=== PATIENT | male | born 1970 | race African-American/Black ===

== ENCOUNTER → 2017-10-09 11:09 | Outpatient (CLI) | payer BC, SELFPAY ==
[2017-10-09 11:50] LABS: Amphetamine Urine VISTA NEGATIVE (<1000 ng/mL); Barbiturate Urine VISTA NEGATIVE (< 200 ng/mL); Benzodiazepine Urine VISTA NEGATIVE (< 200 ng/mL); Cocaine Urine VISTA NEGATIVE (< 300 ng/mL); Ecstacy Urine VISTA NEGATIVE (< 500 ng/mL); Methadone Urine VISTA NEGATIVE (< 300 ng/mL); PCP Urine VISTA NEGATIVE (< 25 ng/mL); THC Urine VISTA NEGATIVE (< 50 ng/mL); Vista UDS pH Range 5
== END ==
PROVIDERS: Family Provider Family Medicine; PCP Family Medicine; Visit Provider Anesthesiology Pain Medicine
DX: F11.20 Opioid dependence, uncomplicated (principal)
CPT/HCPCS: 80307

== ENCOUNTER → 2017-10-31 09:30 | Outpatient (CLI) | payer BC, SELFPAY ==
[2017-10-31 12:16] LABS: Absolute Lymphocyte Count 1.87 X10^3/ul (0.83-4.51); Absolute Neutrophil Count 3.8 X10^3/uL (2.0-7.7); Basophil# 0.01 X10^3/uL; Basophil% 0.2 % (0-1); Eosinophil# 0.19 X10^3/uL; Hematocrit 42.9 % (40-54); Hemoglobin 14.3 g/dl (13.0-16.5); Lymphocyte # 1.87 X10^3/ul (4.0); Lymphocyte % 29.2 % (19-41); Mean Corp Hgb Conc 33.3 g/gl (32-36); Mean Corpuscular Hgb 30.5 pg (27.0-32.0); Mean Corpuscular Volume 91.5 fL (80-94); Mean Platelet Vol. 10.1 fl (6.2-12.0); Monocyte# 0.48 X10^3/uL; Monocyte% 7.5 % (0-10); Neutrophil # 3.84 X10^3/uL (2.7-7.7); Neutrophil % 59.9 % (47-70); Platelet Count 318 K/mm3 (150-450); RBC Distribution Width CV 13.4 % (11.6-14.6); RBC Distribution Width SD 44.3 fl (35.1-43.9); Red Blood Count 4.69 M/mm3 (4.6-6.2); White Blood Count 6.4 K/mm3 (4.4-11.0)
[2017-10-31 12:26] LABS: POSITIVE COUNT NO; POSITIVE DIFFERENTIAL NO; POSITIVE MORPHOLOGY NO
[2017-10-31 12:58] LABS: Anion Gap 8 (5-15); BUN 15 mg/dL (7-18); BUN/Creat Ratio 11.6 RATIO (10-20); Calcium,Total 8.9 mg/dL (8.5-10.1); Chloride 107 mmol/L (98-107); Creatinine, Serum 1.29 mg/dL (0.70-1.30); EST Glomerular Filtration Rate 63 mL/min (>60); Est Glom Filt Rate - Afr Amer 76 mL/min (>60); Glucose 94 mg/dL (74-106); PSA,Total - Annual Screen 0.35 ng/mL (0.00-4.00); Potassium 4.2 mmol/L (3.5-5.1); Sodium Level 142 mmol/L (136-145)
== END ==
PROVIDERS: Family Provider Family Medicine; PCP Family Medicine; Visit Provider Family Medicine
DX: I12.9 Hypertensive chronic kidney disease with stage 1 through stage 4 chronic kidney disease, or unspecified chronic kidney disease (principal); N18.2 Chronic kidney disease, stage 2 (mild); E29.1 Testicular hypofunction; Z12.5 Encounter for screening for malignant neoplasm of prostate
CPT/HCPCS: 36415; 80048; 84153; 84403; 85025; G0103

== ENCOUNTER → 2018-02-20 06:24 | Outpatient (CLI) | payer BC, SELFPAY ==
--- NOTE | 2018-02-20 06:38 | MRI_ITS ---
STUDY: MRI LUMBAR SPINE WITHOUT CONTRAST REASON FOR EXAM: Male, 47 years old. back pain, left leg pain; hx prior fusion 2013, bilat leg weakness, lt sciatic pain. TECHNIQUE: Standardized fat and water weighted pulse sequences were obtained in the sagittal and axial planes. COMPARISON: March 27, 2014 FINDINGS: T12-L1: Normal endplates. Normal disc height, hydration and morphology. Normal bilateral facet joints. Normal central canal and bilateral lateral recesses. Normal bilateral intervertebral neural foramina. Normal lumbar lordosis. There is no substantial scoliosis. Normal conus medullaris that terminates at the T12/L1 L1-2: Normal endplates. Normal disc height, hydration and morphology. Normal bilateral facet joints. Normal central canal and bilateral lateral recesses. Normal bilateral intervertebral neural foramina. L2-3: Normal endplates. Normal disc height, hydration and morphology. Normal bilateral facet joints. Normal central canal and bilateral lateral recesses. Normal bilateral intervertebral neural foramina. L3-4: There is minimal disc space narrowing and endplate spondylosis. There is a mild disc bulge asymmetric to the left with mild left foraminal stenosis. There is no significant central canal or right foraminal stenosis. L4-5: There is mild disc space narrowing and endplate spondylosis. There is a disc spacer in place. There is a posterior transpedicular screw fixation. There is no significant central canal stenosis. There is mild bilateral foraminal stenosis. L5-S1: There is minimal disc space narrowing and endplate spondylosis. There is a mild disc bulge and facet arthropathy without significant central canal stenosis. There is mild right foraminal stenosis. Normal visualized sacral ala. Normal visualized paraspinous soft tissue structures. MRI/Spine Lumbar (Routine) IMPRESSION: L4/L5: Posterior fusion. Electronically Signed: Adrien Berry MD at 8:03 EDT Tel , Service support ,
== END ==
PROVIDERS: Family Provider Family Medicine; PCP Family Medicine; Visit Provider Anesthesiology Pain Medicine
DX: M54.9 Dorsalgia, unspecified (principal); M79.605 Pain in left leg
CPT/HCPCS: 72148

== ENCOUNTER → 2018-07-27 12:14 | Outpatient (CLI) | payer BC, SELFPAY ==
[2018-07-27 13:38] LABS: Amphetamine Urine VISTA NEGATIVE (<1000 ng/mL); Barbiturate Urine VISTA NEGATIVE (< 200 ng/mL); Benzodiazepine Urine VISTA NEGATIVE (< 200 ng/mL); Cocaine Urine VISTA NEGATIVE (< 300 ng/mL); Ecstacy Urine VISTA NEGATIVE (< 500 ng/mL); Methadone Urine VISTA NEGATIVE (< 300 ng/mL); PCP Urine VISTA NEGATIVE (< 25 ng/mL); THC Urine VISTA NEGATIVE (< 50 ng/mL); Vista UDS pH Range 6
== END ==
PROVIDERS: Family Provider Family Medicine; PCP Family Medicine; Referring Provider Anesthesiology Pain Medicine; Visit Provider Anesthesiology Pain Medicine
DX: F11.20 Opioid dependence, uncomplicated (principal)
CPT/HCPCS: 80307

== ENCOUNTER → 2019-02-25 09:13 | Outpatient (CLI) | payer BC, SELFPAY ==
[2019-02-25 12:28] LABS: Absolute Lymphocyte Count 2.17 X10^3/uL (0.83-4.51); Absolute Neutrophil Count 4.3 X10^3/uL (2.0-7.7); Basophil# 0.03 X10^3/uL; Basophil% 0.4 % (0-1); Eosinophil# 0.21 X10^3/uL; Eosinophils% 2.9 % (0-5); Hematocrit 42.8 % (40-54); Hemoglobin 14.1 g/dL (13.0-16.5); Lymphocyte # 2.17 X10^3/ul (4.0); Lymphocyte % 29.8 % (19-41); Mean Corp Hgb Conc 32.9 g/dL (32-36); Mean Corpuscular Hgb 30.7 pg (27.0-32.0); Mean Corpuscular Volume 93.2 fL (80-94); Mean Platelet Vol. 10.6 fl (6.2-12.0); Monocyte% 8.2 % (0-10); NRBC Flagged by Analyzer 0 % (0-5); Neutrophil # 4.26 X10^3/uL (2.7-7.7); Neutrophil % 58.6 % (47-70); Platelet Count 290 K/mm3 (150-450); RBC Distribution Width CV 12.9 % (11.6-14.6); RBC Distribution Width SD 43.8 fl (35.1-43.9); Red Blood Count 4.59 M/mm3 (4.6-6.2); White Blood Count 7.3 K/mm3 (4.4-11.0)
[2019-02-25 12:46] LABS: ALB/GLOB Ratio 1.1 RATIO (0.9-2.4); AST(SGOT) 21 U/L (15-37); Alanine Aminotransfer ALT/SGPT 52 U/L (16-61); Albumin, Serum 3.9 g/dL (3.2-5.0); Alkaline Phosphatase 55 U/L (45-117); Anion Gap 6 (5-15); BUN 16 mg/dL (7-18); BUN/Creat Ratio 12.2 RATIO (10-20); Calcium,Total 8.7 mg/dL (8.5-10.1); Chloride 110 mmol/L (98-107); Cholesterol 138 mg/dL (200); Creatinine, Serum 1.31 mg/dL (0.70-1.30); EST Glomerular Filtration Rate 62 mL/min (>60); Est Glom Filt Rate - Afr Amer 75 mL/min (>60); Globulin 3.4 g/dL (2.2-4.2); Glucose 93 mg/dL (74-106); High Density Lipoprotein 41 mg/dL; Magnesium 2.4 mg/dL (1.6-2.6); PSA,Total - Annual Screen 0.36 ng/mL (0.00-4.00); Potassium 4.3 mmol/L (3.5-5.1); Protein, Total 7.3 g/dL (6.4-8.2); Sodium Level 142 mmol/L (136-145); Triglycerides 50 mg/dL; Very Low Density Lipoprotein 10 mg/dL (5-40)
== END ==
PROVIDERS: Family Provider Family Medicine; PCP Family Medicine; Visit Provider Family Medicine
DX: R25.2 Cramp and spasm (principal); Z78.9 Other specified health status; R35.1 Nocturia; I12.9 Hypertensive chronic kidney disease with stage 1 through stage 4 chronic kidney disease, or unspecified chronic kidney disease; N18.2 Chronic kidney disease, stage 2 (mild)
CPT/HCPCS: 36415; 80053; 80061; 83735; 84153; 85025; G0103

== ENCOUNTER → 2019-03-04 08:07 | Outpatient (CLI) | payer BC, SELFPAY ==
--- NOTE | 2019-03-04 08:11 | US_ITS ---
STUDY: RENAL ULTRASOUND - COMPLETE REASON FOR EXAM: Male, 48 years old. Chronic renal disease TECHNIQUE: Ultrasound evaluation of the kidneys was performed with real-time and static jolley-scale imaging. COMPARISON: None. FINDINGS: RIGHT KIDNEY: Normal location of the right kidney, which is normal in size. The right kidney measures 11.8 x 5.9 x 5.6 cm. There is a normal cortex of the right kidney. The renal cortex measures 2.2 cm. There is no right renal mass or cyst. There are no right renal calculi. There is no right hydronephrosis. DISTAL RIGHT URETER: There is non-visualization of the distal right ureter. There is no demonstrated right ureterovesical junction calculus. There is a visualized right ureteral jet. LEFT KIDNEY: Normal location of the left kidney, which is normal in size. The left kidney measures 11.7 x 4.5 x 6.3 cm. There is a normal cortex of the left kidney. The renal cortex measures 1.7 cm. There is no left renal mass or cyst. There are no left renal calculi. There is no left hydronephrosis. DISTAL LEFT URETER: There is non-visualization of the distal left ureter. There is no demonstrated left ureterovesical junction calculus. There is a visualized left ureteral jet. There are diffusely increased cortical echoes and prominent renal pyramids consistent with nonspecific renal parenchymal disease. BLADDER: The distended urinary bladder has a volume of 62.60 ml. The empty urinary bladder has a volume of 3.7 ml. There is a normal wall thickness of the distended urinary bladder. There is no demonstrated mass within the urinary bladder. There are no demonstrated bladder calculi. US/Kidney and Bladder IMPRESSION: Findings consistent with nonspecific renal parenchymal disease Electronically Signed: Aneudy Alston MD at 18:00 EDT , Service support ,
== END ==
PROVIDERS: Family Provider Family Medicine; PCP Family Medicine; Referring Provider Family Medicine; Visit Provider Family Medicine
DX: I12.9 Hypertensive chronic kidney disease with stage 1 through stage 4 chronic kidney disease, or unspecified chronic kidney disease (principal); N18.2 Chronic kidney disease, stage 2 (mild)
CPT/HCPCS: 76770

== ENCOUNTER → 2019-04-01 10:20 | Outpatient (CLI) | payer BC, SELFPAY ==
--- NOTE | 2019-04-01 10:25 | RAD_ITS ---
STUDY: X-RAY - LUMBAR SPINE REASON FOR EXAM: Male, 48 years old. Low back pain TECHNIQUE: 3 view(s) of the lumbar spine were obtained. COMPARISON: 20 February 2018, FINDINGS: Normal lumbar lordosis. There is no substantial scoliosis. There is a normal alignment of the vertebrae. Normal vertebral bodies and endplates. Normal disc space heights. There is L5-S1 pedicular screw fusion and disc spacer. Hardware is intact with normal bone interface. The soft tissue structures are unremarkable. RAD/Lumbar Spine 2 or 3 Views IMPRESSION: Expected appearance of L5-S1 pedicular screw fusion. Otherwise unremarkable lumbar radiograph. Electronically Signed: Guera Tillman, at 18:25 EDT Tel , Service support ,
== END ==
PROVIDERS: Family Provider Family Medicine; PCP Family Medicine; Referring Provider Anesthesiology Pain Medicine; Visit Provider Anesthesiology Pain Medicine
DX: M54.9 Dorsalgia, unspecified (principal)
CPT/HCPCS: 72100

== ENCOUNTER → 2019-05-15 10:40 | Outpatient (CLI) | payer BC, SELFPAY ==
[2019-05-15 11:11] LABS: Color, Urine Yellow (Yellow); Glucose, Dipstick Normal (Normal); Ketone-Dipstick Negative (Negative); Leukocyte Esterase-Dipstick Negative /ul (Negative); Nitrite-Dipstick Negative (Negative); Occult Blood-Urine 50 /ul (Negative); Protein-Dipstick 500 mg/dl (Negative); Urine Bilirubin Dipstick Negative (Negative); Urine Clarity Clear (Clear); Urine Urobilinogen Normal (Normal)
[2019-05-15 11:20] LABS: 24 Hour Urine Protein 2062.5 mg/24HR (<150 MG/24HR); 24HR. UA Prot. Total Volume 750 mL
[2019-05-15 11:21] LABS: Protein, Urine (Random) 480.6 mg/dL (<11.9); Protein:Creat Ratio 1986 mg/g CRE (0-200)
[2019-05-15 11:31] LABS: Anion Gap 6 (5-15); BUN 28 mg/dL (7-18); BUN/Creat Ratio 15.5 RATIO (10-20); Calcium,Total 8.7 mg/dL (8.5-10.1); Chloride 102 mmol/L (98-107); Creat.Clear Total Volume 750 mL; Creatinine Clearance 80 ml/min (100-200); Creatinine Serum Creat 1.8 mg/dL (0.8-1.3); Creatinine, Serum 1.81 mg/dL (0.70-1.30); EST Glomerular Filtration Rate 42 mL/min (>60); Est Glom Filt Rate - Afr Amer 51 mL/min (>60); Glucose 81 mg/dL (74-106); Potassium 4.1 mmol/L (3.5-5.1); Sodium Level 137 mmol/L (136-145)
[2019-05-17 15:18] LABS: PROEL- A/G Ratio 1.1 (0.7-1.7); PROEL- Albumin 3.5 g/dL (2.9-4.4); PROEL- Alpha-1 Globulin 0.3 g/dL (0.0-0.4); PROEL- Alpha-2 Globulin 0.9 g/dL (0.4-1.0); PROEL- Beta Globulin 1.2 g/dL (0.7-1.3); PROEL- Globulin, Total 3.3 g/dL (2.2-3.9); PROEL- TOTAL PROTEIN 6.8 g/dL (6.0-8.5); PROELU- Albumin, Urine 72.2 % (.); PROELU- Alpha-1-Globulin,Ur 7.5 % (.); PROELU- Alpha-2-Globulin,Ur 6.1 % (.); PROELU- Beta Globulin, Ur 9.1 % (.); PROELU- Gamma Globulin, Ur 5.1 % (.)
[2019-05-17 16:57] LABS: Total Protein, Ur 480.9 mg/dL (Not Estab.)
== END ==
PROVIDERS: Family Provider Family Medicine; PCP Family Medicine; Referring Provider Internal Medicine; Visit Provider Internal Medicine
DX: N18.2 Chronic kidney disease, stage 2 (mild) (principal)
CPT/HCPCS: 36415; 80048; 81002; 81050; 82570; 82575; 84156; 84165; 84166

== ENCOUNTER → 2019-10-14 12:32 | Outpatient (CLI) | payer BC, SELFPAY ==
[2019-10-14 13:31] LABS: Color, Urine Yellow (Yellow); Glucose, Dipstick Normal (Normal); Ketone-Dipstick Negative (Negative); Leukocyte Esterase-Dipstick Negative /ul (Negative); Nitrite-Dipstick Negative (Negative); Occult Blood-Urine Negative /ul (Negative); Protein-Dipstick Negative (Negative); Urine Bilirubin Dipstick Negative (Negative); Urine Clarity Clear (Clear); Urine Urobilinogen Normal (Normal)
[2019-10-14 13:32] LABS: Protein, Urine (Random) 16.1 mg/dL (<11.9); Protein:Creat Ratio 71 mg/g CRE (0-200)
[2019-10-14 13:37] LABS: Anion Gap 3 (5-15); BUN 16 mg/dL (7-18); BUN/Creat Ratio 13.9 RATIO (10-20); Calcium,Total 9.1 mg/dL (8.5-10.1); Chloride 111 mmol/L (98-107); Creatinine, Serum 1.15 mg/dL (0.70-1.30); EST Glomerular Filtration Rate 71 mL/min (>60); Est Glom Filt Rate - Afr Amer 86 mL/min (>60); Glucose 85 mg/dL (74-106); Phosphorus 2.9 mg/dL (2.5-4.9); Potassium 4.2 mmol/L (3.5-5.1); Sodium Level 141 mmol/L (136-145)
[2019-10-14 13:39] LABS: PTHIN 42.4 pg/mL (18.4-80.1)
[2019-10-14 13:43] LABS: Vitamin D,25 Hydroxy 14.5 ng/mL
== END ==
PROVIDERS: PCP Family Medicine; Visit Provider Internal Medicine
DX: N18.3 Chronic kidney disease, stage 3 (moderate) (principal)
CPT/HCPCS: 36415; 80048; 81002; 82306; 82570; 83970; 84100; 84156

== ENCOUNTER → 2019-10-31 10:46 | Outpatient (CLI) | payer BC, SELFPAY ==
[2019-10-31 12:59] LABS: Amphetamine Urine VISTA NEGATIVE (<1000 ng/mL); Barbiturate Urine VISTA NEGATIVE (< 200 ng/mL); Benzodiazepine Urine VISTA NEGATIVE (< 200 ng/mL); Cocaine Urine VISTA NEGATIVE (< 300 ng/mL); Ecstacy Urine VISTA NEGATIVE (< 500 ng/mL); Methadone Urine VISTA NEGATIVE (< 300 ng/mL); PCP Urine VISTA NEGATIVE (< 25 ng/mL); THC Urine VISTA NEGATIVE (< 50 ng/mL); Vista UDS pH Range 6
== END ==
PROVIDERS: PCP Family Medicine; Visit Provider Anesthesiology Pain Medicine
DX: F11.20 Opioid dependence, uncomplicated (principal)
CPT/HCPCS: 80307

== ENCOUNTER 2020-04-03 08:48 | Day surgery (SDC) | payer BC, SELFPAY ==
[2020-03-05 08:53] VITALS: BMI 28.5
[2020-04-03] VITALS (11 sets, daily range): BP systolic 105–134; BP diastolic 70–98; PULSE 59–80; RESP 16; TEMP 36.3–36.6; O2SAT 96–100; BMI 28.7
--- NOTE | 2020-04-03 06:00 | HP_ITS ---
In the context of an I have re-examined the patient. There are no clinical changes since date of exam.Intake Vital Signs 03/05/20 Height 5 ft 11 in 03/05/20 Weight: 205 lb 03/05/20 BMI 28.5 Intake Visit Reasons: Right hand Accompanied by: Self Is patient in pain?: Yes Pain scale (1-10): 6 Allergies acetaminophen [From Vicodin] Allergy (Mild, Verified 03/05/20 08:55) Other hydrocodone [From Vicodin] Allergy (Mild, Verified 03/05/20 08:55) Other Gadolinium-MRI Contrast Medium Allergy (Verified 03/05/20 09:09) Other iodine Allergy (Verified 03/05/20 09:09) Other tramadol Allergy (Verified 03/05/20 08:55) Other Medications Amlodipine/Valsartan [Exforge 5-160 MG Tablet] 1 tab PO DAILY 07/26/13 [History Confirmed 03/05/20] Valacyclovir HCl [Valacyclovir] 500 mg PO DAILY 07/26/13 [History Confirmed 03/05/20] cyclobenzaprine 5 mg tablet mg PO 03/05/20 [History Confirmed 03/05/20] famotidine 40 mg tablet 40 mg PO BID tab 03/05/20 [History Confirmed 03/05/20] fenofibric acid (choline) 135 mg capsule,delayed release mg PO 03/05/20 [History Confirmed 03/05/20] fexofenadine 60 mg tablet 60 mg PO Q12H 03/05/20 [History Confirmed 03/05/20] pravastatin 80 mg tablet PO 03/05/20 [History Confirmed 03/05/20] triamcinolone acetonide 55 mcg nasal spray aerosol 1 spray INTRANASAL DAILY 03/05/20 [History Confirmed 03/05/20] [facility] Medical History (Updated 03/05/20 @ 09:19 by Ana Del Valle) L4 L5 fusion (Acute) history of trigger finger release (Acute) HTN (hypertension) (Chronic) Stage 2 chronic kidney disease (Chronic) Surgical History (Updated 03/05/20 @ 09:07 by Ana Del Valle) History of carpal tunnel release of both wrists (Acute) Family History (Updated 03/05/20 @ 09:01 by Ana Del Valle) Mother Diabetes Hypertension Father Colon cancer Hypertension Social History (Updated 03/05/20 @ 11:[address] Roxana Russell DO) household members: spouse, children housing: house Smoking Status: Never smoker alcohol intake: never what type of physical activity do you participate in: none do you feel safe at home: Yes HPI Right hand: Surgical H&P: Yes Details: Parts of this documentation were recorded by a scribe, this documentation accurately reflects the service provided and the decisions made by me, Dr. Roxana Russell DO 03/05/20 0844. BIANCA MATTHEWS is a 49 year old M here today to establish as a new patient. Patient was referred by Dr. Regalado for trigger finger. C/o trigger finger with his third metacarpal of right hand. Unable to extend finger fully. Onset: little over a year. Patient has a h/o trigger fingers: second and fourth metacarpal of right hand and fourth metacarpal of left hand, as well as bilateral Carpal Tunnel surgery by Dr. Delacruz. Patient voiced he has tried injections, and were not effective. Patient would like to discuss surgical intervention today. ROS Const Reports system reviewed and no additional complaints, except as docu, Denies body aches, Denies chills, Denies fatigue, Denies fever(s), Denies headache(s), Reports weakness ENT Denies headache(s) Card Reports system reviewed and no additional complaints, except as docu, Denies chest pain, Denies shortness of breath Resp Reports system reviewed and no additional complaints, except as docu, Denies chest congestion, Denies cough, Denies shortness of breath GI Reports system reviewed and no additional complaints, except as docu, Denies abdominal pain, Denies constipation, Denies incontinent of stools, Denies loose stools Reports system reviewed and no additional complaints, except as docu, Denies urinary incontinence Musc Reports system reviewed and no additional complaints, except as docu, Reports joint pain, Reports joint swelling, Denies numbness, Reports stiffness, Denies tingling Skin/Breast Reports system reviewed and no additional complaints, except as docu, Denies dry skin, Denies redness, Denies lesions, Denies new lesions, Denies non-healing lesions, Denies itching, Denies rash, Denies skin ulcer, Denies sores, Denies wounds Neuro Yes system reviewed and no additional complaints, except as docu, No headache(s), No numbness, No tingling, Yes weakness Endo Denies fatigue Ortho Exam Right Wrist/Hand A1 charles trigger: Yes Right Wrist: Yes ROM-Extension 0-60, ROM-Flexion 0-80, ROM-Pronation 0-80, ROM- Supination 0-90, TTP Fracture site and Snuffbox tenderness; no Durken's Test, Giacomo's Test or Tinel's Motor: EPL: 5, FDP-2: 5, 1st Dorsal Interosseous: 5, APB: 5 Sensation: Radial: I, Ulnar: I, Median: I Assessment & Plan Problems 1. Trigger finger, right middle finger M65.331 Plan Obtained X-rays of patient's right hand. Personally reviewed X-rays. There is no obvious fracture, dislocation, or lucency noted. See chart for further details. Educated on trigger finger, finger gets swollen and you cut the charles. Reviewed the pre-operative plans with the patient. Risks and benefits of the procedure were fully explained, including but not limited to infection, neurovascular injury, continued pain, arthritis, stiffness, need for further surgery, re-injury, DVT, PE, general risks of anesthesia, and loss of limb or life. The patient understands all the risks and does wish to proceed with written consent. Advised where incisions would be placed. Skin takes two weeks to heal. Keep hand clean and dry for the first five days. Advised patient, we will keep patient off work for two weeks. Since patient would not be able to keep hand clean and dry. All questions answered. Patient in agreement of plan. We discussed the current risk associated COVID-19. While it is understood that there is a community spread of COVID 19 the risk of yovany COVID-19 while at [facility] is very low, however, the risk cannot be completely mitigated because of the community spread of the disease. We discussed in detail the risk of exposure to and or potential harm posed by the COVID-19 virus with having a surgery/procedure at this time versus the risk of delaying the surgery/procedure. Is not possible to know either the risk of delaying the surgery procedure or chance of getting an infection with perfect accuracy, but a joint decision was made to proceed at this time with a schedule surgery/procedure as indicated on the consent form. Patient was notified that we will need to comply with any screening or testing [facility] wishes to perform or that surgery may be delayed for any positive results. I would like to thank Dr. Regalado for this referral. Orders Orders: Hand Min 3 Views Today M65.30 Coding Level of Care Code 78491 Diagnoses Trigger finger, right middle finger M65.331
[2020-04-03] MEDS: Lactated Ringers 1,000 ML 100 ML IV (09:43)
[2020-04-03] MEDS: Cefazolin 2 GM in 0.9% Normal Saline 100 ML IV (10:27)
[2020-04-03] MEDS: Mupirocin Ointment 22gm Tube 1 APPLIC (11:00)
--- NOTE | 2020-04-03 11:06 | PCM.OPRPT ---
Report of Operation Date of Procedure: 04/03/20 Pre-Operative Diagnosis: right middle trigger finger Post-Operative Diagnosis: same Surgery/Procedure Performed:: right A1 charles release middle finger Type of Anesthesia:: Markos Kim Anesthesiologist: José Miguel Hernandez Estimated Blood Loss (mL): none Fluids Replaced: 500cc Description of Procedure: Preoperative note Patient is a 49 year-old female who came into my office with a locked in quite painful right third middle finger. failed conservative treatment, patient decided to release middle trigger so he can regain function and decrease pain and locking. Risks benefits and alternatives surgery discussed with patient. Risks including but not limited to blood loss, blood clot, infection, neurovascular injury, failure procedure, loss of life and loss of limb. Patient is aware would like proceed with right trigger finger middle release A1 charles release. Operative note Patient seen and examined preoperative holding area. Right middle finger was marked. Patient is brought to the operating room and placed supine on the operating table. Sign, anesthesia, antibiotics were administered. The right arm was prepped and draped in usual sterile fashion after Lewis block was initiated. We did test the Markos block it was working. Timeout was performed. We marked out our incision at the A1 charles of the right middle finger. We was about a centimeter and a half for length. We used a 15 blade to cut the skin tenotomies to dissect down to the level of the A1 charles. We then released the A1 charles both proximally and distally we then brought the tendons out of the incision and flex and extend at the DIP of the right middle finger to ensure that we had no further locking which we did not have. We then irrigated the incision with copious amounts of sterile saline. Incision was closed with interrupted 4-0 nylon stitches. Tourniquet was deflated for total working time of 6 minutes. Patient tolerated procedure well there are no complications, patient transferred to recovery room in stable condition. Postoperative note Use hand as tolerated but keep incision clean and dry Discussed with family Follow-up in 2 weeks for dressing change and suture removal OTC family This note was generated with [employer] software. It may contain incorrect words, spelling, and punctuation that were not noted in checking the note before signing.
--- NOTE | 2020-04-03 11:08 | DCINST_ITS ---
Discharge Diet: No Restrictions - keep dressing clean and dry, follow up in 2 weeks Discharge Activity: May Not Drive May shower in (days): 1 Ice area for (Minutes): 20 - Every hour while awake. Weight Bearing Status: Weight bearing as tolerated Keep extremity elevated above heart level: Operative Extremity Call your doctor if your incision/area has: Continuous Slow Oozing, Sudden Increased Bleeding, Increased Pain/ Swelling, Increased Redness, Foul Smelling Discharge Call your doctor if you observe: Fever of 101 or Higher, Coldness, Increased Pain, Numbness or Tingling, Change in Color, Calf discomfort Allergies/Adverse Reactions: Allergies acetaminophen [From Vicodin] Allergy (Mild, Verified 03/25/20 13:38) Other Itching hydrocodone [From Vicodin] Allergy (Mild, Verified 03/25/20 13:38) Other Itching Gadolinium-MRI Contrast Medium Allergy (Verified 03/25/20 13:38) Other iodine Allergy (Verified 03/25/20 13:38) Other tramadol Allergy (Verified 03/25/20 13:38) Other Headache Medications to take at Discharge Amlodipine/Valsartan [Exforge 5-160 MG Tablet] 1 tab PO DAILY 07/26/13 Valacyclovir HCl [Valacyclovir] 500 mg PO DAILY 07/26/13 cyclobenzaprine 5 mg tablet 5 mg PO QHS 03/05/20 famotidine 40 mg tablet 40 mg PO DAILY tab 03/05/20 fenofibric acid (choline) 135 mg capsule,delayed release 1 tab PO DAILY 03/05/20 fexofenadine 60 mg tablet 60 mg PO DAILY 03/05/20 pravastatin 80 mg tablet 1 tab PO QHS 03/05/20 triamcinolone acetonide 55 mcg nasal spray aerosol 1 spray INTRANASAL DAILY 03/05/20 Oxycodone Myristate [Xtampza ER] 18 mg PO 1700 03/25/20 Oxycodone HCl/Acetaminophen [Percocet 5/325] 1 - 2 tab PO Q6H PRN PRN 5 Days #28 tab 04/03/20 The following prescriptions were given: Oxycodone HCl/Acetaminophen [Percocet 5/325] 1 - 2 tab PO Q6H PRN PRN 5 Days #28 tab PRN Reason: Pain Transmission Status: Received by [facility]/pharmacy #[id number] Primary Care Physician: Hudson Overton MD [Primary Care Provider] - Test Results: Test results from this visit will be discussed in further detail at your follow- up appointment, if applicable. Please Follow Up With: Roxana Russell, - [phone]
== END 2020-04-03 13:20 | disposition home or self-care (01) ==
LOC: SDC 08:49 → AC 08:50
PROVIDERS: Anesthesiology; PCP Family Medicine; Referring Provider Orthopaedic Surgery; Visit Provider Orthopaedic Surgery
PROC: (CPT 26055; principal; 2020-04-03 10:20)
DX: M65.331 Trigger finger, right middle finger (principal); I12.9 Hypertensive chronic kidney disease with stage 1 through stage 4 chronic kidney disease, or unspecified chronic kidney disease; N18.2 Chronic kidney disease, stage 2 (mild); E78.00 Pure hypercholesterolemia, unspecified; K21.9 Gastro-esophageal reflux disease without esophagitis; Z98.1 Arthrodesis status; Z79.899 Other long term (current) drug therapy
CPT/HCPCS: 26055; 87635; C9803; J7120; A4216; J2405; U0003

== ENCOUNTER → 2020-07-07 14:18 | Outpatient (CLI) | payer BC, SELFPAY ==
[2020-04-16 09:21] VITALS: BMI 28.5
[2020-07-07 14:26] LABS: Bacteria 0 SEEN /hpf (None Seen); Red Blood Cells-Urine 0 SEEN /hpf (0-5)
[2020-07-07 15:14] LABS: Anion Gap 5 (5-15); BUN 12 mg/dL (7-18); BUN/Creat Ratio 9.6 RATIO (10-20); Calcium,Total 9.4 mg/dL (8.5-10.1); Chloride 112 mmol/L (98-107); Creatinine, Serum 1.25 mg/dL (0.70-1.30); EST Glomerular Filtration Rate 65 mL/min (>60); Est Glom Filt Rate - Afr Amer 78 mL/min (>60); Glucose 91 mg/dL (74-106); Potassium 4.3 mmol/L (3.5-5.1); Sodium Level 141 mmol/L (136-145)
[2020-07-07 15:15] LABS: Color, Urine Yellow (Yellow); Glucose, Dipstick Normal (Normal); Ketone-Dipstick Negative (Negative); Leukocyte Esterase-Dipstick 25 /ul (Negative); Nitrite-Dipstick Negative (Negative); Occult Blood-Urine Negative /ul (Negative); Protein-Dipstick 15 mg/dl (Negative); Specific Gravity, Urine 1.025 (1.002-1.030); Urine Bilirubin Dipstick Negative (Negative); Urine Clarity Clear (Clear); Urine Urobilinogen Normal (Normal)
[2020-07-07 15:20] LABS: Protein, Urine (Random) 10.7 mg/dL (<11.9); Protein:Creat Ratio 29 mg/g CRE (0-200)
[2020-07-07 15:35] LABS: Squamous Epithelial Cells - UA 0-5 SEEN /hpf (0-5); White Blood Cells 5-10 SEEN /hpf (0-5)
[2020-07-07 15:36] LABS: Mucous, Urine 1+ /hpf (<or=2+)
== END ==
PROVIDERS: PCP Family Medicine; Referring Provider Internal Medicine; Visit Provider Internal Medicine
DX: R80.9 Proteinuria, unspecified (principal); N18.30 Chronic kidney disease, stage 3 unspecified
CPT/HCPCS: 36415; 80048; 81001; 82306; 82570; 84156

== ENCOUNTER → 2020-07-28 16:58 | Outpatient (CLI) | payer BC, SELFPAY ==
[2020-04-16 09:21] VITALS: BMI 28.5
--- NOTE | 2020-07-28 17:30 | MRI_ITS ---
STUDY: MRI LUMBAR SPINE WITHOUT CONTRAST REASON FOR EXAM: Male, 50 years old. Back and leg pain TECHNIQUE: Standardized fat and water weighted pulse sequences were obtained in the sagittal and axial planes. COMPARISON: 02/21/2020 FINDINGS: T12-L1: Normal endplates. Normal disc height, hydration and morphology. Normal bilateral facet joints. Normal central canal and bilateral lateral recesses. Normal bilateral intervertebral neural foramina. Normal lumbar lordosis. There is no substantial scoliosis. Normal conus medullaris that terminates at T12 L1-2: Normal endplates. Normal disc height, hydration and morphology. Normal bilateral facet joints. Normal central canal and bilateral lateral recesses. Normal bilateral intervertebral neural foramina. L2-3: Normal endplates. Normal disc height, hydration and morphology. Normal bilateral facet joints. Normal central canal and bilateral lateral recesses. Normal bilateral intervertebral neural foramina. L3-4: Normal endplates. Normal disc height, hydration and small left foraminal disc protrusion. Normal bilateral facet joints. Normal central canal and bilateral lateral recesses. Mild left neuroforaminal stenosis. L4-5: Status post bilateral laminectomy and posterior fusion with disc spacer placement. . Degenerative endplate changes.. Narrowed disc height, hydration and normal morphology. Normal bilateral facet joints. Normal central canal and bilateral lateral recesses. Minor bilateral intervertebral neural foramina. L5-S1: Normal endplates. Normal disc height, hydration and minimal annular bulge with tiny right foraminal disc protrusion.. Mild bilateral facet arthropathy. Normal central canal and bilateral lateral recesses.. Mild right neuroforaminal encroachment. Normal visualized sacral ala. Normal visualized paraspinous soft tissue structures. No significant changes since prior exam MRI/Spine Lumbar (Routine) IMPRESSION: No evidence for acute fracture or other significant bony pathology Postsurgical changes L4-5. Mild multilevel spinal stenosis secondary to disc disease and facet arthropathy. Findings as above Electronically Signed: Aneudy Alston MD at 19:27 EST , Service support ,
== END ==
PROVIDERS: PCP Family Medicine; Referring Provider Anesthesiology Pain Medicine; Visit Provider Anesthesiology Pain Medicine
DX: M54.16 Radiculopathy, lumbar region (principal)
CPT/HCPCS: 72148

== ENCOUNTER → 2020-09-23 09:23 | Outpatient (CLI) | payer BC, SELFPAY ==
[2020-04-16 09:21] VITALS: BMI 28.5
[2020-09-23 10:33] LABS: Amphetamine Urine VISTA NEGATIVE (<1000 ng/mL); Barbiturate Urine VISTA NEGATIVE (< 200 ng/mL); Benzodiazepine Urine VISTA NEGATIVE (< 200 ng/mL); Cocaine Urine VISTA NEGATIVE (< 300 ng/mL); Ecstacy Urine VISTA NEGATIVE (< 500 ng/mL); Methadone Urine VISTA NEGATIVE (< 300 ng/mL); PCP Urine VISTA NEGATIVE (< 25 ng/mL); THC Urine VISTA NEGATIVE (< 50 ng/mL); Vista UDS pH Range 5
== END ==
PROVIDERS: PCP Family Medicine; Referring Provider Anesthesiology Pain Medicine; Visit Provider Anesthesiology Pain Medicine
DX: F11.20 Opioid dependence, uncomplicated (principal)
CPT/HCPCS: 80307

== ENCOUNTER → 2021-03-31 11:24 | Outpatient (CLI) | payer BC, SELFPAY ==
--- NOTE | 2021-03-31 11:28 | RAD_ITS ---
STUDY: X-RAY - CERVICAL SPINE REASON FOR EXAM: Male, 50 years old. RADICULAR PAIN -- R ARM TECHNIQUE: 5 view(s) of the cervical spine were obtained. COMPARISON: 03/27/2017 FINDINGS: There is straightening of the normal cervical lordosis. There is multi-level endplate spondylosis. There is multi-level degenerative disc disease with multilevel disc space narrowing. No demonstrated osseous foraminal stenosis. The soft tissue structures are unremarkable. RAD/Cerv Spine 4 or 5 Views IMPRESSION: Degenerative changes of the spine. Electronically Signed: Adrien Berry MD at 11:23 EDT Tel , Service support ,
== END ==
PROVIDERS: PCP Family Medicine; Referring Provider Family Medicine; Visit Provider Family Medicine
DX: M54.12 Radiculopathy, cervical region (principal)
CPT/HCPCS: 72050

== ENCOUNTER → 2021-05-08 10:57 | Outpatient (CLI) | payer BC, SELFPAY ==
[2021-05-08 11:03] LABS: Bacteria 0 SEEN /hpf (None Seen); Mucous, Urine 0 SEEN /hpf (<or=2+); Red Blood Cells-Urine 0 SEEN /hpf (0-5); Squamous Epithelial Cells - UA 0 SEEN /hpf (0-5)
[2021-05-08 11:27] LABS: Color, Urine Yellow (Yellow); Glucose, Dipstick Normal (Normal); Ketone-Dipstick Negative (Negative); Leukocyte Esterase-Dipstick 25 /ul (Negative); Nitrite-Dipstick Negative (Negative); Occult Blood-Urine Negative /ul (Negative); Protein-Dipstick Negative (Negative); Specific Gravity, Urine 1.025 (1.002-1.030); Urine Bilirubin Dipstick Negative (Negative); Urine Clarity Clear (Clear); Urine Urobilinogen Normal (Normal)
[2021-05-08 11:36] LABS: Protein, Urine (Random) 13.9 mg/dL (<11.9); Protein:Creat Ratio 54 mg/g CRE (0-200)
[2021-05-08 11:45] LABS: Anion Gap 4 (5-15); BUN 15 mg/dL (7-18); BUN/Creat Ratio 12.4 RATIO (10-20); Chloride 112 mmol/L (98-107); Creatinine, Serum 1.21 mg/dL (0.70-1.30); EST Glomerular Filtration Rate 67 mL/min (>60); Est Glom Filt Rate - Afr Amer 81 mL/min (>60); Glucose 95 mg/dL (74-106); Potassium 4.1 mmol/L (3.5-5.1); Sodium Level 142 mmol/L (136-145)
[2021-05-08 11:47] LABS: White Blood Cells 0-5 SEEN /hpf (0-5)
[2021-05-08 11:48] LABS: Vitamin D,25 Hydroxy 21.8 ng/mL
== END ==
PROVIDERS: PCP Family Medicine; Referring Provider Internal Medicine; Visit Provider Internal Medicine
DX: N18.2 Chronic kidney disease, stage 2 (mild) (principal)
CPT/HCPCS: 36415; 80048; 81001; 82306; 82570; 84100; 84156

== ENCOUNTER → 2022-04-18 | Outpatient (CLI) | payer BC, SELFPAY ==
[2022-04-18 13:54] LABS: Amphetamine Urine VISTA NEGATIVE (<1000 ng/mL); Barbiturate Urine VISTA NEGATIVE (< 200 ng/mL); Benzodiazepine Urine VISTA NEGATIVE (< 200 ng/mL); Cocaine Urine VISTA NEGATIVE (< 300 ng/mL); Ecstacy Urine VISTA NEGATIVE (< 500 ng/mL); Methadone Urine VISTA NEGATIVE (< 300 ng/mL); PCP Urine VISTA NEGATIVE (< 25 ng/mL); THC Urine VISTA NEGATIVE (< 50 ng/mL); Vista UDS pH Range 6
== END | disposition home or self-care (01) ==
PROVIDERS: PCP Family Medicine; Referring Provider Anesthesiology Pain Medicine; Visit Provider Anesthesiology Pain Medicine
DX: F11.20 Opioid dependence, uncomplicated (principal)
CPT/HCPCS: 80307

== ENCOUNTER → 2022-07-21 | Outpatient (CLI) | payer BC, SELFPAY ==
[2022-07-21 11:07] LABS: Hematocrit 46.8 % (40-54); Hemoglobin 15.4 g/dL (13.0-16.5); Mean Corp Hgb Conc 32.9 g/dL (32-36); Mean Corpuscular Hgb 30.3 pg (27.0-32.0); Mean Corpuscular Volume 92.1 fL (80-94); Mean Platelet Vol. 9.8 fl (6.2-12.0); Platelet Count 295 K/mm3 (150-450); RBC Distribution Width CV 13.3 % (11.6-14.6); RBC Distribution Width SD 45.8 fl (35.1-43.9); Red Blood Count 5.08 M/mm3 (4.6-6.2); White Blood Count 7.1 K/mm3 (4.4-11.0)
[2022-07-21 11:26] LABS: Protein, Urine (Random) 10.3 mg/dL (<11.9); Protein:Creat Ratio 30 mg/g CRE (0-200)
[2022-07-21 11:27] LABS: Albumin, Serum 4.1 g/dL (3.2-5.0); BUN 13 mg/dL (7-18); BUN/Creat Ratio 10.5 RATIO (10-20); Calcium,Total 9.2 mg/dL (8.5-10.1); Chloride 112 mmol/L (98-107); Creatinine, Serum 1.24 mg/dL (0.70-1.30); EST Glomerular Filtration Rate 65 mL/min (>60); Est Glom Filt Rate - Afr Amer 78 mL/min (>60); Glucose 102 mg/dL (74-106); Phosphorus 2.7 mg/dL (2.5-4.9); Potassium 4.2 mmol/L (3.5-5.1); Sodium Level 143 mmol/L (136-145)
[2022-07-21 11:34] LABS: Vitamin D,25 Hydroxy 43.7 ng/mL
[2022-07-21 11:52] LABS: PTHIN 41.8 pg/mL (18.4-80.1)
== END | disposition home or self-care (01) ==
PROVIDERS: Referring Provider Internal Medicine Nephrology; Visit Provider Internal Medicine Nephrology
DX: E55.9 Vitamin D deficiency, unspecified (principal); N18.31 Chronic kidney disease, stage 3a; R80.9 Proteinuria, unspecified
CPT/HCPCS: 36415; 80069; 82306; 82570; 83970; 84156; 85027

== ENCOUNTER → 2022-09-28 | Outpatient (CLI) | payer BC, SELFPAY ==
[2022-09-28 15:20] LABS: Absolute Lymphocyte Count 2.28 X10^3/uL (0.83-4.51); Absolute Neutrophil Count 5.4 X10^3/uL (2.0-7.7); Basophil# 0.05 X10^3/uL; Basophil% 0.6 % (0-1); Eosinophil# 0.22 X10^3/uL; Eosinophils% 2.6 % (0-5); Hematocrit 48.3 % (40-54); Hemoglobin 15.6 g/dL (13.0-16.5); Lymphocyte # 2.28 X10^3/ul (0.83-4.51); Lymphocyte % 26.5 % (19-41); Mean Corp Hgb Conc 32.3 g/dL (32-36); Mean Corpuscular Hgb 30.4 pg (27.0-32.0); Mean Corpuscular Volume 94.2 fL (80-94); Mean Platelet Vol. 10.4 fl (6.2-12.0); Monocyte# 0.59 X10^3/uL; Monocyte% 6.9 % (0-10); NRBC Flagged by Analyzer 0 % (0-5); Neutrophil # 5.43 X10^3/uL (2.7-7.7); Neutrophil % 63.1 % (47-70); Platelet Count 331 K/mm3 (150-450); RBC Distribution Width CV 13.1 % (11.6-14.6); RBC Distribution Width SD 45.2 fl (35.1-43.9); Red Blood Count 5.13 M/mm3 (4.6-6.2); White Blood Count 8.6 K/mm3 (4.4-11.0)
[2022-09-28 16:02] LABS: Vitamin D,25 Hydroxy 41.1 ng/mL
[2022-09-28 16:17] LABS: AST(SGOT) 27 U/L (15-37); Alanine Aminotransfer ALT/SGPT 49 U/L (16-61); Albumin, Serum 4.1 g/dL (3.2-5.0); Alkaline Phosphatase 64 U/L (45-117); Anion Gap 5 (5-15); BUN 17 mg/dL (7-18); BUN/Creat Ratio 13.6 RATIO (10-20); Calcium,Total 9.2 mg/dL (8.5-10.1); Chloride 109 mmol/L (98-107); Cholesterol 158 mg/dL (200); Creatinine, Serum 1.25 mg/dL (0.70-1.30); EST Glomerular Filtration Rate 64 mL/min (>60); Est Glom Filt Rate - Afr Amer 78 mL/min (>60); Glucose 80 mg/dL (74-106); High Density Lipoprotein 44 mg/dL; Potassium 4.3 mmol/L (3.5-5.1); Protein, Total 8.1 g/dL (6.4-8.2); Sodium Level 135 mmol/L (136-145); Thyroid Stim Hormone (TSH) 1.86 uIU/mL (0.358-3.74); Triglycerides 59 mg/dL; Very Low Density Lipoprotein 12 mg/dL (5-40)
== END | disposition home or self-care (01) ==
LOC: MFPLAB 11:51
PROVIDERS: PCP Family Medicine; Visit Provider Family Medicine
DX: E55.9 Vitamin D deficiency, unspecified (principal); I10 Essential (primary) hypertension
CPT/HCPCS: 36415; 80053; 80061; 82306; 84443; 85025

== ENCOUNTER → 2022-10-07 | Outpatient (CLI) | payer BC, SELFPAY ==
[2022-10-07 16:10] LABS: ALB/GLOB Ratio 1.2 RATIO (0.9-2.4); AST(SGOT) 31 U/L (15-37); Alanine Aminotransfer ALT/SGPT 66 U/L (16-61); Albumin, Serum 4.3 g/dL (3.2-5.0); Alkaline Phosphatase 59 U/L (45-117); Anion Gap 8 (5-15); BUN 14 mg/dL (7-18); BUN/Creat Ratio 12.3 RATIO (10-20); Calcium,Total 9.6 mg/dL (8.5-10.1); Chloride 109 mmol/L (98-107); Creatinine, Serum 1.14 mg/dL (0.70-1.30); EST Glomerular Filtration Rate 71 mL/min (>60); Est Glom Filt Rate - Afr Amer 86 mL/min (>60); Globulin 3.5 g/dL (2.2-4.2); Glucose 97 mg/dL (74-106); Potassium 4.5 mmol/L (3.5-5.1); Protein, Total 7.8 g/dL (6.4-8.2); Sodium Level 141 mmol/L (136-145)
[2022-10-07 16:18] LABS: Absolute Lymphocyte Count 2.32 X10^3/uL (0.83-4.51); Absolute Neutrophil Count 5.2 X10^3/uL (2.0-7.7); Basophil# 0.04 X10^3/uL; Basophil% 0.5 % (0-1); Eosinophil# 0.19 X10^3/uL; Eosinophils% 2.3 % (0-5); Hematocrit 49.9 % (40-54); Lymphocyte # 2.32 X10^3/ul (0.83-4.51); Lymphocyte % 27.9 % (19-41); Mean Corp Hgb Conc 32.1 g/dL (32-36); Mean Corpuscular Hgb 30.2 pg (27.0-32.0); Mean Corpuscular Volume 94.3 fL (80-94); Mean Platelet Vol. 10.1 fl (6.2-12.0); Monocyte# 0.51 X10^3/uL; Monocyte% 6.1 % (0-10); NRBC Flagged by Analyzer 0 % (0-5); Neutrophil # 5.22 X10^3/uL (2.7-7.7); Neutrophil % 62.8 % (47-70); Platelet Count 342 K/mm3 (150-450); RBC Distribution Width CV 13.2 % (11.6-14.6); RBC Distribution Width SD 45.1 fl (35.1-43.9); Red Blood Count 5.29 M/mm3 (4.6-6.2); White Blood Count 8.3 K/mm3 (4.4-11.0)
[2022-10-07 16:23] LABS: D-Dimer Quantitative (DVT/PE) < 0.27 FEU/ug/m (0.27-0.49)
== END | disposition home or self-care (01) ==
LOC: MFPLAB 12:37
PROVIDERS: PCP Family Medicine; Visit Provider Family Medicine
DX: R06.02 Shortness of breath (principal)
CPT/HCPCS: 36415; 80053; 85025; 85379

== ENCOUNTER → 2022-10-10 | Outpatient (CLI) | payer BC, SELFPAY ==
--- NOTE | 2022-10-10 13:48 | STRESSREP ---
Stress Test Report Date: 10/10/2022 Procedure: Pharmacologic stress nuclear imaging study Indications: Chest pain Consent: Per the patient Procedure: The patient underwent pharmacologic (Regadenoson) evaluation with a peak heart rate of 98 beats per minute (58%predicted maximal heart rate) and a peak blood pressure of 148/92 mmHg. The baseline ECG demonstrated normal sinus rhythm. EKG during lexiscan infusion revealed no significant ischemic changes. EKG post infusion revealed no significant ischemic changes [There were no cardiac dysrhythmias pretest, during pharmacologic infusion, or recovery]. [There was no complaint of chest discomfort during pharmacologic infusion or recovery]. The examination was discontinued secondary to completion of protocol. Impression: 1. Lexiscan stress test test is negative for Lexiscan infusion induced EKG changes of ischemia. 2. Lexiscan stress test test is negative for Lexiscan infusion induced chest pain. 3. Results of the nuclear portion of the test is as below Myocardial perfusion imaging study: Technique: The patient was injected with 14.1 millicuries of technetium 99m Cardiolite and subsequently rest SPECT Cardiolite nuclear imaging was obtained in the horizontal long, vertical long, and short axis views. The patient underwent pharmacologic [Regadenoson 0.4mg] evaluation. Please see above for details. The patient was injected with 44.6 millicuries of technetium 99m Cardiolite and subsequently stress SPECT Cardiolite nuclear imaging was obtained in the horizontal long, vertical long, and short axis views. A gated Cardiolite study at peak stress was obtained. Interpretation: Rest and stress SPECT Cardiolite nuclear imaging status post realignment, normalization, and attenuation correction demonstrate no evidence of significant ischemia or infarction. Gated images reveal no significant regional wall motion abnormalities. The reported LVEF is 58%. Impression: 1. There is no evidence of significant ischemia or infarction. 2. Estimated ejection fraction is 58%. This note was generated with [employer] software. It may contain incorrect words, spelling, and punctuation that were not noted in checking the note before signing.
== END | disposition home or self-care (01) ==
PROVIDERS: PCP Family Medicine; Referring Provider Family Medicine; Visit Provider Family Medicine
DX: R07.9 Chest pain, unspecified (principal)
CPT/HCPCS: 78452; 93017; A9500; A4216; J2785

== ENCOUNTER → 2022-10-12 | Outpatient (CLI) | payer BC, SELFPAY ==
--- NOTE | 2022-10-12 13:53 | ECHOD_ITS ---
Version 2 Reason For Study: [place] Procedure This was a 2D Doppler, Color Flow transthoracic echocardiogram. Exam performed in department. Left Ventricle Normal LV size. Moderate concentric left ventricular hypertrophy. Left ventricular systolic function is normal. The estimated ejection fraction is 60 %. No regional wall motion abnormalities noted. Right Ventricle Normal RV size. Normal systolic function. Atria Normal left atrium. Normal right atrium. Mitral Valve Normal mitral valve. Tricuspid Valve Normal tricuspid valve. Aortic Valve Normal aortic valve. Trisinus/trileaflet aortic valve. Pulmonic Valve Normal pulmonic valve. Great Vessels Normal aortic root. The pulmonary artery is normal size. Normal inferior vena cava. Pericardium/Pleural No pericardial effusion. Medication 22 gauge I.V. with prn adaptor inserted into right arm. Performed a rapid injection of agitated mix of 9 cc saline and 1cc air to assess for atrial septal defect. MMode/2D Measurements & Calculations LVIDd: 3.7 cm IVSd: 1.5 cm Ao root diam: 3.2 cm LVIDs: 2.0 cm LVPWd: 1.6 cm RVDd: 3.2 cm FS: 46.7 % LAV(MOD-bp): 32.8 ml LVAd ap4: 22.6 cm2 LVAd ap2: 23.9 cm2 LAV(MOD-bp) Indexed: 15.2 ml/m2 LVLd ap4: 7.8 cm LVLd ap2: 8.2 cm LAV(MOD-sp2): 42.9 ml EDV(MOD-sp4): 56.3 ml EDV(MOD-sp2): 60.6 ml LAV(MOD-sp4): 23.6 ml EDV(sp4-el): 55.8 ml EDV(sp2-el): 59.0 ml LVAs ap4: 11.4 cm2 LVAs ap2: 9.7 cm2 LVLs ap4: 6.9 cm LVLs ap2: 6.9 cm ESV(MOD-sp4): 18.6 ml ESV(MOD-sp2): 13.1 ml ESV(sp4-el): 16.1 ml ESV(sp2-el): 11.6 ml EF(MOD-sp4): 67.0 % EF(MOD-sp2): 78.3 % EF(sp4-el): 71.1 % SV(MOD-sp4): 37.7 ml SV(MOD-sp2): 47.5 ml SV(sp4-el): 39.7 ml LA A4 area: 11.1 cm2 LA dimension(2D): 3.9 cm RA A4 area: 11.6 cm2 TAPSE: 2.2 cm Time Measurements MV dec time: 0.23 sec Doppler Measurements & Calculations MV E max manjeet: 52.1 cm/sec Lat Peak E' Manjeet: 8.5 cm/sec Med Peak E' Manjeet: 6.5 cm/sec MV A max manjeet: 82.6 cm/sec E/E' lat: 6.1 E/E' med: 8.0 MV E/A: 0.63 Ao V2 max: 163.5 cm/sec LV V1 max: 111.5 cm/sec MV dec slope: 222.8 cm/sec2 Ao max P.7 mmHg LV V1 max P.0 mmHg PA V2 max: 84.6 cm/sec TR max manjeet: 225.2 cm/sec TR max P.3 mmHg ECHO/Echo Complete Interpretation Summary Normal LV size. Moderate concentric left ventricular hypertrophy. Left ventricular systolic function is normal. The estimated ejection fraction is 60 %. Apical preservation noted. Consider Amyloid. The global longitudinal strain is borderline abnormal. The global longitudinal strain = -16.5% (abnormal). Ordering Physician: Mark Alcantara Referring Physician: Mark Alcantara Performed By: Rubina Ramos RDCS
== END | disposition home or self-care (01) ==
LOC: CVS 13:51
PROVIDERS: PCP Family Medicine; Referring Provider Family Medicine; Visit Provider Family Medicine
DX: R06.02 Shortness of breath (principal)
CPT/HCPCS: 93306; A4216

== ENCOUNTER → 2022-12-03 | Outpatient (CLI) | payer BC, SELFPAY ==
--- NOTE | 2022-12-03 10:28 | MRI_ITS ---
STUDY: MRI LUMBAR SPINE WITHOUT CONTRAST REASON FOR EXAM: Male, 52 years old patient with radiculopathy, low back pain, and left leg numbness. TECHNIQUE: Standardized fat and water weighted pulse sequences were obtained in the sagittal and axial planes. COMPARISON: Radiographs of the lumbar spine dated July 28, 2020. FINDINGS: T12-L1: Normal endplates. Normal disc height, signal and morphology. Normal bilateral facet joints. Normal central canal and bilateral lateral recesses. Normal bilateral intervertebral neural foramina. There is straightening of the normal lumbar lordosis. There is no substantial scoliosis. Normal conus medullaris that terminates at the T12-L1 level. L1-2: Normal endplates. Normal disc height, signal and morphology. Normal bilateral facet joints. Normal central canal and bilateral lateral recesses. Normal bilateral intervertebral neural foramina. L2-3: Normal endplates. Normal disc height, signal and morphology. Normal bilateral facet joints. Normal central canal and bilateral lateral recesses. Normal bilateral intervertebral neural foramina. L3-4: There is mild annular disk bulge and osteophyte complex. There is mild degenerative arthropathy of the facet joints. Bilateral neuroforamina are narrowed without MR evidence for nerve impingement. There is no appreciable acquired central canal stenosis. L4-5: The patient appears to have had discectomy at this level. There are interpedicular screws are present at L4 and L5 secondary to surgical fusion. Neuroforamina are narrowed, greater on the left with potential left-sided L4 nerve impingement. The right neural foramen is mildly narrowed. There is no central acquired canal stenosis. L5-S1: Normal endplates. Normal disc height, signal and morphology. Normal bilateral facet joints. Normal central canal and bilateral lateral recesses. Normal bilateral intervertebral neural foramina. Normal visualized sacral ala. Normal visualized paraspinous soft tissue structures. MRI/Spine Lumbar (Routine) IMPRESSION: 1. Postoperative changes at L4-5 with central left-sided nerve root impingement. 2. Multilevel degenerative changes of the lumbar spine, as described. Electronically Signed: Cristina Reinoso MD at 7:35 EDT ,
== END | disposition home or self-care (01) ==
LOC: MRI 10:22
PROVIDERS: PCP Family Medicine; Referring Provider Anesthesiology Pain Medicine; Visit Provider Anesthesiology Pain Medicine
DX: M96.1 Postlaminectomy syndrome, not elsewhere classified (principal)
CPT/HCPCS: 72148

== ENCOUNTER 2023-02-17 09:26 | Day surgery (SDC) | payer BC, SELFPAY ==
[2023-02-17] VITALS (7 sets, daily range): BP systolic 121–151; BP diastolic 58–89; PULSE 64–75; RESP 16–17; TEMP 35.9–36.6; O2SAT 98–100; BMI 30.4
[2023-02-17] MEDS: Lactated Ringers 1,000 ML 15 ML IV (09:48)
[2023-02-17] MEDS: Cefazolin 2 GM in 0.9% Normal Saline (100mL Bag) 100 ML IV (11:40)
--- NOTE | 2023-02-17 11:40 | RAD_ITS ---
PROCEDURE: Spinal cord stimulator placement. DATE OF EXAMINATION: February 17, 2023. INDICATION: Male, 52 years old. Chronic back pain. FLUOROSCOPY TIME (if supplied): (382 seconds) minutes/seconds. 266.68 mGy Intraoperative imaging provided for spinal cord stimulator device placement. RAD/Lumbar Spine 2 or 3 Views IMPRESSION: Intraoperative imaging provided for spinal cord stimulator device placement. Electronically Signed: Justin Winston MD at 14:03 EDT ,
[2023-02-17] MEDS: Bupivacaine 0.25% 30 ML Vial (12:50)
[2023-02-17] MEDS: Lidocaine 2% /Epi 1:100 (20ml) 20 ML VIAL (12:50)
[2023-02-17] MEDS: Acetaminophen 325 MG Tablet PO (14:50)
[2023-02-17] MEDS: oxyCODONE 5 MG Tablet PO (14:50)
== END 2023-02-17 16:00 | disposition home or self-care (01) ==
LOC: SDC 09:26 → AC 09:28
PROVIDERS: PCP Family Medicine; Referring Provider Anesthesiology Pain Medicine; Visit Provider Anesthesiology Pain Medicine
PROC: (CPT 63685; principal; 2023-02-17 10:45)
DX: M54.16 Radiculopathy, lumbar region (principal); K21.9 Gastro-esophageal reflux disease without esophagitis; N18.2 Chronic kidney disease, stage 2 (mild); I12.9 Hypertensive chronic kidney disease with stage 1 through stage 4 chronic kidney disease, or unspecified chronic kidney disease; M96.1 Postlaminectomy syndrome, not elsewhere classified
CPT/HCPCS: 63650; 63685; 00630; 72100; 76000; C1778; C1820; J7120; J2405

== ENCOUNTER → 2023-06-16 | Outpatient (CLI) | payer BC, SELFPAY ==
--- NOTE | 2023-06-16 16:15 | RAD_ITS ---
EXAM: XR ABDOMEN, 2 VIEWS AND XR CHEST, 1 VIEW CLINICAL INDICATION: pain TECHNIQUE: Frontal view of the chest, frontal view of the abdomen/pelvis and upright or decubitus view of the abdomen. COMPARISON: No relevant prior studies available. FINDINGS: CHEST: LUNGS AND PLEURAL SPACES: Normal. No consolidation or edema. No pneumothorax. No effusion. HEART: Normal. Normal heart size. MEDIASTINUM: No mediastinal or hilar mass. ABDOMEN: INTRAPERITONEAL SPACE: No free air. GASTROINTESTINAL TRACT: Normal bowel gas pattern. ORGANS: Unremarkable as visualized. No organomegaly. No abnormal calcifications. TUBES, LINES AND DEVICES: Intraspinal stimulator wires extending to the midthoracic level. BONES/JOINTS: Disc implants in place at L4-5 with bilateral interpedicular screw fixation. SOFT TISSUES: No acute findings. RAD/Acute Abdomen Inc Chest IMPRESSION: No acute findings in the chest, abdomen or pelvis. Electronically Signed: Tylor Jorge MD at 16:32 EST ,
--- OUTSIDE RECORDS SUMMARY | 2023-06-16 16:51 | XMS RPT_ITS | CCD ---
Author Name Unknown Address [address] [place] [address] Organization [facility] Care Team Providers Care Blueprint Assembler Name Role Phone ROSSANA BABB Unavailable Unavailable ROSASNA BABB Unavailable Unavailable NO REFERRING DR Unavailable Unavailable Chino López Unavailable Unavailable PROVIDER, UNKNOWN Unavailable Unavailable No, PCP Unavailable Unavailable HOOD VILLAVICENCIO Unavailable Unavailable ANNA JOHNNY Unavailable Unavailable Unavailable Primary Care Provider Unavailabl e PETE RODRIGUEZ Attending Unavailable PETE RODRIGUEZ Admitting Unavailable Allergies Allergy Classification Reported Allergen(s) Allergy Type Date of Onset Reaction(s) Facility (1 source) codeine; Translations: [CODEINE] Drug Allergy [facility] Repository (1 source) HYDROcodone; Translations: [HYDROCODONE] Drug Allergy [facility] Repository (1 source) traMADol; Translations: [ULTRAM] Drug Allergy [facility] Repository (2 sources) Iodine Drug Allergy 10-06-2022 [facility] Medications Current Medications Medication Drug Class(es) Dates Sig (Normalized) Sig (Original) amLODIPine 5 mg / valsartan 160 mg oral tablet (2 sources) Dihydropyridine Calcium Channel Rickie, Angiotensin 2 Receptor Rickie take 1 tablet by mouth once daily amLODIPine-valsa rtan (Exforge) 5-160 MG tablet Take 1 tablet by mouth daily. 0 Active aspirin 81 mg chewable tablet (2 sources) Platelet Aggregation Inhibitor, Nonsteroidal Anti-inflammatory Drug Start: 10-07-2022 End: 10-06-2022 aspirin chewable tablet 81 mg Completed/Discontinued Medications Medication Drug Class(es) Dates Sig (Normalized) Sig (Original) Acetaminophen (2 sources) Start: 10-06-2022 End: 10-06-2022 take 1 tablet by mouth every six hours as needed for pain and fever acetaminophen (Tylenol) tablet 650 mg amLODIPine 5 mg oral tablet (2 sources) Dihydropyridine Calcium Channel Rickie Start: 10-06-2022 End: 10-06-2022 take 5 mg by mouth once daily 5 mg, Oral, Daily, First dose on [facility] 10/06/22 at 1540 cyclobenzaprine hydrochloride 10 mg oral tablet (4 sources) Muscle Relaxant Start: 10-06-2022 End: 10-06-2022 take 5 mg by mouth twice daily as needed for muscle spasms 5 mg, Oral, 2 times daily PRN, muscle spasms, Starting on [facility] 10/06/22 at 1539 Problems Active Problems Problem Classification Problem Date Documented Date Episodic/Chronic Nonspecific chest pain (10 sources) Chest pain; Translations: [Chest pain, unspecified] Onset: 10-06-2022 Episodic Spondylosis; intervertebral disc disorders; other back problems (2 sources) Displacement of lumbar intervertebral disc without myelopathy; Translations: [LUMBAR DISC DISPLACEMENT] Onset: 10-08-2014 Chronic Past or Other Problems Problem Classification Problem Date Documented Da te Episodic/Chronic Unclassified (1 source) LUMBAR DISC DISPLACEMENT; Translations: [LUMBAR DISC DISPLACEMENT] Onset: 10-08-2014 Results Test Name Value Interpretation Reference Range Facil ity Vital Signs Date Time Vital Sign Value Performing Clinician Faci lity 10-06-2022 18:58-0400 Diastolic blood pressure 90 mm[Hg] Josh Macias MD Work Phone: [facility] 10-06-2022 18:58-0400 Heart rate 81 /min Josh Macias MD Work Phone: [facility] 10-06-2022 18:58-0400 Respiratory rate 18 /min Josh Macias MD Work Phone: [facility] 10-06-2022 18:58-0400 Systolic blood pressure 137 mm[Hg] Josh Macias MD Work Phone: [facility] 10-06-2022 15:15-0400 SaO2% (BldA) [Mass fraction] 100 % Josh Macias MD Work Phone: [facility] 10-06-2022 13:17-0400 Body temperature 98.71 [degF] Josh Macias MD Work Phone: [facility] Encounters Encounter Date Encounter Type Care Provider Facility Start: 10-06-2022 End: 10-06-2022 ambulatory PETE RODRIGUEZ [facility] Start: 10-06-2022 End: 10-06-2022 Emergency department patient visit Josh Macias MD Work Phone: [facility] EMERGENCY DEPT Procedures Date Procedure Procedure Detail Performing Clinician Start: 10-06-2022 Assay of troponin quantitative Jackie Melendezkeven [facility] Work Phone: Start: 10-06-2022 Radiologic exam ches t single view Maren Lundy [employer] Work Phone: Start: 10-06-2022 Basic metabolic pane l calcium total Maren Lundy [facility] Work Phone: Start: 10-06-2022 Ecg routine ecg w/le ast 12 lds trcg only w/o i&r Maren Lundy [facility] Work Phone: Plan of Treatment Date Care Activity Detail Author Start: 02-03-2023 Influenza vaccination Influenz a Vaccine (Season Ended) [facility] Start: 12-08-2020 COVID-19 Vaccine (3 - Booster for Pfizer series) COVID-19 Vaccine (3 - Booster for Pfizer series) [facility] Start: 2019 Zoster Vaccines (1 of 2) Zoster Vacc floyd (1 of 2) [facility] Start: 1988 DTaP/Tdap/Td Vaccine s (1 - Tdap) DTaP/Tdap/Td Vaccines (1 - Tdap) [facility] Start: 1987 Hepatitis C screening Hepatitis C Sc reening [facility] Start: 1981 Depression Screening Depression Scre ening [facility] Start: 1970 MMR Vaccines (1 of 1 - Standard series) MMR Vaccines (1 of 1 - Standard series) [facility] Start: 1969 Hepatitis B Vaccines (1 of 3 - 3-dose series) Hepatitis B Vaccines (1 of 3 - 3-dose series) [facility] Start: 1969 HIV screening HIV Screening [facility] Start: 1969 Lipid panel Lipid Panel [facility] Start: 1969 Screening for malign ant neoplasm of colon [facility] Payers Date Payer Category Payer Unknown [id number] 1970 Unknown [id number] Worker's Compensation Social History Date Type Detail [facility] Start: 1970 Sex Assigned At Not on file S [facility] Start: 09-26-2022 End: 10-06-2022 Exposure to SARS-CoV-2 (event) Not sure [facility] Emergency department Note 10-06-2022 Kelley Mitchell RN - 10/06/2022 6:52 PM EDT Note Date & Type Note Facility 10-06-2022 Emergency department Note For matting of this note might be different from the original. Pt requesting to leave AMA. Physician notified. Kelley Mitchell RN 10/06/221852 [facility] Emergency department Note 10-06-2022 Kelley Mitchell RN - 10/06/2022 6:52 PM EDTGcoreen Mitchell RN - 10/06/2022 6:11 PM EDMin Mitchell RN - 10/06/2022 5:19 PM EDTMaren Lundy APRN - PSYCH RN - 10/06/2022 1:13 PM EDT Note Date & Type Note Facility 10-06-2022 Emergency departm ent Note Pt requesting to leave AMA. Physician notified. Kelley Mitchell RN 10/06/221852 Physician paged for pain medications. Kelley Mitchell RN 10/06/221810 Meal tray delivered to pt. Family at bedside. Kelley Mitchell RN 10/06/22 1719 EMERGENCY DEPARTMENT ENCOUNTER Pt Name: Abraham Black Birthdate 1970 Date of evaluation: 10/06/2022 ED Provider: Maren Lundy APRN - [facility] EDcare was supervised by Dr. Macias who independently examined and evaluated the patient. Please see their attestation note for further details. CHIEF COMPLAINT Chief Complaint Patient presents with Chest Pain BIB [place] for non radiating chest pain x 1 day while walking up the steps at work. Pt is HTN upon arrival and states he took his HTN meds this am. EMS gave 0.4 nitroglycerin and 325 mg ASA. HISTORY OF PRESENT ILLNESS (Location/Symptom, Timing/Onset, Context/Setting, Quality, Duration, Modifying Factors, Severity) Note limiting factors. I wore appropriate PPE for the entirety of this encounter. HPI Abraham Black is a 52 y.o. male who presents to the emergency department left-sided chest pain that started while he was going up the steps at work. Patient got very short of breath and slightly nauseous with it. Patient states EMS gave him 324 mg aspirin and 1 nitro which brought his pain from a 7 down to a 4. He still having some chest discomfort at this time. Patient had a stress test years ago that was normal. Patient states his dad and brother have both had stents. Nursing Notes were reviewed. Limitations to history: None Outside historians: None REVIEW OF SYSTEMS Review of Systems Constitutional: Positive for activity change. Respiratory: Positive for shortness of breath. Cardiovascular: Positive for chest pain. Gastrointestinal: Positive for nausea. All other systems reviewed and are negative. Pertinent positives and negatives as per HPI. PAST MEDICAL HISTORY Past Medical History: Diagnosis Date CKD (chronic kidney disease) stage 2, GFR 60-89 ml/min History of lumbar fusion Hyperlipidemia Hypertension SURGICAL HISTORY No past surgical history on file. CURRENT MEDICATIONS Previous Medications AMLODIPINE-VALSARTAN (EXFORGE) 5-160 MG TABLET Take 1 tablet by mouth daily. CHOLINE FENOFIBRATE (FENOFIBRIC ACID) [address] CAPSULE Take 1 capsule by mouth daily. CYCLOBENZAPRINE (FLEXERIL) 5 MG TABLET Take 5 mg by mouth 2 times daily as needed for muscle spasms. FAMOTIDINE (PEPCID) 40 MG TABLET Take 40 mg by mouth daily. OXYCODONE ER (XTAMPZA ER) 13.5 MG 12 HR ABUSE-DETERRENT CAPSULE Take 13.5 mg by mouth 2 times daily. Must be taken with food. Do not chew or crush PRAVASTATIN (PRAVACHOL) 80 MG TABLET Take 80 mg by mouth Nightly. VALACYCLOVIR (VALTREX) 500 MG TABLET Take 500 mg by mouth daily. ALLERGIES Iodine FAMILY HISTORY No family history on file. SOCIAL HISTORY Social History Socioeconomic History Marital status: SCREENINGS HEART Score History: Moderately suspicious ECG: Non-specific repolarization disturbance Age: 45-64 Risk Factors: >2 risk factors or hx of atherosclerotic disease Troponin: Less than or equal to normal limit HEART Score: 5 PHYSICAL EXAM ED Triage Vitals [10/06/22 1317] Temp Heart Rate Resp BP 37.1 C (98.7 F) 101 18 (!) 154/100 SpO2 Temp Source Heart Rate Source Patient Position 100 % Oral Monitor -- BP Location FiO2 (%) -- -- Physical Exam Vitals reviewed. Constitutional: General: He is not in acute distress. Appearance: He is well-developed. He is not toxic-appearing. HENT: Head: Normocephalic and atraumatic. Eyes: Extraocular Movements: Extraocular movements intact. Pupils: Pupils are equal, round, and reactive to light. Neck: Vascular: No JVD. Cardiovascular: Rate and Rhythm: Regular rhythm. Tachycardia present. Heart sounds: Normal heart sounds. No murmur heard. Pulmonary: Effort: Pulmonary effort is normal. No tachypnea, accessory muscle usage or respiratory distress. Breath sounds: Normal breath sounds. No stridor. Chest: Chest wall: No tenderness. Abdominal: General: Bowel sounds are normal. Palpations: Abdomen is soft. Musculoskeletal: General: Normal range of motion. Cervical back: Normal range of motion and neck supple. Right lower leg: No tenderness. No edema. Left lower leg: No tenderness. No edema. Lymphadenopathy: Cervical: No cervical adenopathy. Skin: General: Skin is warm and dry. Capillary Refill: Capillary refill takes less than 2 seconds. Findings: No ecchymosis or erythema. Neurological: General: No focal deficit present. Mental Status: He is alert and oriented to person, place, and time. Psychiatric: Mood and Affect: Mood normal. Behavior: Behavior normal. DIAGNOSTIC RESULTS RADIOLOGY (Per Emergency Physician): Interpretation per the Radiologist below, if available at the time of this note: XR chest 1 view Final Result No acute abnormality Report Dictated on Electronically Signed By: Aneudy Pena Electronically Signed Date/Time: 10/06/2022 2:45 PM EDT LABS: Labs Reviewed BASIC METABOLIC PANEL - Abnormal Result Value SODIUM 142 POTASSIUM 4.6 CHLORIDE 108 (*) CARBON DIOXIDE 22 UREA NITROGEN 14 CREATININE 1.31 (*) GLUCOSE 87 CALCIUM 10.3 ANION GAP 11 eGFR 65.1 HEPATIC FUNCTION PANEL - Abnormal BILIRUBIN, TOTAL 0.4 BILIRUBIN, DIRECT 0.0 ALKALINE PHOSPHATASE 67 AST (SGOT) 36 ALT 50 (*) ALBUMIN 4.8 TOTAL PROTEIN 8.3 (*) CBC WITH AUTO DIFFERENTIAL - Abnormal Auto WBC 11.0 (*) RBC 5.14 Hemoglobin 15.5 Hematocrit 47.5 MCV 92.3 MCH 30.1 MCHC 32.6 RDW 13.3 Platelets 314 MPV 7.3 (*) nRBC 0.0 Neutrophils Relative 68.7 Lymphocytes Relative 22.6 Monocytes Relative 6.4 Eosinophils Relative 1.4 Basophils Relative 0.9 Neutrophils Absolute 7.6 (*) Lymphocytes Absolute 2.5 Monocytes Absolute 0.7 Eosinophils Absolute 0.1 Basophils Absolute 0.1 TROPONIN I - Normal TROPONIN I <0.012 Narrative: Patients with high levels of Biotin oral intake (ie >5 mg/day) may have falsely decreased Troponin levels. TROPONIN I All other labs were within normal range or not returned as of this dictation. EMERGENCY DEPARTMENT COURSE and DIFFERENTIAL DIAGNOSIS/MDM: Vitals: Vitals: 10/06/22 1317 10/06/22 1515 BP: (!) 154/100 (!) 129/94 Pulse: 101 82 Resp: 18 19 Temp: 37.1 C (98.7 F) TempSrc: Oral SpO2: 100% 100% Medications nitroglycerin (Nitrostat) SL tablet 0.4 mg (0.4 mg SubLINGual Given 10/06/22 1344) acetaminophen (Tylenol) tablet 650 mg (has no administration in time range) Or acetaminophen (Tylenol) suppository 650 mg (has no administration in time range) ondansetron ODT (Zofran-ODT) disintegrating tablet 4 mg (has no administration in time range) Or ondansetron (Zofran) injection 4 mg (has no administration in time range) polyethylene glycol (PEG) 3350 (Miralax) packet 17 g (has no administration in time range) enoxaparin (Lovenox) syringe 40 mg (has no administration in time range) aspirin chewable tablet 81 mg (has no administration in time range) MDM elements: The patient presented with chief complaint of chest pain. Blood work, chest x-ray, EKG obtained. Patient was already given aspirin via squad and 1 dose of nitro, second 2 doses of nitro were given to the patient. Patient's pain has improved. Blood work notes chronic kidney disease with creatinine of 1.31 which is comparable to his previous. Hepatic unremarkable. Troponin normal. CXR unremarkable.heart score is moderate risk at a 5. I have spoke with CDU for observation stay for cardiac evaluation and stress test. 1518- CDU nurse practitioner went in to complete initial intake of patient and patient is now refusing to stay. Patient states he doesn't want to stay overnight. I discussed risk factors with patient and possibility of him having an [place] Patient states understanding and will still sign out against medical advice. 1526. - patient has now changed his mind and is agreeable for admission . The differential diagnosis associated with this patient's presentation includes ACS, pleurisy, musculoskeletal, anxiety, reflux. Our workup consisted of ordering/reviewing: CBC, BMP, hepatic panel, troponin, EKG, chest x-ray, nitro sublingual. The patient will be Admitted. Patient is in agreement with this plan. PROCEDURES: Unless otherwise noted below, none Procedures CRITICAL CARE TIME None FINAL IMPRESSION 1. Chest pain, unspecified type DISPOSITION Observation 10/06/2022 03:27:04 PM PATIENT REFERRED TO: No follow-up provider specified. DISCHARGE MEDICATIONS: New Prescriptions No medications on file (Comment: Please note this report has been produced using speech recognition software and may contain errors related to that system including errors in grammar, punctuation, and spelling, as well as words and phrases that may be inappropriate. If there are any questions or concerns please feel free to contact the dictating provider for clarification.) Maren N Kamron, EDGE STAINER - PSYCH RN (electronically signed) Emergency Medicine Provider Maren Lundy APRN - PSYCH RN 10/06/22 1327 Maren Lundy APRN - PSYCH RN 10/06/22 1432 Maren Lundy APRN - PSYCH RN 10/06/22 1522 Maren Lundy APRN - PSYCH RN 10/06/22 1527 Emergency Department Encounter [facility] EMERGENCY DEPT Patient: Abraham Black : 1970 Date of Evaluation: 10/06/2022 ED Supervising Physician: JOSH MACIAS MD I independently examined and evaluated Abraham Black. I wore a KN95 mask and gloves for the entirety of this encounter. In brief, Abraham Black is a 52 y.o. male that presents to the emergency department for evaluation of chest pain. Patient had a onset of chest pain with tightness and pressure with shortness of breath. Denies any abdominal pain back pain. Improved with nitroglycerin. Denies any sharp pain whenever taking a deep breath just has tightness sensation whenever he takes a deep breath. Denies leg swelling or calf pain. Focused exam: General appearance: Well-appearing, no acute distress. Psych: Awake alert and oriented 3. Pleasant and cooperative. Skin: Warm and dry. Neck: Supple. Cardiovascular: Regular rate and rhythm. Lungs: Clear to auscultation bilaterally, no accessory muscle use, tachypnea, or retractions. Abdomen: Soft, nontender, and nondistended, no rebound, rigidity, or guarding, positive bowel sounds 4 quadrants. Extremities: Warm and well perfused. NROM and SILT throughout upper and lower extermities. No edema clubbing sinus or calf tenderness Brief ED course/MDM: Patient presents emergency department for evaluation of chest pain improved with nitro and then resolved with nitro here in the emergency department. EKG interpreted by me no acute ischemic changes Chest x-ray interpreted by me no acute process. EMERGENCY DEPARTMENT COURSE and DIFFERENTIAL DIAGNOSIS/MDM: Vitals: Vitals: 10/06/22 1317 10/06/22 1515 BP: (!) 154/100 (!) 129/94 Pulse: 101 82 Resp: 18 19 Temp: 37.1 C (98.7 F) TempSrc: Oral SpO2: 100% 100% All diagnostic, treatment, and disposition decisions were made by myself in conjunction with the KATIE/Resident. I also supervised hilton portions of any procedures performed by the KATIE/Resident. For all further details of the patient's emergency department visit, please see their documentation. This will serve as my supervisory note and shared attestation. I did perform a substantiative portion of the visit including all aspects of the medical decision making. (Please note that portions of this note may have been completed with a voice recognition program. Efforts were made to edit the dictations but occasionally words are mis-transcribed.) JOSH MACIAS MD Acute Care [facility] Josh Macias MD 10/06/22 1647 Bed: 26 Expected date: Expected time: Means of arrival: Comments: EMS Sindy Dukes RN 10/06/22 1316 documented in this encounter [facility] Emergency department Note 10-06-2022 Kelley Mitchell RN - 10/06/2022 6:11 PM EDT Note Date & Type Note Facility 10-06-2022 Emergency department Note For matting of this note might be different from the original. Physician paged for pain medications. Kelley Mitchell RN 10/06/22 1811 [facility] Clinical Note 10-06-2022 Note Date & Type Note Facility 10-06-2022 Note CDU History and Phys ical Admit Date: 10/06/2022 PCP: No primary care provider on file. CHIEF COMPLAINT: chest pain and shortness of breath Limitations to history: None Outside historians: None HISTORY OF PRESENT ILLNESS: Abraham is a 52 y.o. male with past medical history below who presents with chest pain and shortness of breath. Patient states he was at work around 11:00 today when he experienced midsternal chest pain and shortness of breath after climbing 3 flights of stairs. Associated symptoms along with the shortness of breath was diaphoresis. Denies radiation. Denies nausea, vomiting, lightheadedness, dizziness. Patient states he went back to work but the pain significantly became worse. EMS was called and patient was given two baby aspirin and nitro spray was given underneath his tongue. Patient was transported to the ED for evaluation, and was admitted to the CDU for observation. Patient was seen and evaluated in the ED at bedside. Patient denies any history of chest pain, personal history of CAD. States his brother had stents at 35 years of age. Denies tobacco use, excessive alcohol use, recreational drug use. Patient does have a history of L4-L5 fusion he does currently see pain management. REVIEW OF SYSTEMS A focused review of systems was performed and is negative except as stated in above HPI. Past Medical & Social History Past Medical History: Diagnosis Date CKD (chronic kidney disease) stage 2, GFR 60-89 ml/min History of lumbar fusion Hyperlipidemia Hypertension No past surgical history on file. No family history on file. Social History Socioeconomic History Marital status: Spouse name: Not on file Number of children: Not on file Years of education: Not on file Highest education level: Not on file Occupational History Not on file Tobacco Use Smoking status: Not on file Smokeless tobacco: Not on file Substance and Sexual Activity Alcohol use: Not on file Drug use: Not on file Sexual activity: Not on file Other Topics Concern Not on file Social History Narrative Not on file Social Determinants of Health Financial Resource Strain: Not on file Food Insecurity: Not on file Transportation Needs: Not on file Physical Activity: Not on file Stress: Not on file Social Connections: Not on file Intimate Partner Violence: Not on file Housing Stability: Not on file Current Facility-Administered Medications Medication Dose Route Frequency Provider Last Rate Last Admin acetaminophen (Tylenol) tablet 650 mg 650 mg Oral q6h PRN Jackie Melendezs [employer]ER - [facility] Or acetaminophen (Tylenol) suppository 650 mg 650 mg Rectal q6h PRN Jackie Melendezs, EDGE STAINER - PSYCH RN amLODIPine (Norvasc) tablet 5 mg 5 mg Oral Daily Jackie Traore APRN - [facility] [START ON 10/07/2022] aspirin chewable tablet 81 mg 81 mg Oral Daily Jackie Traore [employer]ER - [facility] cyclobenzaprine (Flexeril) tablet 5 mg 5 mg Oral BID PRN Jackie Traore, ED[employer] ST[employer]ER - [facility] enoxaparin (Lovenox) syringe 40 mg 40 mg SubCUTAneous Daily Jackie Traore, ED[employer] ST[employer]ER - [facility] famotidine (Pepcid) tablet 40 mg 40 mg Oral Daily Jackie Traore, EDGE ST[employer]ER - [facility] fenofibrate (Triglide) tablet 160 mg 160 mg Oral Daily Jackie Traore, DIMAS - [facility] nitroglycerin (Nitrostat) SL tablet 0.4 mg 0.4 mg SubLINGual q5 min PRN Maren Lundy APRN - PSYCH RN 0.4 mg at 10/06/22 1344 ondansetron ODT (Zofran-ODT) disintegrating tablet 4 mg 4 mg Oral q8h PRN DIMAS Olson CNP Or ondansetron (Zofran) injection 4 mg 4 mg IntraVENous q6h PRN Jackie Traore, EDGE STAINER - [facility] polyethylene glycol (PEG) 3350 (Miralax) packet 17 g 17 g Oral Daily PRN Jackie Traore, ED[employer] ST[employer]ER - [facility] pravastatin (Pravachol) tablet 80 mg 80 mg Oral Nightly Jackie Traore, ED[employer] ST[employer]ER - [facility] valACYclovir (Valtrex) tablet 500 mg 500 mg Oral Daily Jackie Traore, EDGE ST[employer]ER - [facility] valsartan (Diovan) tablet 160 mg 160 mg Oral Daily Jackie Traore, EDGE ST[employer]ER - [facility] Current Outpatient Medications Medication Sig Dispense Refill amLODIPine-valsartan (Exforge) 5-160 MG tablet Take 1 tablet by mouth daily. Choline Fenofibrate (fenofibric acid) [address] capsule Take 1 capsule by mouth daily. cyclobenzaprine (Flexeril) 5 MG tablet Take 5 mg by mouth 2 times daily as needed for muscle spasms. famotidine (Pepcid) 40 MG tablet Take 40 mg by mouth daily. oxyCODONE ER (Xtampza ER) 13.5 MG 12 hr abuse-deterrent capsule Take 13.5 mg by mouth 2 times daily. Must be taken with food. Do not chew or crush pravastatin (Pravachol) 80 MG tablet Take 80 mg by mouth Nightly. valACYclovir (Valtrex) 500 MG tablet Take 500 mg by mouth daily. Allergies Allergen Reactions Iodine Swelling PHYSICAL EXAM VITAL SIGNS: BP (!) 129/94 Pulse 82 Temp 37.1 ?C (98.7 ?F) (Oral) Resp 19 SpO2 100% Pulse Ox: SpO2 Av % Min: 100 % Max: 100 % Supplemental O2: Physical Exam General: Vitals noted. NAD, nontoxic, afebrile. HEENT: Normocephalic, atraumatic, scle (more content not included)... [facility] department Note 10-06-2022 Kelley Mitchell RN - 10/06/2022 5:19 PM EDT Note Date & Type Note Facility 10-06-2022 Emergency department Note For matting of this note might be different from the original. Meal tray delivered to pt. Family at bedside. Kelley Mitchell RN 10/06/22 [id number] [facility] Emergency department Note 10-06-2022 Sindy Dukes RN - 10/06/2022 1:13 PM EDT Note Date & Type Note Facility 10-06-2022 Emergency department Note For matting of this note might be different from the original. Bed: 26 Expected date: Expected time: Means of arrival: Comments: EMS Sindy Dukes RN 10/06/22 1316 [facility] Physician Emergency department Note 10-06-2022 DIMAS Oliva CNP - 10/06/2022 1:13 PM EDT Note Date & Type Note Facility 10-06-2022 Physician Emergen cy department Note EMERGENCY DEPARTMENT ENCOUNTER Pt Name: Abraham Black Birthdate 1970 Date of evaluation: 10/06/2022 ED Provider: DIMAS Oliva CNP EDcare was supervised by Dr. Macias who independently examined and evaluated the patient. Please see their attestation note for further details. CHIEF COMPLAINT Chief Complaint Patient presents with Chest Pain BIB [place] for non radiating chest pain x 1 day while walking up the steps at work. Pt is HTN upon arrival and states he took his HTN meds this am. EMS gave 0.4 nitroglycerin and 325 mg ASA. HISTORY OF PRESENT ILLNESS (Location/Symptom, Timing/Onset, Context/Setting, Quality, Duration, Modifying Factors, Severity) Note limiting factors. I wore appropriate PPE for the entirety of this encounter. HPI Abraham Black is a 52 y.o. male who presents to the emergency department left-sided chest pain that started while he was going up the steps at work. Patient got very short of breath and slightly nauseous with it. Patient states EMS gave him 324 mg aspirin and 1 nitro which brought his pain from a 7 down to a 4. He still having some chest discomfort at this time. Patient had a stress test years ago that was normal. Patient states his dad and brother have both had stents. Nursing Notes were reviewed. Limitations to history: None Outside historians: None REVIEW OF SYSTEMS Review of Systems Constitutional: Positive for activity change. Respiratory: Positive for shortness of breath. Cardiovascular: Positive for chest pain. Gastrointestinal: Positive for nausea. All other systems reviewed and are negative. Pertinent positives and negatives as per HPI. PAST MEDICAL HISTORY Past Medical History: Diagnosis Date CKD (chronic kidney disease) stage 2, GFR 60-89 ml/min History of lumbar fusion Hyperlipidemia Hypertension SURGICAL HISTORY No past surgical history on file. CURRENT MEDICATIONS Previous Medications AMLODIPINE-VALSARTAN (EXFORGE) 5-160 MG TABLET Take 1 tablet by mouth daily. CHOLINE FENOFIBRATE (FENOFIBRIC ACID) [address] CAPSULE Take 1 capsule by mouth daily. CYCLOBENZAPRINE (FLEXERIL) 5 MG TABLET Take 5 mg by mouth 2 times daily as needed for muscle spasms. FAMOTIDINE (PEPCID) 40 MG TABLET Take 40 mg by mouth daily. OXYCODONE ER (XTAMPZA ER) 13.5 MG 12 HR ABUSE-DETERRENT CAPSULE Take 13.5 mg by mouth 2 times daily. Must be taken with food. Do not chew or crush PRAVASTATIN (PRAVACHOL) 80 MG TABLET Take 80 mg by mouth Nightly. VALACYCLOVIR (VALTREX) 500 MG TABLET Take 500 mg by mouth daily. ALLERGIES Iodine FAMILY HISTORY No family history on file. SOCIAL HISTORY Social History Socioeconomic History Marital status: SCREENINGS HEART Score History: Moderately suspicious ECG: Non-specific repolarization disturbance Age: 45-64 Risk Factors: >2 risk factors or hx of atherosclerotic disease Troponin: Less than or equal to normal limit HEART Score: 5 PHYSICAL EXAM ED Triage Vitals [10/06/22 1317] Temp Heart Rate Resp BP 37.1 C (98.7 F) 101 18 (!) 154/100 SpO2 Temp Source Heart Rate Source Patient Position 100 % Oral Monitor -- BP Location FiO2 (%) -- -- Physical Exam Vitals reviewed. Constitutional: General: He is not in acute distress. Appearance: He is well-developed. He is not toxic-appearing. HENT: Head: Normocephalic and atraumatic. Eyes: Extraocular Movements: Extraocular movements intact. Pupils: Pupils are equal, round, and reactive to light. Neck: Vascular: No JVD. Cardiovascular: Rate and Rhythm: Regular rhythm. Tachycardia present. Heart sounds: Normal heart sounds. No murmur heard. Pulmonary: Effort: Pulmonary effort is normal. No tachypnea, accessory muscle usage or respiratory distress. Breath sounds: Normal breath sounds. No stridor. Chest: Chest wall: No tenderness. Abdominal: General: Bowel sounds are normal. Palpations: Abdomen is soft. Musculoskeletal: General: Normal range of motion. Cervical back: Normal range of motion and neck supple. Right lower leg: No tenderness. No edema. Left lower leg: No tenderness. No edema. Lymphadenopathy: Cervical: No cervical adenopathy. Skin: General: Skin is warm and dry. Capillary Refill: Capillary refill takes less than 2 seconds. Findings: No ecchymosis or erythema. Neurological: General: No focal deficit present. Mental Status: He is alert and oriented to person, place, and time. Psychiatric: Mood and Affect: Mood normal. Behavior: Behavior normal. DIAGNOSTIC RESULTS RADIOLOGY (Per Emergency Physician): Interpretation per the Radiologist below, if available at the time of this note: XR chest 1 view Final Result No acute abnormality Report Dictated on Electronically Signed By: Aneudy Pena Electronically Signed Date/Time: 10/06/2022 2:45 PM EDT LABS: Labs Reviewed BASIC METABOLIC PANEL - Abnormal Result Value SODIUM 142 POTASSIUM 4.6 CHLORIDE 108 (*) CARBON DIOXIDE 22 UREA NITROGEN 14 CREATININE 1.31 (*) GLUCOSE 87 CALCIUM 10.3 ANION GAP 11 eGFR 65.1 HEPATIC FUNCTION PANEL - Abnormal BILIRUBIN, TOTAL 0.4 BILIRUBIN, DIRECT 0.0 ALKALINE PHOSPHATASE 67 AST (SGOT) 36 ALT 50 (*) ALBUMIN 4.8 TOTAL PROTEIN 8.3 (*) CBC WITH AUTO DIFFERENTIAL - Abnormal Auto WBC 11.0 (*) RBC 5.14 Hemoglobin 15.5 Hematocrit 47.5 MCV 92.3 MCH 30.1 MCHC 32.6 RDW 13.3 Platelets 314 MPV 7.3 (*) nRBC 0.0 Neutrophils Relative 68.7 Lymphocytes Relative 22.6 Monocytes Relative 6.4 Eosinophils Relative 1.4 Basophils Relative 0.9 Neutrophils Absolute 7.6 (*) Lymphocytes Absolute 2.5 Monocytes Absolute 0.7 Eosinophils Absolute 0.1 Basophils Absolute 0.1 TROPONIN I - Normal TROPONIN I <0.012 Narrative: Patients with high levels of Biotin oral intake (ie >5 mg/day) may have falsely decreased Troponin levels. TROPONIN I All other labs were within normal range or not returned as of this dictation. EMERGENCY DEPARTMENT COURSE and DIFFERENTIAL DIAGNOSIS/MDM: Vitals: Vitals: 10/06/22 1317 10/06/22 1515 BP: (!) 154/100 (!) 129/94 Pulse: 101 82 Resp: 18 19 Temp: 37.1 C (98.7 F) TempSrc: Oral SpO2: 100% 100% Medications nitroglycerin (Nitrostat) SL tablet 0.4 mg (0.4 mg SubLINGual Given 10/06/22 1344) acetaminophen (Tylenol) tablet 650 mg (has no administration in time range) Or acetaminophen (Tylenol) suppository 650 mg (has no administration in time range) ondansetron ODT (Zofran-ODT) disintegrating tablet 4 mg (has no administration in time range) Or ondansetron (Zofran) injection 4 mg (has no administration in time range) polyethylene glycol (PEG) 3350 (Miralax) packet 17 g (has no administration in time range) enoxaparin (Lovenox) syringe 40 mg (has no administration in time range) aspirin chewable tablet 81 mg (has no administration in time range) MDM elements: The patient presented with chief complaint of chest pain. Blood work, chest x-ray, EKG obtained. Patient was already given aspirin via squad and 1 dose of nitro, second 2 doses of nitro were given to the patient. Patient's pain has improved. Blood work notes chronic kidney disease with creatinine of 1.31 which is comparable to his previous. Hepatic unremarkable. Troponin normal. CXR unremarkable.heart score is moderate risk at a 5. I have spoke with [facility] for observation stay for cardiac evaluation and stress test. 1518- [facility] nurse practitioner went in to complete initial intake of patient and patient is now refusing to stay. Patient states he doesn't want to stay overnight. I discussed risk factors with patient and possibility of him having an [place] Patient states understanding and will still sign out against medical advice. 1526. - patient has now changed his mind and is agreeable for admission . The differential diagnosis associated with this patient's presentation includes ACS, pleurisy, musculoskeletal, anxiety, reflux. Our workup consisted of ordering/reviewing: CBC, BMP, hepatic panel, troponin, EKG, chest x-ray, nitro sublingual. The patient will be Admitted. Patient is in agreement with this plan. PROCEDURES: Unless otherwise noted below, none Procedures CRITICAL CARE TIME None FINAL IMPRESSION 1. Chest pain, unspecified type DISPOSITION Observation 10/06/2022 03:27:04 PM PATIENT REFERRED TO: No follow-up provider specified. DISCHARGE MEDICATIONS: New Prescriptions No medications on file (Comment: Please note this report has been produced using speech recognition software and may contain errors related to that system including errors in grammar, punctuation, and spelling, as well as words and phrases that may be inappropriate. If there are any questions or concerns please feel free to contact the dictating provider for clarification.) DIMAS Oliva CNP (electronically signed) Emergency Medicine Provider DIMAS Oliva CNP 10/06/22 1327 DIMAS Oliva CNP 10/06/22 1432 DIMAS Oliva CNP 10/06/22 1522 DIMAS Oliva CNP 10/06/22 1527 [facility] Physician Emergency department Note 10-06-2022 Josh Macias MD - 10/06/2022 1:13 PM EDT Note Date & Type Note Facility 10-06-2022 Physician Emergency department Note Emergency Department Encounter [facility] EMERGENCY DEPT Patient: Abraham Black : 1970 Date of Evaluation: 10/06/2022 ED Supervising Physician: JOSH MACIAS MD I independently examined and evaluated Abraham Black. I wore a KN95 mask and gloves for the entirety of this encounter. In brief, Abraham Black is a 52 y.o. male that presents to the emergency department for evaluation of chest pain. Patient had a onset of chest pain with tightness and pressure with shortness of breath. Denies any abdominal pain back pain. Improved with nitroglycerin. Denies any sharp pain whenever taking a deep breath just has tightness sensation whenever he takes a deep breath. Denies leg swelling or calf pain. Focused exam: General appearance: Well-appearing, no acute distress. Psych: Awake alert and oriented 3. Pleasant and cooperative. Skin: Warm and dry. Neck: Supple. Cardiovascular: Regular rate and rhythm. Lungs: Clear to auscultation bilaterally, no accessory muscle use, tachypnea, or retractions. Abdomen: Soft, nontender, and nondistended, no rebound, rigidity, or guarding, positive bowel sounds 4 quadrants. Extremities: Warm and well perfused. NROM and SILT throughout upper and lower extermities. No edema clubbing sinus or calf tenderness Brief ED course/MDM: Patient presents emergency department for evaluation of chest pain improved with nitro and then resolved with nitro here in the emergency department. EKG interpreted by me no acute ischemic changes Chest x-ray interpreted by me no acute process. EMERGENCY DEPARTMENT COURSE and DIFFERENTIAL DIAGNOSIS/MDM: Vitals: Vitals: 10/06/22 1317 10/06/22 1515 BP: (!) 154/100 (!) 129/94 Pulse: 101 82 Resp: 18 19 Temp: 37.1 C (98.7 F) TempSrc: Oral SpO2: 100% 100% All diagnostic, treatment, and disposition decisions were made by myself in conjunction with the KATIE/Resident. I also supervised hilton portions of any procedures performed by the KATIE/Resident. For all further details of the patient's emergency department visit, please see their documentation. This will serve as my supervisory note and shared attestation. I did perform a substantiative portion of the visit including all aspects of the medical decision making. (Please note that portions of this note may have been completed with a voice recognition program. Efforts were made to edit the dictations but occasionally words are mis-transcribed.) JOSH MACIAS MD [facility] Josh Macias MD 10/06/22 1647 [employer] Work Phone: Progress note 06-23-2021 Note Date & Type Note Facility 06-23-2021 Note HNO ID: [id number] Author: Lane Kelly, PhD Service: ? Author Type: Psychologist Type: Progress Notes Filed: 06/23/2021 11:01 AM Note Text: [facility] Progress Note Abraham Black 06/23/2021 [id number] Provider: Lane Kelly, PhD CPT Code: 45289 Psychiatric diagnostic evaluation Time: Approximately 50 minutes was spent in therapy. Parties Present: Patient Patient Presentation/Concerns: INITIAL VISIT re SPINAL CORD STIMULATOR I have seen Mr. Black today regarding a Spinal Cord Stimulator. He has had back surgery, Physical Therapy, shots, medications. His level of pain and discomfort currently is periodically overwhelming. He is aware of the most likely outcome of having a Spinal Cord Stimulator, and that he will have a trial period to see if it is helpful enough. He also has a good support system. In my professional opinion, I believe that this patient is a good candidate for this procedure. Pt was youngest of 5.... 10 yrs at current job... with 5 grown children would like to get off of meds and have pain better controlled... Work is against CBD let alone medical cannabis Mental Status: Mood: variable Affect: mood-congruent Thoughts/Associations:goal directed Suicidal/Homicidal Ideation: None expressed or evidenced Other Observations: None Therapy Focus Self-care, Stress management, Mood/affect regulation and Coping with chronic illness MEDICATIONS: Per medical record: Current Outpatient Medications Medication Sig - oxybutynin ER (DITROPAN XL) 10 mg 24 hr tablet Take 1 tablet by mouth daily at bedtime. - amLODIPine-Valsartan 5-160 mg per tablet Take 1 tablet by mouth once daily. - pravastatin (PRAVACHOL) 80 mg tablet Take 80 mg by mouth once daily. - fenofibrate (LOFIBRA) 134 mg capsule Take 134 mg by mouth daily with breakfast. - simvastatin(ZOCOR 40 MG TAB) Take one(1) tablet daily at bedtime. - valacyclovir hcl(VALTREX 500 MG TAB) Take one(1) tablet daily. - MINOCYCLINE 100 MG CAP Take one capsule po qd with food and can increase up to bid as directed for major flares of acne for up to 1-2wks prn, as tolerated; can taper slowly as able if acne has been clear and stable for multiple months on tx. - benzoyl peroxide(BENZAC AC WASH 10 % TOPICAL CLEANSER) Cleanse affected acne areas of face, neck, back, chest, shoulders, upper arms, qday to bid as tolerated and directed. Use with caution on face and other areas if getting too dry or irritated. - adapalene(DIFFERIN 0.3 % TOPICAL GEL) Apply to entire acne areas of face, neck(optional) , chest (optional), shoulders to upper arms, and back(optional) qoday up to qday as tolerated. - clindamycin/benzoyl prx/skn #5(DUAC CS 1 %-5 % TOPICAL KIT) Apply to acne areas of face (optional chest and back, shoulder and neck acne areas in evening: beware of bleaching clothing) qoday to qday as tolerated and can do selective spot treatment of flaring acne lesions additionally qday to bid prn as tolerated/directed. No current facility-administered medications for this visit. Psychiatric Medication Issues: see med record DIAGNOSIS: [place] I: Chronic Pain [place] II: deferred [place] III: see med record [place] IV: pain [place] V: 50-55 Treatment Modality/Interventions: Cognitive Behavioral Reassurance/Supportive Psychoeducation TREATMENT ASSESSMENT/PROGRESS: . Progressing satisfactorily. TREATMENT PLAN/GOALS: Continue in therapy focusing on self-care, stress management, affect management and coping with pain. Next appointment: None scheduled. Pt nolan call if issues arise. Lane Kelly, PhD [facility] Evaluation note Note Date & Type Note Facility documented in this encounter [facility] Summary Purpose Family History No Family History Records FoundNo Family History Records FoundNo Family History Records FoundNo Family History Records FoundNo Family History Records FoundNo Family History Records Found Advance Directives No Advanced Directives Records FoundLatest Code Status on File Code Status Date Activated Date Inactivated Comments Full Code 10/06/2022 2:49 PM 10/06/2022 9:04 PM Additional Source Comments (unrecognized sect ion and content) No Status Records FoundNo Status Records FoundNo Status Records FoundNo Status Records FoundNo Status Records FoundNo Status Records Found INFORMATION SOURCE (unrecogn ized section and content) DATE CREATED AUTHOR AUTHOR'S ORGANIZ ATION 12/21/2017 [facility] DATE CREATED AUTHOR AUTHOR'S ORGANIZ ATION 05/14/2018 [facility] ([place]) DATE CREATED AUTHOR AUTHOR'S ORGANIZ ATION 12/27/2019 [facility] DATE CREATED AUTHOR AUTHOR'S ORGANIZ ATION 07/28/2021 [facility] DATE CREATED AUTHOR AUTHOR'S ORGANIZ ATION 11/13/2022 [facility] Reason for Visit (unrecogniz ed section and content) Scheduled Active and Recently Administ ered Medications (unrecognized section and content) PRN Medication Order 10/04/2022 10/05/2022 10/06/2022 acetaminophen (Tylenol) suppository 650 mg(Linked Group 1) 650 mg, Rectal, Every 6 hours PRN, mild pain (1-3), fever, For temp greater than 100.4 F (38 C), Starting on Giovana 10/06/22 at 1446, Administer if oral route cannot be used. Maximum dose of acetaminophen is 4000 mg from all sources in 24 hours. acetaminophen (Tylenol) tablet 650 mg(Linked Group 1) 650 mg, Oral, Every 6 hours PRN, mild pain (1-3), fever, For temp greater than 100.4 F (38 C), Starting on Giovana 10/06/22 at 1446, Maximum dose of acetaminophen is 4000 mg from all sources in 24 hours. cyclobenzaprine (Flexeril) tablet 5 mg 5 mg, Oral, 2 times daily PRN, muscle spasms, Starting on Giovana 10/06/22 at 1539 nitroglycerin (Nitrostat) SL tablet 0.4 mg 0.4 mg, SubLINGual, Every 5 min PRN, chest pain, Starting on Giovana 10/06/22 at 1322, For 2 doses, May administer up to 2 doses per episode. 1344 (Given - Provid er: Kelley Mitchell RN) ondansetron (Zofran) injection 4 mg(Linked Group 2) 4 mg, IntraVENous, Every 6 hours PRN, nausea, vomiting, Starting on Giovana 10/06/22 at 1446, Administer if oral route cannot be used. ondansetron ODT (Zofran-ODT) disintegrating tablet 4 mg(Linked Group 2) 4 mg, Oral, Every 8 hours PRN, nausea, vomiting, Starting on Giovana 10/06/22 at 1446, Patient should allow tablet to dissolve on tongue. Do not remove from blister pack until just before administering. oxyCODONE ER (OxyCONTIN) 12 hr tablet 15 mg 15 mg, Oral, 2 times daily PRN, severe pain (7-10), Starting on Giovana 10/06/22 at 1817, Do not crush, chew, or split. polyethylene glycol (PEG) 3350 (Miralax) packet 17 g 17 g, Oral, Daily PRN, constipation, Starting on Giovana 10/06/22 at 1446, 1st line for treatment of constipation - give scheduled if no bowel movement in past 24 hours. Linked Groups Order Group 1: acetaminophen (Tylenol) tablet 650 mgJump to med 650 mg, Oral, Every 6 hours PRN, mild pain (1-3), fever, For temp greater than 100.4 F (38 C), Starting on Giovana 10/06/22 at 1446
Maximum dose of acetaminophen is 4000 mg from all sources in 24 hours.
Or acetaminophen (Tylenol) suppository 650 mgJump to med 650 mg, Rectal, Every 6 hours PRN, mild pain (1-3), fever, For temp greater than 100.4 F (38 C), Starting on Giovana 10/06/22 at 1446
Administer if oral route cannot be used. Maximum dose of acetaminophen is 4000 mg from all sources in 24 hours.
Group 2: ondansetron ODT (Zofran-ODT) disintegrating tablet 4 mgJump to med 4 mg, Oral, Every 8 hours PRN, nausea, vomiting, Starting on Giovana 10/06/22 at 1446
Patient should allow tablet to dissolve on tongue. Do not remove from blister pack until just before administering.
Or ondansetron (Zofran) injection 4 mgJump to med 4 mg, IntraVENous, Every 6 hours PRN, nausea, vomiting, Starting on Giovana 10/06/22 at 1446
Administer if oral route cannot be used.
FOR RECORDS PERTAINING TO PATIENTS WHO ARE OR HAVE BEEN ENROLLED IN A CHEMICAL DEPENDENCY/SUBSTANCEABUSE PROGRAM, SOME INFORMATION MAY BE OMITTED. This clinical summary was aggregated from multiple sources. Caution should be exercised in using it in the provision of clinical care. This summary normalizes information from multiple sources, and as a consequence, information in this document may materially change the coding, format and clinical context of patient data. In addition, data may be omitted in some cases. CLINICAL DECISIONS SHOULD BE BASED ON THE PRIMARY CLINICAL RECORDS. [facility]. provides no warranty or guarantee of the accuracy or completeness of information in this document.
[2023-06-16 17:38] LABS: Absolute Neutrophil Count 5.2 X10^3/uL (2.0-7.7); Basophil# 0.03 X10^3/uL; Basophil% 0.3 % (0-1); Eosinophil# 0.23 X10^3/uL; Eosinophils% 2.4 % (0-5); Hemoglobin 16.3 g/dL (13.0-16.5); Mean Corp Hgb Conc 32.6 g/dL (32-36); Mean Corpuscular Hgb 29.9 pg (27.0-32.0); Mean Corpuscular Volume 91.6 fL (80-94); Mean Platelet Vol. 10.9 fl (6.2-12.0); Monocyte# 0.62 X10^3/uL; Monocyte% 6.4 % (0-10); NRBC Flagged by Analyzer 0 % (0-5); Neutrophil # 5.23 X10^3/uL (2.7-7.7); Neutrophil % 53.6 % (47-70); Platelet Count 280 K/mm3 (150-450); RBC Distribution Width CV 13.2 % (11.6-14.6); RBC Distribution Width SD 44.2 fl (35.1-43.9); Red Blood Count 5.46 M/mm3 (4.6-6.2); White Blood Count 9.7 K/mm3 (4.4-11.0)
[2023-06-16 18:02] LABS: ALB/GLOB Ratio 1.2 RATIO (0.9-2.4); AST(SGOT) 31 U/L (15-37); Alanine Aminotransfer ALT/SGPT 69 U/L (16-61); Albumin, Serum 4.3 g/dL (3.2-5.0); Alkaline Phosphatase 77 U/L (45-117); Anion Gap 7 (5-15); BUN 15 mg/dL (7-18); BUN/Creat Ratio 12.4 RATIO (10-20); CRP < 2.90 mg/L (0.0-3.0); Calcium,Total 9.5 mg/dL (8.5-10.1); Chloride 112 mmol/L (98-107); Creatinine, Serum 1.21 mg/dL (0.70-1.30); EST Glomerular Filtration Rate 66 mL/min (>60); Est Glom Filt Rate - Afr Amer 80 mL/min (>60); Globulin 3.7 g/dL (2.2-4.2); Glucose 89 mg/dL (74-106); Potassium 4.1 mmol/L (3.5-5.1); Sodium Level 140 mmol/L (136-145)
== END | disposition home or self-care (01) ==
PROVIDERS: PCP Family Medicine; Referring Provider Family Medicine; Visit Provider Family Medicine
DX: R10.9 Unspecified abdominal pain (principal); R35.0 Frequency of micturition
CPT/HCPCS: 36415; 74022; 80053; 85025; 86140; 87086

== ENCOUNTER → 2023-07-07 | Outpatient (CLI) | payer BC, SELFPAY ==
[2023-07-07 15:26] LABS: Absolute Lymphocyte Count 2.01 X10^3/uL (0.83-4.51); Absolute Neutrophil Count 4.3 X10^3/uL (2.0-7.7); Basophil# 0.03 X10^3/uL; Basophil% 0.4 % (0-1); Eosinophil# 0.17 X10^3/uL; Eosinophils% 2.4 % (0-5); Hematocrit 47.2 % (40-54); Hemoglobin 15.3 g/dL (13.0-16.5); Lymphocyte # 2.01 X10^3/ul (0.83-4.51); Lymphocyte % 28.8 % (19-41); Mean Corp Hgb Conc 32.4 g/dL (32-36); Mean Corpuscular Hgb 29.3 pg (27.0-32.0); Mean Corpuscular Volume 90.2 fL (80-94); Mean Platelet Vol. 10.2 fl (6.2-12.0); Monocyte# 0.47 X10^3/uL; Monocyte% 6.7 % (0-10); NRBC Flagged by Analyzer 0 % (0-5); Neutrophil # 4.29 X10^3/uL (2.7-7.7); Neutrophil % 61.6 % (47-70); Platelet Count 301 K/mm3 (150-450); Red Blood Count 5.23 M/mm3 (4.6-6.2)
[2023-07-07 15:36] LABS: Color, Urine Yellow (Yellow); Glucose, Dipstick Normal (Normal); Ketone-Dipstick 5 mg/dl (Negative); Leukocyte Esterase-Dipstick Negative /ul (Negative); Nitrite-Dipstick Negative (Negative); Occult Blood-Urine Negative /ul (Negative); Protein-Dipstick Negative (Negative); Urine Bilirubin Dipstick Negative (Negative); Urine Clarity Clear (Clear); Urine Urobilinogen Normal (Normal)
[2023-07-07 16:00] LABS: Vitamin D,25 Hydroxy 23.4 ng/mL
[2023-07-07 16:11] LABS: ALB/GLOB Ratio 1.1 RATIO (0.9-2.4); AST(SGOT) 29 U/L (15-37); Alanine Aminotransfer ALT/SGPT 61 U/L (16-61); Albumin, Serum 3.9 g/dL (3.2-5.0); Alkaline Phosphatase 79 U/L (45-117); Anion Gap 3 (5-15); BUN 13 mg/dL (7-18); BUN/Creat Ratio 10.9 RATIO (10-20); Calcium,Total 9.2 mg/dL (8.5-10.1); Chloride 111 mmol/L (98-107); Cholesterol 193 mg/dL (200); Creatinine, Serum 1.19 mg/dL (0.70-1.30); EST Glomerular Filtration Rate 68 mL/min (>60); Est Glom Filt Rate - Afr Amer 82 mL/min (>60); Globulin 3.6 g/dL (2.2-4.2); Glucose 106 mg/dL (74-106); High Density Lipoprotein 33 mg/dL; Magnesium 2.2 mg/dL (1.6-2.6); Protein, Total 7.5 g/dL (6.4-8.2); Sodium Level 138 mmol/L (136-145); Thyroid Stim Hormone (TSH) 0.98 uIU/mL (0.358-3.74); Triglycerides 247 mg/dL; Very Low Density Lipoprotein 49 mg/dL (5-40)
--- OUTSIDE RECORDS SUMMARY | 2023-07-07 16:58 | XMS RPT_ITS | CCD ---
Author Name Unknown Address [address] [place] [address] Organization [facility] Care Team Providers Care Stock Receiver Name Role Phone ROSSANA BABB Unavailable Unavailable ROSSANA BABB Unavailable Unavailable NO REFERRING DR Unavailable Unavailable Chino López Unavailable Unavailable PROVIDER, UNKNOWN Unavailable Unavailable No, PCP Unavailable Unavailable HOOD VILLAVICENCIO Unavailable Unavailable ANNA JOHNNY Unavailable Unavailable Unavailable Primary Care Provider Unavailabl e PETE RODRIGUEZ Attending Unavailable PETE RODRIGUEZ Admitting Unavailable Allergies Allergy Classification Reported Allergen(s) Allergy Type Date of Onset Reaction(s) Facility (1 source) codeine; Translations: [CODEINE] Drug Allergy [facility] Repository (1 source) HYDROcodone; Translations: [HYDROCODONE] Drug Allergy [facility] Repository (1 source) traMADol; Translations: [ULTRAM] Drug Allergy [facility] Repository (2 sources) Iodine Drug Allergy 10-06-2022 [facility] Medications Current Medications Medication Drug Class(es) Dates [...] 5 mg, Oral, Daily, First dose on [facility] 10/06/22 at 1540 cyclobenzaprine hydrochloride 10 mg oral tablet (4 sources) Muscle Relaxant Start: 10-06-2022 End: 10-06-2022 take 5 mg by mouth twice daily as needed for muscle spasms 5 mg, Oral, 2 times daily PRN, muscle spasms, Starting on [facility] 10/06/22 at 1539 Problems Active Problems [...] 90 mm[Hg] Josh Macias MD Work Phone: [facility] [employer] 10-06-2022 18:58-0400 Heart rate 81 /min Josh Macias MD Work Phone: [facility] [employer] 10-06-2022 18:58-0400 Respiratory rate 18 /min Josh Macias MD Work Phone: [facility] [employer] 10-06-2022 18:58-0400 Systolic blood pressure 137 mm[Hg] Josh Macias MD Work Phone: [facility] [employer] 10-06-2022 15:15-0400 SaO2% (BldA) [Mass fraction] 100 % Josh Macias MD Work Phone: [facility] [employer] 10-06-2022 13:17-0400 Body temperature 98.71 [degF] Josh Macias MD Work Phone: [facility] Encounters Encounter Date Encounter Type Care Provider Facility Start: 10-06-2022 End: 10-06-2022 ambulatory PETE RODRIGUEZ [facility] Start: 10-06-2022 End: 10-06-2022 Emergency department patient visit Josh Macias MD Work Phone: [facility] Procedures Date Procedure Procedure Detail Performing Clinician Start: 10-06-2022 Assay of troponin quantitative Jackie Melendezkeven CUSTOMS APPRAISER [employer] Work Phone: Start: 10-06-2022 Radiologic exam ches t single view Maren Lundy [employer]USTOM[employer] APPRAIS[employer] Work Phone: Start: 10-06-2022 Basic metabolic pane l calcium total Maren Lundy [email or web address] Work Phone: Start: 10-06-2022 Ecg routine ecg w/le ast 12 lds trcg only w/o i&r Maren Lundy [email or web address] Work Phone: Plan of Treatment Date Care Activity Detail Author Start: 02-03-2023 Influenza vaccination Influenz a Vaccine (Season Ended) [facility] Start: 12-08-2020 COVID-19 Vaccine (3 - Booster for Pfizer series) COVID-19 Vaccine (3 - Booster for Pfizer series) [facility] Start: 2019 Zoster Vaccines (1 of 2) Zoster Vacc floyd (1 of 2) [facility] Start: 1988 DTaP/Tdap/Td Vaccine s (1 - Tdap) DTaP/Tdap/Td Vaccines (1 - Tdap) [facility] Start: 1987 Hepatitis C screening Hepatitis C Sc reening [facility] Start: 1981 Depression Screening Depression Scre ening [facility] Start: 1970 MMR Vaccines (1 of 1 - Standard series) MMR Vaccines (1 of 1 - Standard series) [facility] Start: 1969 Hepatitis B Vaccines (1 of 3 - 3-dose series) Hepatitis B Vaccines (1 of 3 - 3-dose series) [facility] Start: 1969 HIV screening HIV Screening [facility] Start: 1969 Lipid panel Lipid Panel [facility] Start: 1969 Screening for malign ant neoplasm of colon [facility] Payers Date Payer Category Payer Unknown [id number] 1970 Unknown [id number] Worker's Compensation Social History Date Type Detail Facility [facility] Start: 1970 Sex Assigned At Not on file [facility] Start: 09-26-2022 End: 10-06-2022 Exposure to SARS-CoV-2 (event) Not sure [facility] Emergency department Note 10-06-2022 Kelley Mitchell RN - 10/06/2022 6:52 PM EDT Note Date & Type Note Facility 10-06-2022 Emergency department Note For matting of this note might be different from the original. Pt requesting to leave AMA. Physician notified. Kelley Mitchell RN 10/06/221852 [facility] Emergency department Note 10-06-2022 Kelley Mitchell RN - 10/06/2022 6:52 PM EDTGcoreen Mitchell RN - 10/06/2022 6:11 PM EDMin Mitchell RN - 10/06/2022 5:19 PM EDTMaren Lundy APRN - COATING MIXER SUPERVISOR - 10/06/2022 1:13 PM EDT Note Date [...] Complaint Patient presents with Chest Pain BIB [place] for non radiating chest pain x 1 [...] patient and possibility of him having an AK Patient states understanding and will still sign [...] dictating provider for clarification.) Maren N Kamron, CUSTOMS APPRAISER - COATING MIXER SUPERVISOR (electronically signed) Emergency Medicine Provider Maren Lundy APRN - COATING MIXER SUPERVISOR 10/06/22 1327 Maren Lundy APRN - COATING MIXER SUPERVISOR 10/06/22 1432 Maren Lundy APRN - COATING MIXER SUPERVISOR 10/06/22 1522 Maren Lundy APRN - COATING MIXER SUPERVISOR 10/06/22 1527 Emergency Department Encounter [facility] EMERGENCY DEPT Patient: Abraham Black : 1970 Date of Evaluation: 10/06/2022 ED Supervising Physician: JOSH MACIAS MD I independently examined and evaluated Abraham Black. I wore a [id number] mask and gloves for the entirety of this encounter. In brief, Abrhaam Black is a 52 y.o. male that [...] are mis-transcribed.) JOSH MACIAS MD Acute Care [facility] Josh Macias MD 10/06/22 1647 Bed: 26 Expected date: Expected time: Means of arrival: Comments: EMS Sindy Dukes RN 10/06/22 1316 documented in this encounter [facility] Emergency department Note 10-06-2022 Kelley Mitchell RN - 10/06/2022 6:11 PM EDT Note Date & Type Note Facility 10-06-2022 Emergency department Note For matting of this note might be different from the original. Physician paged for pain medications. Kelley Mitchell RN 10/06/22 1811 [facility] Clinical Note 10-06-2022 Note Date & Type [...] 650 mg Oral q6h PRN Jackie Melendezs CUSTOMS APPRAISER - MARIANNE Or acetaminophen (Tylenol) suppository 650 mg 650 mg Rectal q6h PRN Jackie Melendezs, CUSTOMS APPRAISER - COATING MIXER SUPERVISOR amLODIPine (Norvasc) tablet 5 mg 5 mg Oral Daily Jackie Traore APRN - MARIANNE [START ON 10/07/2022] aspirin chewable tablet 81 mg 81 mg Oral Daily Jackie Traore CUSTOMS APPRAISER - MARIANNE cyclobenzaprine (Flexeril) tablet 5 mg 5 mg Oral BID PRN Jackie Traore, CUSTOMS APPRAISER - MARIANNE enoxaparin (Lovenox) syringe 40 mg 40 mg SubCUTAneous Daily Jackie Traore, CUSTOMS APPRAISER - MARIANNE famotidine (Pepcid) tablet 40 mg 40 mg Oral Daily Jackie Traore, CUSTOMS APPRAISER - MARIANNE fenofibrate (Triglide) tablet 160 mg 160 mg Oral Daily Jackie Traore, DIMAS - MARIANNE nitroglycerin (Nitrostat) SL tablet 0.4 mg 0.4 mg SubLINGual q5 min PRN Maren Lundy APRN - COATING MIXER SUPERVISOR 0.4 mg at 10/06/22 1344 ondansetron ODT (Zofran-ODT) disintegrating tablet 4 mg 4 mg Oral q8h PRN DIMAS Olson CNP Or ondansetron (Zofran) injection 4 mg 4 mg IntraVENous q6h PRN Jackie Traore, CUSTOMS APPRAISER - MARIANNE polyethylene glycol (PEG) 3350 (Miralax) packet 17 g 17 g Oral Daily PRN Jackie Traore, CUSTOMS APPRAISER - MARIANNE pravastatin (Pravachol) tablet 80 mg 80 mg Oral Nightly Jackie Traore, CUSTOMS APPRAISER - MARIANNE valACYclovir (Valtrex) tablet 500 mg 500 mg Oral Daily Jackie Traore, CUSTOMS APPRAISER - MARIANNE valsartan (Diovan) tablet 160 mg 160 mg Oral Daily Jackie Traore, CUSTOMS APPRAISER - MARIANNE Current Outpatient Medications Medication Sig [...] Normocephalic, atraumatic, scle (more content not included)... [facility] Emergency department Note 10-06-2022 Kelley Mitchell RN - 10/06/2022 5:19 PM EDT Note Date & Type Note Facility 10-06-2022 Emergency department Note For matting of this note might be different from the original. Meal tray delivered to pt. Family at bedside. Kelley Mitchell RN 10/06/22 5294 [facility] Emergency department Note 10-06-2022 Sindy Dukes RN - 10/06/2022 1:13 PM EDT Note Date & Type Note Facility 10-06-2022 Emergency department Note For matting of this note might be different from the original. Bed: 26 Expected date: Expected time: Means of arrival: Comments: EMS Sindy Dukes RN 10/06/22 1316 [facility] Physician Emergency department Note 10-06-2022 DIMAS Oliva [...] Complaint Patient presents with Chest Pain BIB [place] for non radiating chest pain x 1 [...] patient and possibility of him having an AK Patient states understanding and will still sign [...] 10/06/22 1522 DIMAS Oliva CNP 10/06/22 1527 [facility] Physician Emergency department Note 10-06-2022 Josh Macias MD - 10/06/2022 1:13 PM EDT Note Date & Type Note Facility 10-06-2022 Physician Emergency department Note Emergency Department Encounter [facility] EMERGENCY DEPT Patient: Abraham Black : [...] occasionally words are mis-transcribed.) JOSH MACIAS MD [facility] Josh Macias MD 10/06/22 1647 [employer] Work Phone: Progress note 06-23-2021 Note Date & Type Note Facility 06-23-2021 Note HNO ID: [id number] Author: Lane Kelly, PhD Service: ? Author Type: Psychologist Type: Progress Notes Filed: 06/23/2021 11:01 AM Note Text: [facility] Progress Note Abraham Black 06/23/2021 [id number] Provider: Lane Kelly, PhD CPT Code: 70311 Psychiatric diagnostic evaluation Time: Approximately 50 minutes [...] Psychiatric Medication Issues: see med record DIAGNOSIS: [place] I: Chronic Pain [place] II: deferred [place] III: see med record [place] IV: pain [place] V: 50-55 Treatment Modality/Interventions: Cognitive Behavioral Reassurance/Supportive Psychoeducation TREATMENT ASSESSMENT/PROGRESS: . Progressing satisfactorily. TREATMENT PLAN/GOALS: Continue in therapy focusing on self-care, stress management, affect management and coping with pain. Next appointment: None scheduled. Pt nolan call if issues arise. Lane Kelly, PhD [facility] Evaluation note Note Date & Type Note [...] DATE CREATED AUTHOR AUTHOR'S ORGANIZ ATION 12/21/2017 [facility] DATE CREATED AUTHOR AUTHOR'S ORGANIZ ATION 05/14/2018 [facility] ([place]) DATE CREATED AUTHOR AUTHOR'S ORGANIZ ATION 12/27/2019 [facility] DATE CREATED AUTHOR AUTHOR'S ORGANIZ ATION 07/28/2021 [facility] DATE CREATED AUTHOR AUTHOR'S ORGANIZ ATION 11/13/2022 [facility] Reason for Visit (unrecogniz ed section and [...] BE BASED ON THE PRIMARY CLINICAL RECORDS. [employer] [facility]. provides no warranty or guarantee of the accuracy or completeness of information in this document.
[2023-07-11 14:38] LABS: Hemoglobin A1c 5.7 % (3.8-5.6)
== END | disposition home or self-care (01) ==
LOC: MFPLAB 13:53
PROVIDERS: PCP Family Medicine; Visit Provider Family Medicine
DX: R73.09 Other abnormal glucose (principal); I10 Essential (primary) hypertension; E55.9 Vitamin D deficiency, unspecified
CPT/HCPCS: 36415; 80053; 80061; 81002; 82306; 83036; 83735; 84443; 85025

== ENCOUNTER → 2023-07-24 | Outpatient (CLI) | payer BC, SELFPAY ==
--- OUTSIDE RECORDS SUMMARY | 2023-07-24 12:08 | XMS RPT_ITS | CCD ---
Author Name Unknown Address [address] [place] [address] Organization [facility] Care Team Providers Care Diamond Die Driller Name Role Phone ROSSANA BABB Unavailable Unavailable [...] source) codeine; Translations: [CODEINE] Drug Allergy [facility] Repository (1 source) HYDROcodone; Translations: [HYDROCODONE] Drug Allergy [facility] Repository (1 source) traMADol; Translations: [ULTRAM] Drug Allergy [facility] Repository (2 sources) Iodine Drug Allergy 10-06-2022 [facility] Medications Current Medications Medication Drug Class(es) [...] 90 mm[Hg] Josh Macias MD Work Phone: [facility] [employer] 10-06-2022 18:58-0400 Heart rate 81 /min Josh Macias MD Work Phone: [facility] [employer] 10-06-2022 18:58-0400 Respiratory rate 18 /min Josh Macias MD Work Phone: [facility] [employer] 10-06-2022 18:58-0400 Systolic blood pressure 137 mm[Hg] Josh Macias MD Work Phone: [facility] [employer] 10-06-2022 15:15-0400 SaO2% (BldA) [Mass fraction] 100 % Josh Macias MD Work Phone: [facility] [employer] 10-06-2022 13:17-0400 Body temperature 98.71 [degF] Josh Macias MD Work Phone: [facility] Encounters Encounter Date Encounter Type Care Provider Facility Start: 10-06-2022 End: 10-06-2022 ambulatory PETE RODRIGUEZ [facility] [employer] Start: 10-06-2022 End: 10-06-2022 Emergency department patient visit Josh Macias MD Work Phone: [facility] Procedures Date Procedure Procedure Detail Performing Clinician Start: 10-06-2022 Assay of troponin quantitative Jackie Melendezkeven GETTERING FILAMENT MACHINE OPERATOR [employer] Work Phone: Start: 10-06-2022 Radiologic exam ches t single view Maren Lundy GETTERING FILAMENT MACHINE OPERATOR [employer] Work Phone: Start: 10-06-2022 Basic metabolic pane l calcium total Maren Lundy [employer] Work Phone: Start: 10-06-2022 Ecg routine ecg w/le ast 12 lds trcg only w/o i&r Maren Lundy [employer] Work Phone: Plan of Treatment Date Care Activity Detail Author Start: 02-03-2023 Influenza vaccination Influenz a Vaccine (Season Ended) [facility] Start: 12-08-2020 COVID-19 Vaccine (3 - Booster for Pfizer series) COVID-19 Vaccine (3 - Booster for Pfizer series) [facility] Start: 2019 Zoster Vaccines (1 of 2) Zoster Vacc floyd (1 of 2) [facility] Start: 1988 DTaP/Tdap/Td Vaccine s (1 - Tdap) DTaP/Tdap/Td Vaccines (1 - Tdap) [facility] Start: 1987 Hepatitis C screening Hepatitis C Sc reening [facility] Start: 1981 Depression Screening Depression Scre ening [facility] Start: 1970 MMR Vaccines (1 of 1 - Standard series) MMR Vaccines (1 of 1 - Standard series) [facility] Start: 1969 Hepatitis B Vaccines (1 of 3 - 3-dose series) Hepatitis B Vaccines (1 of 3 - 3-dose series) [facility] Start: 1969 HIV screening HIV Screening [facility] Start: 1969 Lipid panel Lipid Panel [facility] Start: 1969 Screening for malign ant neoplasm of colon [facility] Payers Date Payer Category Payer Unknown [id number] 1970 Unknown [id number] Worker's Compensation Social History Date Type Detail Facility [facility] Start: 1970 Sex Assigned At Not on file S [facility] Start: 09-26-2022 End: 10-06-2022 Exposure to SARS-CoV-2 (event) Not sure [facility] Emergency department Note 10-06-2022 Kelley Mitchell RN - 10/06/2022 6:52 PM EDT Note Date & Type Note Facility 10-06-2022 Emergency department Note For matting of this note might be different from the original. Pt requesting to leave AMA. Physician notified. Kelley Mitchell RN 10/06/221852 [facility] Emergency department Note 10-06-2022 Kelley Mitchell RN - 10/06/2022 6:52 PM EDTGcoreen Mitchell RN - 10/06/2022 6:11 PM EDMin Mitchell RN - 10/06/2022 5:19 PM EDTMaren Lundy APRN - TIRE CORD WEAVER - 10/06/2022 1:13 PM EDT Note Date [...] Complaint Patient presents with Chest Pain BIB [place] for non radiating chest pain x 1 [...] patient and possibility of him having an IA Patient states understanding and will still sign [...] dictating provider for clarification.) Maren N Kamron, GETTERING FILAMENT MACHINE OPERATOR - TIRE CORD WEAVER (electronically signed) Emergency Medicine Provider Maren Lundy APRN - TIRE CORD WEAVER 10/06/22 1327 Maren Lundy APRN - TIRE CORD WEAVER 10/06/22 1432 Maren Lundy APRN - TIRE CORD WEAVER 10/06/22 1522 Maren Lundy APRN - TIRE CORD WEAVER 10/06/22 1527 Emergency Department Encounter [facility] EMERGENCY DEPT Patient: Abraham Black : 1970 [...] are mis-transcribed.) JOSH MACIAS MD Acute Care [facility] Josh Macias MD 10/06/22 1647 Bed: 26 Expected date: Expected time: Means of arrival: Comments: EMS Sindy Dukes RN 10/06/22 1316 documented in this encounter [facility] Emergency department Note 10-06-2022 Kelley Mitchell RN - 10/06/2022 6:11 PM EDT Note Date & Type Note Facility 10-06-2022 Emergency department Note For matting of this note might be different from the original. Physician paged for pain medications. Kelley Mitchell RN 10/06/22 1811 [facility] Clinical Note 10-06-2022 Note Date & Type [...] 650 mg Oral q6h PRN Jackie Melendezs GETTERING FILAMENT MACHINE OPERATOR - MARIANNE Or acetaminophen (Tylenol) suppository 650 mg 650 mg Rectal q6h PRN Jackie Melendezs, GETTERING FILAMENT MACHINE OPERATOR - TIRE CORD WEAVER amLODIPine (Norvasc) tablet 5 mg 5 mg Oral Daily Jackei Traore APRN - MARIANNE [START ON 10/07/2022] aspirin chewable tablet 81 mg 81 mg Oral Daily Jackie Traore GETTERING FILAMENT MACHINE OPERATOR - MARIANNE cyclobenzaprine (Flexeril) tablet 5 mg 5 mg Oral BID PRN Jackie Traore, GETTERING FILAMENT MACHINE OPERATOR - MARIANNE enoxaparin (Lovenox) syringe 40 mg 40 mg SubCUTAneous Daily Jackie Traore, GETTERING FILAMENT MACHINE OPERATOR - MARIANNE famotidine (Pepcid) tablet 40 mg 40 mg Oral Daily Jackie Traore, GETTERING FILAMENT MACHINE OPERATOR - MARIANNE fenofibrate (Triglide) tablet 160 mg 160 mg Oral Daily Jackie Traore, DIMAS - MARIANNE nitroglycerin (Nitrostat) SL tablet 0.4 mg 0.4 mg SubLINGual q5 min PRN Maren Lundy APRN - TIRE CORD WEAVER 0.4 mg at 10/06/22 1344 ondansetron ODT (Zofran-ODT) disintegrating tablet 4 mg 4 mg Oral q8h PRN DIMAS Olson CNP Or ondansetron (Zofran) injection 4 mg 4 mg IntraVENous q6h PRN Jackie Traore, GETTERING FILAMENT MACHINE OPERATOR - MARIANNE polyethylene glycol (PEG) 3350 (Miralax) packet 17 g 17 g Oral Daily PRN Jackie Traore, GETTERING FILAMENT MACHINE OPERATOR - MARIANNE pravastatin (Pravachol) tablet 80 mg 80 mg Oral Nightly Jackie Traore, GETTERING FILAMENT MACHINE OPERATOR - MARIANNE valACYclovir (Valtrex) tablet 500 mg 500 mg Oral Daily Jackie Traore, GETTERING FILAMENT MACHINE OPERATOR - MARIANNE valsartan (Diovan) tablet 160 mg 160 mg Oral Daily Jackie Traore, GETTERING FILAMENT MACHINE OPERATOR - MARIANNE Current Outpatient Medications Medication Sig [...] Normocephalic, atraumatic, scle (more content not included)... [facility] Emergency department Note 10-06-2022 Kelley Mitchell RN - 10/06/2022 5:19 PM EDT Note Date & Type Note Facility 10-06-2022 Emergency department Note For matting of this note might be different from the original. Meal tray delivered to pt. Family at bedside. Kelley Mitchell RN 10/06/22 3115 [facility] Emergency department Note 10-06-2022 Sindy Dukes RN - 10/06/2022 1:13 PM EDT Note Date & Type Note Facility 10-06-2022 Emergency department Note For matting of this note might be different from the original. Bed: 26 Expected date: Expected time: Means of arrival: Comments: EMS Sindy Dukes RN 10/06/22 1316 [facility] Physician Emergency department Note 10-06-2022 DIMAS Oliva [...] Complaint Patient presents with Chest Pain BIB [place] for non radiating chest pain x 1 [...] patient and possibility of him having an IA Patient states understanding and will still sign [...] 10/06/22 1522 DIMAS Oliva CNP 10/06/22 1527 [facility] Physician Emergency department Note 10-06-2022 Josh Macias MD - 10/06/2022 1:13 PM EDT Note Date & Type Note Facility 10-06-2022 Physician Emergency department Note Emergency Department Encounter [facility] EMERGENCY DEPT Patient: Abraham Black : 1970 [...] occasionally words are mis-transcribed.) JOSH MACIAS MD [facility] Josh Macias MD 10/06/22 1647 [employer] Work Phone: Progress note 06-23-2021 Note Date & Type Note Facility 06-23-2021 Note HNO ID: [id number] Author: Lane Kelly, PhD Service: ? Author Type: Psychologist Type: Progress Notes Filed: 06/23/2021 11:01 AM Note Text: [facility] Progress Note Abraham Black 06/23/2021 [id number] Provider: Lane Kelly, PhD CPT Code: 35615 Psychiatric diagnostic evaluation Time: Approximately 50 minutes [...] Psychiatric Medication Issues: see med record DIAGNOSIS: [place] I: Chronic Pain [place] II: deferred [place] III: see med record [place] IV: pain [place] V: 50-55 Treatment Modality/Interventions: Cognitive Behavioral Reassurance/Supportive Psychoeducation TREATMENT ASSESSMENT/PROGRESS: . Progressing satisfactorily. TREATMENT PLAN/GOALS: Continue in therapy focusing on self-care, stress management, affect management and coping with pain. Next appointment: None scheduled. Pt nolan call if issues arise. Lane Kelly, PhD [facility] Evaluation note Note Date & Type Note [...] DATE CREATED AUTHOR AUTHOR'S ORGANIZ ATION 12/21/2017 [facility] DATE CREATED AUTHOR AUTHOR'S ORGANIZ ATION 05/14/2018 [facility]) DATE CREATED AUTHOR AUTHOR'S ORGANIZ ATION 12/27/2019 [facility] DATE CREATED AUTHOR AUTHOR'S ORGANIZ ATION 07/28/2021 [facility] DATE CREATED AUTHOR AUTHOR'S ORGANIZ ATION 11/13/2022 [facility] [employer] [facility] [facility] Reason for Visit (unrecogniz ed section and [...] BE BASED ON THE PRIMARY CLINICAL RECORDS. [employer] [facility]. provides no warranty or guarantee of the accuracy or completeness of information in this document.
[2023-07-24 12:31] LABS: Amphetamine Urine VISTA NEGATIVE (<1000 ng/mL); Barbiturate Urine VISTA NEGATIVE (< 200 ng/mL); Benzodiazepine Urine VISTA NEGATIVE (< 200 ng/mL); Cocaine Urine VISTA NEGATIVE (< 300 ng/mL); Ecstacy Urine VISTA NEGATIVE (< 500 ng/mL); Methadone Urine VISTA NEGATIVE (< 300 ng/mL); PCP Urine VISTA NEGATIVE (< 25 ng/mL); THC Urine VISTA NEGATIVE (< 50 ng/mL); Vista UDS pH Range 5
== END | disposition home or self-care (01) ==
LOC: LAB 11:48
PROVIDERS: PCP Family Medicine; Referring Provider Anesthesiology Pain Medicine; Visit Provider Anesthesiology Pain Medicine
DX: F11.20 Opioid dependence, uncomplicated (principal)
CPT/HCPCS: 80307

== ENCOUNTER → 2023-10-03 | Outpatient (CLI) | payer BC, SELFPAY ==
[2023-10-03 12:55] LABS: Hematocrit 46.7 % (40-54); Hemoglobin 15.8 g/dL (13.0-16.5); Mean Corp Hgb Conc 33.8 g/dL (32-36); Mean Corpuscular Hgb 30.4 pg (27.0-32.0); Mean Corpuscular Volume 89.8 fL (80-94); Mean Platelet Vol. 10.2 fl (6.2-12.0); Platelet Count 284 K/mm3 (150-450); RBC Distribution Width CV 13.2 % (11.6-14.6); RBC Distribution Width SD 43.2 fl (35.1-43.9); White Blood Count 7.7 K/mm3 (4.4-11.0)
[2023-10-03 13:14] LABS: Albumin, Serum 3.9 g/dL (3.2-5.0); BUN 11 mg/dL (7-18); BUN/Creat Ratio 9.2 RATIO (10-20); Calcium,Total 9.1 mg/dL (8.5-10.1); Chloride 113 mmol/L (98-107); EST Glomerular Filtration Rate 67 mL/min (>60); Est Glom Filt Rate - Afr Amer 81 mL/min (>60); Glucose 94 mg/dL (74-106); Phosphorus 3.2 mg/dL (2.5-4.9); Potassium 4.1 mmol/L (3.5-5.1); Sodium Level 141 mmol/L (136-145)
[2023-10-03 13:32] LABS: Protein, Urine (Random) 12.5 mg/dL (<11.9); Protein:Creat Ratio 39 mg/g CRE (0-200)
== END | disposition home or self-care (01) ==
LOC: LAB 11:16
PROVIDERS: PCP Family Medicine; Referring Provider Internal Medicine Nephrology; Visit Provider Internal Medicine Nephrology
DX: R80.9 Proteinuria, unspecified (principal); N18.31 Chronic kidney disease, stage 3a; E55.9 Vitamin D deficiency, unspecified
CPT/HCPCS: 36415; 80069; 82306; 82570; 83970; 84156; 85027

== ENCOUNTER → 2024-03-21 | Outpatient (CLI) | payer BC, SELFPAY ==
[2024-03-21 16:34] LABS: Bacteria 0 SEEN /hpf (None Seen); Red Blood Cells-Urine 0 SEEN /hpf (0-5)
[2024-03-21 18:07] LABS: Absolute Lymphocyte Count 3.02 X10^3/uL (0.83-4.51); Absolute Neutrophil Count 5.6 X10^3/uL (2.0-7.7); Basophil# 0.03 X10^3/uL; Basophil% 0.3 % (0-1); Eosinophils% 3.2 % (0-5); Hematocrit 44.4 % (40-54); Hemoglobin 14.8 g/dL (13.0-16.5); Lymphocyte # 3.02 X10^3/ul (0.83-4.51); Lymphocyte % 31.7 % (19-41); Mean Corp Hgb Conc 33.3 g/dL (32-36); Mean Corpuscular Hgb 30.1 pg (27.0-32.0); Mean Corpuscular Volume 90.4 fL (80-94); Mean Platelet Vol. 10.2 fl (6.2-12.0); Monocyte# 0.59 X10^3/uL; Monocyte% 6.2 % (0-10); NRBC Flagged by Analyzer 0 % (0-5); Neutrophil # 5.56 X10^3/uL (2.7-7.7); Neutrophil % 58.4 % (47-70); Platelet Count 336 K/mm3 (150-450); RBC Distribution Width CV 13.2 % (11.6-14.6); RBC Distribution Width SD 43.5 fl (35.1-43.9); Red Blood Count 4.91 M/mm3 (4.6-6.2); White Blood Count 9.5 K/mm3 (4.4-11.0)
[2024-03-21 18:16] LABS: Color, Urine Yellow (Yellow); Glucose, Dipstick Normal (Normal); Ketone-Dipstick Negative (Negative); Leukocyte Esterase-Dipstick Negative /ul (Negative); Nitrite-Dipstick Negative (Negative); Occult Blood-Urine Negative /ul (Negative); Protein-Dipstick Negative (Negative); Specific Gravity, Urine 1.015 (1.002-1.030); Urine Bilirubin Dipstick Negative (Negative); Urine Clarity Clear (Clear); Urine Urobilinogen Normal (Normal); Urine pH 6.5 (5.0 - 8.0)
[2024-03-21 18:34] LABS: ALB/GLOB Ratio 1.1 RATIO (0.9-2.4); AST(SGOT) 31 U/L (15-37); Alanine Aminotransfer ALT/SGPT 57 U/L (16-61); Alkaline Phosphatase 79 U/L (45-117); Anion Gap 7 (5-15); BUN 12 mg/dL (7-18); BUN/Creat Ratio 9.2 RATIO (10-20); Calcium,Total 9.3 mg/dL (8.5-10.1); Chloride 109 mmol/L (98-107); Cholesterol 182 mg/dL (200); EST Glomerular Filtration Rate 61 mL/min (>60); Est Glom Filt Rate - Afr Amer 74 mL/min (>60); Globulin 3.6 g/dL (2.2-4.2); Glucose 100 mg/dL (74-106); High Density Lipoprotein 33 mg/dL; PSA,Total - Annual Screen 0.49 ng/mL (0.00-4.00); Potassium 4.2 mmol/L (3.5-5.1); Protein, Total 7.6 g/dL (6.4-8.2); Sodium Level 138 mmol/L (136-145); Triglycerides 261 mg/dL; Very Low Density Lipoprotein 52 mg/dL (5-40)
[2024-03-21 18:45] LABS: White Blood Cells 0-5 SEEN /hpf (0-5)
[2024-03-21 18:46] LABS: Hyaline Cast 0-5 SEEN /lpf (0-5); Squamous Epithelial Cells - UA 0-5 SEEN /hpf (0-5)
[2024-03-21 18:47] LABS: Mucous, Urine RARE /hpf (<or=2+)
[2024-03-21 19:22] LABS: Hemoglobin A1c 5.7 % (3.8-5.6)
[2024-03-22 11:14] LABS: Vitamin D,25 Hydroxy 23.4 ng/mL
== END | disposition home or self-care (01) ==
LOC: MFPLAB 16:28
PROVIDERS: PCP Family Medicine; Visit Provider Family Medicine
DX: Z12.5 Encounter for screening for malignant neoplasm of prostate (principal); I10 Essential (primary) hypertension; E78.5 Hyperlipidemia, unspecified; E55.9 Vitamin D deficiency, unspecified; R73.02 Impaired glucose tolerance (oral)
CPT/HCPCS: 36415; 80053; 80061; 81001; 82306; 83036; 84153; 85025; G0103

== ENCOUNTER 2024-10-18 11:21 | Outpatient (CLI) | payer OTHER, SELFPAY ==
[2024-10-18 11:24] LABS: Bacteria 0 SEEN /hpf (None Seen); Red Blood Cells-Urine 0 SEEN /hpf (0-5)
[2024-10-18 12:24] LABS: Color, Urine Yellow (Yellow); Glucose, Dipstick Normal (Normal); Ketone-Dipstick Negative (Negative); Leukocyte Esterase-Dipstick Negative /ul (Negative); Nitrite-Dipstick Negative (Negative); Occult Blood-Urine Negative /ul (Negative); Protein-Dipstick 15 mg/dl (Negative); Specific Gravity, Urine 1.025 (1.002-1.030); Urine Bilirubin Dipstick Negative (Negative); Urine Clarity Clear (Clear); Urine Urobilinogen Normal (Normal)
[2024-10-18 12:35] LABS: Absolute Lymphocyte Count 2.04 X10^3/uL (0.83-4.51); Absolute Neutrophil Count 4.9 X10^3/uL (2.0-7.7); Basophil# 0.02 X10^3/uL; Basophil% 0.3 % (0-1); Eosinophil# 0.19 X10^3/uL; Eosinophils% 2.5 % (0-5); Hematocrit 42.5 % (40-54); Hemoglobin 14.4 g/dL (13.0-16.5); Lymphocyte # 2.04 X10^3/ul (0.83-4.51); Lymphocyte % 26.7 % (19-41); Mean Corp Hgb Conc 33.9 g/dL (32-36); Mean Corpuscular Hgb 30.3 pg (27.0-32.0); Mean Corpuscular Volume 89.5 fL (80-94); Mean Platelet Vol. 9.9 fl (6.2-12.0); Monocyte# 0.46 X10^3/uL; NRBC Flagged by Analyzer 0 % (0-5); Neutrophil # 4.88 X10^3/uL (2.7-7.7); Platelet Count 332 K/mm3 (150-450); RBC Distribution Width CV 13.2 % (11.6-14.6); RBC Distribution Width SD 43.9 fl (35.1-43.9); Red Blood Count 4.75 M/mm3 (4.6-6.2); Squamous Epithelial Cells - UA 0-5 SEEN /hpf (0-5); White Blood Cells 0-5 SEEN /hpf (0-5); White Blood Count 7.6 K/mm3 (4.4-11.0)
[2024-10-18 12:36] LABS: Mucous, Urine 1+ /hpf (<or=2+)
[2024-10-18 13:00] LABS: ALB/GLOB Ratio 1.5 RATIO (0.9-2.4); AST(SGOT) 27 U/L (<=37); Alanine Aminotransfer ALT/SGPT 42 U/L (<=46); Albumin, Serum 4.4 g/dL (3.5-5.0); Alkaline Phosphatase 67 U/L (40-129); Anion Gap 12 (5-15); BUN 13 mg/dL (4-19); BUN/Creat Ratio 11.6 RATIO (10-20); Calcium,Total 9.5 mg/dL (7.6-11.0); Carbon Dioxide 20.4 mmol/L (21.0-32.0); Chloride 109 mmol/L (98-108); Cholesterol 155 mg/dL (<=200); Creatinine, Serum 1.14 mg/dL (0.70-1.20); EST Glomerular Filtration Rate 76 (>60); Globulin 2.9 g/dL (2.2-4.2); Glucose 95 mg/dL (70-99); Hemoglobin A1c 5.9 % (<=5.6); High Density Lipoprotein 37 mg/dL; Low Density Lipoprotein Calc. 100 mg/dL; Protein, Total 7.3 g/dL (5.9-8.4); Sodium Level 141 mmol/L (133-145); Total Bilirubin 0.41 mg/dL (0.00-1.30); Triglycerides 94 mg/dL; Very Low Density Lipoprotein 19 mg/dL (5-40); Vitamin D,25 Hydroxy 42.1 ng/mL (30-100); cholesterol:hdl ratio screen 4.25
== END 2024-10-18 23:59 | disposition home or self-care (01) ==
LOC: MFPLAB 11:22
PROVIDERS: PCP Family Medicine; Referring Provider Family Medicine; Visit Provider Family Medicine
DX: I10 Essential (primary) hypertension (principal); E78.5 Hyperlipidemia, unspecified; R73.02 Impaired glucose tolerance (oral); E55.9 Vitamin D deficiency, unspecified
CPT/HCPCS: 36415; 80053; 80061; 81001; 82306; 83036; 83735; 85025

== ENCOUNTER → 2025-04-18 | Outpatient (CLI) | payer OTHER, SELFPAY ==
[2025-04-18 15:48] LABS: PSA,Total - Annual Screen 0.30 ng/mL (0.02-4.00)
== END | disposition home or self-care (01) ==
LOC: MFPLAB 11:39
PROVIDERS: PCP Family Medicine
DX: Z12.5 Encounter for screening for malignant neoplasm of prostate (principal)
CPT/HCPCS: 36415; 84153; G0103

== ENCOUNTER → 2025-05-23 | Outpatient (CLI) | payer OTHER, SELFPAY ==
--- NOTE | 2025-05-23 15:33 | MRI_ITS ---
PROCEDURE: SPINE LUMBAR (ROUTINE) 05/23/2025 REASON FOR EXAM: POST LAMINECTOMY SYNDROME TECHNIQUE: Procedure Code: MRISPL Modality: MR Procedure: SPINE LUMBAR (ROUTINE) COMPARISON: MRI lumbar spine 12/03/2022 FINDINGS: Vertebrae: Preserved in height and signal. Status post posterior fusion of L4-L5. Alignment: Normal alignment. Conus Medullaris: Unremarkable. L1-2: Unremarkable. L2-3: Unremarkable. L3-4: Disc bulge. Facet joints arthropathy. Mild inferior bilateral foramina stenosis. No significant canal stenosis. L4-5: Facet joints arthropathy. Mild bilateral foramina stenosis. No canal stenosis. L5-S1: Disc bulge. Facet joints arthropathy. Mild bilateral foramina stenosis. No canal stenosis. Sacrum: Unremarkable. MRI/Spine Lumbar (Routine) IMPRESSION: Postsurgical changes for posterior fusion at L4-L5 with metallic hardware. Moderate bilateral foramina at L5-S1. No significant canal stenosis. Reading Location: [id number]
--- OUTSIDE RECORDS SUMMARY | 2025-05-23 16:22 | XMS RPT_ITS | CCD ---
Author Organization [facility] Care Team Providers Care Turkey Cleaner Name Role Phone ROSSANA BABB Unavailable Unavailable ROSSANA BABB Unavailable Unavailable NO REFERRING Unavailable Unavailable Chino López Unavailable Unavailable PROVIDER, UNKNOWN Unavailable Unavailable No, PCP Unavailable Unavailable HOOD VILLAVICENCIO Unavailable Unavailable JOHNNY CASTILLO Unavailable Unavailable Unavailable Primary Care Provider UnavailDr. Ariadna Roberts Primary Care Provider Dr. Ariadna Roth Referring Provider Dr. Ariadna Roth Other Provider Dr. Danny Arroyo Attending Provider Dr. Benito Solis Attending Provider Dr. Ariadna Roth Primary Care Provider Dr. Ariadna Roth Referring Provider Dr. Yuriy Tripathi Attending Provider Dr. Benito Solis Attending Provider Unavailable Primary Care Provider UnavailGEORGE James Attending Unavailable GEORGE LARA Referring Unavailable ARIADNA ROTH Primary Care Unavailable GEORGE LARA Referring Unavailable GEORGE LARA Attending Unavailable Ariadna Roth MD Primary Care Provider Dr. Ariadna Roth MD Primary Care Provider Dr. Ariadna Roth MD Attending Provider [phone] Dr. Ariadna Roth MD Referring Provider Aridana Roth Attending Unavailable Ariadna Roth Primary Care Unavailable Ariadna Roth Attending Unavailable Ariadna Roth Referring Unavailable Ariadna Roth Primary Care Unavailable Allergies Allergy Classification Reported Allergen(s) Allergy Type Date of Onset Reaction(s) Facility (1 source) codeine; Translations: [CODEINE] Drug Allergy [facility] Repository (15 sources) HYDROcodone; Translations: [HYDROCODONE] Drug Allergy 0 Other [facility] Comment on above: Itching (1 source) traMADol; Translations: [ULTRAM] Drug Allergy [facility] Repository (13 sources) Acetaminophen Drug Allergy 0 Other [facility] Comment on above: Itching (20 sources) Iodine Drug Allergy 0 Swelling [facility] (13 sources) traMADol Drug Allergy 0 Other [facility] Comment on above: Headache (13 sources) Gadolinium-MRI Contrast Medium Allergy to substance 0 Other [facility] (1 source) Acetaminophen Drug Allergy 3 [facility] (1 source) Iodine Drug Allergy 3 [facility] (1 source) traMADol Drug Allergy 3 [facility] (1 source) Gadolinium-MRI Contrast Medium Drug allergy (disorder) 3 [facility] Repository Medications Current Medications Medication Drug Class(es) Dates Sig (Normalized) Sig (Original) amLODIPine 5 mg / valsartan 160 mg oral tablet (20 sources) Dihydropyridine Calcium Channel Rickie, Angiotensin 2 Receptor Rickie Start: 07-26-2013 Amlodipine-Valsar robison 1 TAB tablet Active 1 {tbl} PO DAILY July 26, 2013 1:00am Start: 07-26-2013 take 1 tablet by alban th once daily Amlodipine-Valsartan Active 1 TABLET PO DAILY July 26, 2013 1:00am aspirin 81 mg chewable tablet (2 sources) Platelet Aggregation Inhibitor, Nonsteroidal Anti-inflammatory Drug Start: 10-07-2022 End: 10-06-2022 aspirin chewable tablet 81 mg Start: 10-07-2022 End: 10-06-2022 aspirin chewable tablet 81 m g fexofenadine hydrochloride 60 mg oral tablet (13 sources) Histamine-1 Receptor Antagonist Start: 03-05-2020 take 1 tablet by mouth once daily Fexofenadine ([place] [facility]) 60 mg tablet Active 60 mg PO DAILY March 05, 2020 12:00am omeprazole 40 mg delayed release oral capsule (19 sources) Proton Pump Inhibitor Start: 01-05-2023 take 1 capsule by mouth twice daily Omeprazole 40 mg capsule,delayed release(DR/EC) Active 40 mg PO TWICE A DAY January 05, 2023 12:00am Start: 07-26-2013 End: 03-05-2020 take 1 capsule by mouth once daily Omeprazole 40 MG capsule,delayed release(DR/EC) Discontinued 40 mg PO DAILY July 26, 2013 1:00am March 05, 2020 8:59am oxyCODONE 13.5 mg 12 hr extended release oral capsule, abuse-deterrent (17 sources) Opioid Agonist Start: 01-05-2023 take 1 capsule by mouth twice daily Oxycodone Myristate (Xtampza Er) 13.5 mg cap,sprinkl,ER12hr(DONT CRUSH) Active 13.5 mg PO TWICE A DAY January 05, 2023 12:00am Start: 10-06-2022 End: 10-06-2022 oxyCODONE ER (OxyCONTIN) 12 hr tablet 15 mg Start: 09-20-2022 End: 10-18-2022 take 1 capsule by mouth twice daily at mealtime, then take 1 capsule by mouth every twelve hours oxyCODONE ER (Xtampza ER) 13.5 MG 12 hr abuse-deterrent capsule Take 13.5 mg by mouth 2 times daily. Must be taken with food. Do not chew or crush 0 09/20/2022 10/18/2022 Active Start: 03-25-2020 Oxycodone Myri state Active 18 MG PO 1700 March 25, 2020 12:00am pravastatin sodium 80 mg oral tablet (20 sources) HMG-CoA Reductase Inhibitor Start: 03-05-2020 Pravastatin 80 mg tablet Active 1 {tbl} PO AT BEDTIME March 05, 2020 12:00am Start: 03-05-2020 End: 10-06-2022 take 1 tablet by mouth at bedtime Pravastatin Active 1 TABLET PO AT BEDTIME March 05, 2020 12:00am Start: 07-26-2013 End: 03-05-2020 take 1 tablet by mouth once daily Pravastatin 40 MG tablet Discontinued 40 mg PO DAILY July 26, 2013 1:00am March 05, 2020 8:57am triamcinolone acetonide 0.055 mg/actuat metered dose nasal spray (13 sources) Corticosteroid Start: 03-05-2020 Triamcinolone Acetonide (Nasacort) 55 mcg aerosol,spray Active 1 NMA INTRANASAL DAILY March 05, 2020 12:00am administer into each nostril Start: 03-05-2020 take 1 spray(s) nasa l route once daily Triamcinolone Acetonide (Nasacort) 55 mcg aerosol,spray Active 1 SPRAY INTRANASAL DAILY March 05, 2020 12:00am administer into each nostril valACYclovir 500 mg oral tablet (20 sources) Herpesvirus Nucleoside Analog DNA Polymerase Inhibitor, Herpes Simplex Virus Nucleoside Analog DNA Polymerase Inhibitor, Herpes Zoster Virus Nucleoside Analog DNA Polymerase Inhibitor Start: 07-26-2013 End: 10-06-2022 take 1 tablet by mouth once daily Valacyclovir 500 MG tablet Active 500 mg PO DAILY July 26, 2013 1:00am Completed/Discontinued Medications Medication Drug Class(es) Dates Sig (Normalized) Sig (Original) Acetaminophen (2 sources) Start: 10-06-2022 End: 10-06-2022 take 1 tablet by mouth every six hours as needed for pain and fever acetaminophen (Tylenol) tablet 650 mg acetaminophen 325 mg / oxyCODONE hydrochloride 5 mg oral tablet (20 sources) Opioid Agonist Start: 04-03-2020 End: 04-08-2020 take 1-2 tablets by mouth every six hours as needed for pain Oxycodone-Acetamino phen 1 TABLET tablet Discontinued 1 - 2 {tbl} PO EVERY 6 HOURS NEEDED as needed for Pain 30 10April 03, 2020 April 07, 2020 1:00am April 08, 2020 1:02am stop all other tylenol and narcotics Start: 04-03-2020 End: 04-08-2020 take 1-2 tablets by mouth every six hours as needed Oxycodone-Acetaminophen Discontinued 1 - 2 TABLET PO EVERY 6 HOURS NEEDED 30 10April 03, 2020 April 08, 2020 1:02am stop all other tylenol and narcotics Start: 07-26-2013 End: 03-05-2020 Oxycodone-Acetaminophen 1 TA BLET tablet Discontinued 1 - 2 {tbl} PO EVERY 4 HOURS NEEDED as needed for Pain July 26, 2013 1:00am March 05, 2020 8:57am Start: 07-26-2013 End: 03-05-2020 take 1 tablet by mouth every four hours as needed Oxycodone-Acetaminophen Discontinued 1 - 2 TABLET PO EVERY 4 HOURS NEEDED July 26, 2013 1:00am March 05, 2020 8:57am amLODIPine 5 mg oral tablet (2 sources) Dihydropyridine Calcium Channel Rickie Start: 10-06-2022 End: 10-06-2022 take 5 mg by mouth once daily 5 mg, Oral, Daily, First dose on [facility] 10/06/22 at 1540 cyclobenzaprine hydrochloride 10 mg oral tablet (20 sources) Muscle Relaxant Start: 10-06-2022 End: 10-06-2022 take 5 mg by mouth twice daily as needed for muscle spasms 5 mg, Oral, 2 times daily PRN, muscle spasms, Starting on [facility] 10/06/22 at 1539 Start: 03-05-2020 take 1 tablet by alban at bedtime as needed for pain Cyclobenzaprine 5 mg tablet Active 5 mg PO AT BEDTIME as needed for pain March 05, 2020 12:00am 0.4 ml enoxaparin sodium 100 mg/ml prefilled syringe (2 sources) Low Molecular Weight Heparin Start: 10-06-2022 End: 10-06-2022 enoxaparin (Lovenox) syringe 40 mg famotidine 20 mg oral tablet (16 sources) Histamine-2 Receptor Antagonist Start: 10-06-2022 End: 10-06-2022 take 40 mg by mouth once daily 40 mg, Oral, Daily, First dose on [facility] 10/06/22 at 1540 Start: 03-05-2020 take 40 mg by mouth once daily Famotidine Active 40 MG PO DAILY March 05, 2020 12:00am fenofibrate 160 mg oral tablet (20 sources) Peroxisome Proliferator Receptor alpha Agonist Start: 10-06-2022 End: 10-06-2022 take 160 mg by mouth once daily 160 mg, Oral, Daily, First dose on [facility] 10/06/22 at 1540 Substituted for Fenofibrate (Non-Formulary Dose). Start: 03-05-2020 take 1 capsule by mo [facility] once daily Fenofibric Acid (Choline) 135 mg capsule,delayed release(DR/EC) Active 1 {tbl} PO DAILY March 05, 2020 12:00am levocetirizine dihydrochloride 5 mg oral tablet (13 sources) Histamine-1 Receptor Antagonist Start: 07-26-2013 End: 03-05-2020 take 1 tablet by mouth once daily Levocetirizine 5 MG tablet Discontinued 5 mg PO DAILY July 26, 2013 1:00am March 05, 2020 8:59am naproxen 500 mg oral tablet (13 sources) Nonsteroidal Anti-inflammatory Drug Start: 07-26-2013 End: 03-05-2020 take 1 tablet by mouth twice daily as needed Naproxen 500 MG tablet Discontinued 500 mg PO TWICE DAILY NEEDED July 26, 2013 1:00am March 05, 2020 8:56am nitroglycerin 0.4 mg sublingual tablet (2 sources) Nitrate Vasodilator Start: 10-06-2022 End: 10-06-2022 nitroglycerin (Nitrostat) SL tablet 0.4 mg ondansetron ODT (Zofran-ODT) disintegrating tablet 4 mg (2 sources) Start: 10-06-2022 End: 10-06-2022 take 1 tablet by mouth every eight hours as needed for nausea and vomiting ondansetron ODT (Zofran-ODT) disintegrating tablet 4 mg polyethylene glycol 3350 21682 mg powder for oral solution (2 sources) Osmotic Laxative Start: 10-06-2022 End: 10-06-2022 take 17 g by mouth every twenty-four hours as needed for constipation polyethylene glycol (PEG) 3350 (Miralax) packet 17 g valsartan 160 mg oral tablet (2 sources) Angiotensin 2 Receptor Rickie Start: 10-06-2022 End: 10-06-2022 take 160 mg by mouth once daily 160 mg, Oral, Daily, First dose on [facility] 10/06/22 at 1540 Problems Active Problems Problem Classification Problem Date Documented Date Episodic/Chronic Essential hypertension (1 source) Essential (primary) hypertension; Translations: [Essential (primary) hypertension] Onset: 10-22-2024 Chronic Other connective tissue disease (13 sources) Triggering of digit; Translations: [Trigger finger, right middle finger] 03-05-2020 Episodic Other connective tissue disease (6 sources) History of lumbar fusion; Translations: [Arthrodesis status] 01-05-2023 Episodic Other connective tissue disease (1 source) Arthrodesis status; Translations: [Arthrodesis status] 01-05-2023 Episodic Spondylosis; intervertebral disc disorders; other back problems (2 sources) Displacement of lumbar intervertebral disc without myelopathy; Translations: [LUMBAR DISC DISPLACEMENT] Onset: 10-08-2014 Chronic Spondylosis; intervertebral disc disorders; other back problems (6 sources) Low back pain; Translations: [Low back pain] 01-05-2023 Episodic Sprains and strains (8 sources) Sprain of wrist and/or hand; Translations: [Sprain of unspecified part of left wrist and hand, initial encounter] Onset: 03-13-2024 02-23-2024 Episodic Past or Other Problems Problem Classification Problem Date Documented Date Episodic/Chronic Nonspecific chest pain (18 sources) Chest pain; Translations: [Chest pain, unspecified] Onset: 10-06-2022 Episodic Other screening for suspected conditions (not mental disorders or infectious disease) (1 source) Encounter for screening for malignant neoplasm of prostate; Translations: [Encounter for screening for malignant neoplasm of prostate] Onset: 04-11-2024 Episodic Unclassified (1 source) LUMBAR DISC DISPLACEMENT; Translations: [LUMBAR DISC DISPLACEMENT] Onset: 10-08-2014 Unclassified (13 sources) L4 L5 fusion 12-24-2021 Unclassified (13 sources) history of trigger finger release 12-24-2021 Comment on above: Right hand: second a nd fourth metacarpalLeft hand: fourth metacarpal Results Test Name Value Interpretation Reference Range Facility Absolute lymphocyte countOrd ered By: Ariadna Roth on 10-18-2024 Lymphocytes Auto (Unsp spec) [#/Vol] 2.04 10*3/uL 0.83-4.51 [facility] Absolute neutrophil countOrd ered By: Ariadna Roth on 10-18-2024 Neutrophils (Bld) [#/Vol] 4.9 10*3/uL 2.0-7.7 [facility] Anion gap in Serum or Plasma Ordered By: Ariadna Rtoh on 10-18-2024 Anion gap [Moles/Vol] 12 mmol/L 5-15 [facility] Automated lymphocyte count a s percentage of total leukocytesOrdered By: Ariadna Roth on 10-18-2024 Lymphocytes/100 WBC Auto (Unsp spec) 26.7 % 19-41 [facility] BUN/creatinine ratioOrdered By: Ariadna Roth on 10-18-2024 Urea nitrogen/Creatinine [Mass ratio] 11.6 mg/mg 10-20 [facility] Basophil percentageOrdered B y: Ariadna Roth on 10-18-2024 Basophils/100 WBC (Bld) 0.3 % 0-1 [facility] Bilirubin Test strip Ql (U)O rdered By: Ariadna Roth on 10-18-2024 Bilirubin Ql (U) Negative Negative [facility] Bilirubin, totalOrdered By: Ariadna Roth on 10-18-2024 Bilirubin [Mass/Vol] 0.41 mg/dL Normal 0.00-1.30 [facility] Comment on above: Order Comment: Order Date: 10/18/24 Order Info: [id number] - CMP Order Info: [id number] - LIPID Order Info: [id number] - MG Performed By: #### L 500.4100, L501.5200, L501.9985, L500.4050, L100.0100 #### [facility] [address] [place], [place], [id number] CBC W/Diff, Automatedon 10-03 Absolute Lymph 2.04 X10 3/uL Normal 0.83-4.51 [facility] Comment on above: Order Comment: Order Date: 10/18/24 Order Info: [id number] - CBCD Performed By: #### L 500.4100, L501.5200, L501.9985, L500.4050, L100.0100 #### [facility] [address] [place], [address] Absolute Neut 4.9 X10 3/uL Normal 2.0-7.7 [facility] Comment on above: Order Comment: Order Date: 10/18/24 Order Info: [id number] - CBCD Performed By: #### L 500.4100, L501.5200, L501.9985, L500.4050, L100.0100 #### [facility] [address] [place], [place], [id number] [phone] Basophils/100 WBC (Bld) 0.3 % Normal 0-1 [facility] Comment on above: Order Comment: Order Date: 10/18/24 Order Info: [id number] - CBCD Performed By: #### L 500.4100, L501.5200, L501.9985, L500.4050, L100.0100 #### [facility] [address] [place], [address] Eosinophils/100 WBC (Bld) 2.5 % Normal 0-5 [facility] Comment on above: Order Comment: Order Date: 10/18/24 Order Info: [id number] - CBCD Performed By: #### L 500.4100, L501.5200, L501.9985, L500.4050, L100.0100 #### [facility] [address] [place], [address] Erythrocyte distribution width (RBC) [Ratio] 13.2 % Normal 11.6-14.6 [facility] Comment on above: Order Comment: Order Date: 10/18/24 Order Info: [id number] - CBCD Performed By: #### L 500.4100, L501.5200, L501.9985, L500.4050, L100.0100 #### [facility] [address] [place], [address] Hematocrit (Bld) [Volume fraction] 42.5 % Normal 40-54 [facility] Comment on above: Order Comment: Order Date: 10/18/24 Order Info: [id number] - CBCD Performed By: #### L 500.4100, L501.5200, L501.9985, L500.4050, L100.0100 #### [facility] [address] [place], [address] Hemoglobin (Bld) [Mass/Vol] 14.4 g/dL Normal 13.0-16.5 [facility] Comment on above: Order Comment: Order Date: 10/18/24 Order Info: [id number] - CBCD Performed By: #### L 500.4100, L501.5200, L501.9985, L500.4050, L100.0100 #### [facility] [address] [place], [address] IG% 0.500 Normal 0.0-0.9 [facility] Comment on above: Order Comment: Order Date: 10/18/24 Order Info: [id number]- - CBCD Result Comment: IG% - Immature Granulocytes (promyelocytes, myelocytes and metamyelocytes) > 1% indicates that a LEFT SHIFT is Present. Performed By: #### L 500.4100, L501.5200, L501.9985, L500.4050, L100.0100 #### [facility] [address] [place], [address] Lymphocytes/100 WBC (Bld) 26.7 % Normal 19-41 [facility] Comment on above: Order Comment: Order Date: 10/18/24 Order Info: [id number]- - CBCD Performed By: #### L 500.4100, L501.5200, L501.9985, L500.4050, L100.0100 #### [facility] [address] [place], [address] MCH (RBC) [Entitic mass] 30.3 pg Normal 27.0-32.0 [facility] Comment on above: Order Comment: Order Date: 10/18/24 Order Info: [id number]- - CBCD Performed By: #### L 500.4100, L501.5200, L501.9985, L500.4050, L100.0100 #### [facility] [address] [place], [address] MCHC (RBC) [Mass/Vol] 33.9 g/dL Normal 32-36 [facility] Comment on above: Order Comment: Order Date: 10/18/24 Order Info: [id number]- - CBCD Performed By: #### L 500.4100, L501.5200, L501.9985, L500.4050, L100.0100 #### [facility] [address] [place], [address] MCV (RBC) [Entitic vol] 89.5 fL Normal 80-94 [facility] Comment on above: Order Comment: Order Date: 10/18/24 Order Info: [id number] - CBCD Performed By: #### L 500.4100, L501.5200, L501.9985, L500.4050, L100.0100 #### [facility] [address] [place], [address] Monocytes/100 WBC (Bld) 6.0 % Normal 0-10 [facility] Comment on above: Order Comment: Order Date: 10/18/24 Order Info: [id number]- - CBCD Performed By: #### L 500.4100, L501.5200, L501.9985, L500.4050, L100.0100 #### [facility] [address] [place], [address] Neutrophils/100 WBC (Bld) 64.0 % Normal 47-70 [facility] Comment on above: Order Comment: Order Date: 10/18/24 Order Info: [id number]- - CBCD Performed By: #### L 500.4100, L501.5200, L501.9985, L500.4050, L100.0100 #### [facility] [address] [place], [address] Nucleated RBC (Bld) [#/Vol] 0 10*3/uL Normal 0-5 [facility] Comment on above: Order Comment: Order Date: 10/18/24 Order Info: [id number] - CBCD Performed By: #### L 500.4100, L501.5200, L501.9985, L500.4050, L100.0100 #### [facility] [address] [place], [address] Platelet mean volume (Bld) [Entitic vol] 9.9 fL Normal 6.2-12.0 [facility] Comment on above: Order Comment: Order Date: 10/18/24 Order Info: [id number] - CBCD Performed By: #### L 500.4100, L501.5200, L501.9985, L500.4050, L100.0100 #### [facility] [address] [place], [address] Platelets (Bld) [#/Vol] 332 10*3/uL Normal 150-450 [facility] Comment on above: Order Comment: Order Date: 10/18/24 Order Info: [id number]- - CBCD Performed By: #### L 500.4100, L501.5200, L501.9985, L500.4050, L100.0100 #### [facility] [address] [place], [address] RBC (Bld) [#/Vol] 4.75 10*6/uL Normal 4.6-6.2 [facility] Comment on above: Order Comment: Order Date: 10/18/24 Order Info: [id number]- - CBCD Performed By: #### L 500.4100, L501.5200, L501.9985, L500.4050, L100.0100 #### [facility] [address] [place], [address] RDW SD 43.9 fl Normal 35.1-43.9 [facility] Comment on above: Order Comment: Order Date: 10/18/24 Order Info: [id number] - CBCD Performed By: #### L 500.4100, L501.5200, L501.9985, L500.4050, L100.0100 #### [facility] [address] [place], [address] WBC (Bld) [#/Vol] 7.6 10*3/uL Normal 4.4-11.0 [facility] Comment on above: Order Comment: Order Date: 10/18/24 Order Info: [id number] - CBCD Performed By: #### L 500.4100, L501.5200, L501.9985, L500.4050, L100.0100 #### [facility] [address] [place], [address] Calculated very low density lipoprotein (VLDL) cholesterol measurementOrdered By: Ariadna Roth on 10-18-2024 Calculated very low density lipoprotein (VLDL) cholesterol measurement 19 mg/dL 5-40 [facility] Carbon dioxide, total [Moles /volume] in Central venous bloodOrdered By: Ariadna Roth on 10-18-2024 CO2 [Moles/Vol] 20.4 mmol/L Low 21.0-32.0 [facility] Comment on above: Order Comment: Order Date: 10/18/24 Order Info: [id number] - CMP Order Info: [id number] - LIPID Order Info: [id number] - MG Performed By: #### L 500.4100, L501.5200, L501.9985, L500.4050, L100.0100 #### [facility] [address] [place], [address] Chloride assayOrdered By: Constance Roth on 10-18-2024 Chloride [Moles/Vol] 109 mmol/L High 98-108 [facility] Comment on above: Order Comment: Order Date: 10/18/24 Order Info: [id number] - CMP Order Info: [id number] - LIPID Order Info: [id number] - MG Performed By: #### L 500.4100, L501.5200, L501.9985, L500.4050, L100.0100 #### [facility] [address] [place], [address] Comprehensive Metabolic Prof ilon 10-18-2024 ALK PHOS 67 U/L Normal 40-129 [facility] Comment on above: Order Comment: Order Date: 10/18/24 Order Info: [id number] - CMP Order Info: [id number] - LIPID Order Info: [id number] - MG Performed By: #### L 500.4100, L501.5200, L501.9985, L500.4050, L100.0100 #### [facility] [address] [place], [address] BUN/CRE 11.6 RATIO Normal 10-20 [facility] Comment on above: Order Comment: Order Date: 10/18/24 Order Info: [id number] - CMP Order Info: [id number] - LIPID Order Info: [id number] - MG Performed By: #### L 500.4100, L501.5200, L501.9985, L500.4050, L100.0100 #### [facility] [address] [place], [place], [id number] GAP 12 Normal 5-15 [facility] Comment on above: Order Comment: Order Date: 10/18/24 Order Info: [id number] - CMP Order Info: [id number] - LIPID Order Info: [id number] - MG Performed By: #### L 500.4100, L501.5200, L501.9985, L500.4050, L100.0100 #### [facility] [address] [place], [address] Potassium [Moles/Vol] 4.0 mmol/L Normal 3.3-5.1 [facility] Comment on above: Order Comment: Order Date: 10/18/24 Order Info: [id number] - CMP Order Info: [id number] - LIPID Order Info: [id number] - MG Performed By: #### L 500.4100, L501.5200, L501.9985, L500.4050, L100.0100 #### [facility] [address] [place], [address] T PROT 7.3 g/dL Normal 5.9-8.4 [facility] Comment on above: Order Comment: Order Date: 10/18/24 Order Info: [id number] - CMP Order Info: [id number] - LIPID Order Info: [id number] - MG Performed By: #### L 500.4100, L501.5200, L501.9985, L500.4050, L100.0100 #### [facility] [address] [place], [place], [id number] Comprehensive Metabolic Prof ilOrdered By: Ariadna Roth on 10-18-2024 AST [Catalytic activity/Vol] 27 U/L Normal <=37 [facility] Comment on above: Order Comment: Order Date: 10/18/24 Order Info: [id number] - CMP Order Info: [id number] - LIPID Order Info: [id number] - MG Performed By: #### L 500.4100, L501.5200, L501.9985, L500.4050, L100.0100 #### [facility] [address] [place], [place], [id number] Eosinophil percentageOrdered By: Ariadna Roth on 10-18-2024 Eosinophils/100 WBC (Bld) 2.5 % 0-5 [facility] Erythrocyte distribution wid th ratioOrdered By: Ariadna Roth on 10-18-2024 Erythrocyte distribution width (RBC) [Ratio] 13.2 % 11.6-14.6 [facility] Erythrocyte distribution wid th standard deviationOrdered By: Ariadna Roth on 10-18-2024 Erythrocyte distribution width (RBC) [Ratio] 43.9 fl 35.1-43.9 [facility] Glomerular filtration rate ( GFR) estimation/1.73 sq m using serum, plasma, or whole bOrdered By: Ariadna Roth on 10-18-2024 GFR/1.73 sq M.predicted among non-blacks MDRD (S/P/Bld) [Vol rate/Area] 76 mL/min/{1.73_m2} Normal >60 [facility] Comment on above: mL/min/1.73m2 CKD-EP I Creatinine Equation (2020) Order Comment: Order Date: 10/18/24 Order Info: [id number] - CMP Order Info: [id number] - LIPID Order Info: [id number] - MG Result Comment: mL/m in/1.73m2 CKD-EPI Creatinine Equation (2020) Performed By: #### L 500.4100, L501.5200, L501.9985, L500.4050, L100.0100 #### [facility] [address] [place], [place], [address] Hematocrit Auto (Bld) [Volum e fraction]Ordered By: Ariadna Roth on 10-18-2024 Hematocrit (Bld) [Volume fraction] 42.5 % 40-54 [facility] Hemoglobin A1c percentageOrd ered By: Ariadna Roth on 10-18-2024 HbA1c (Bld) [Mass fraction] 5.9 % High <=5.6 [facility] Comment on above: Normal < 5.7 % Predi abetic 5.7 - 6.4 % Diabetic >or= 6.5 % Please note range changes. Order Comment: Order Date: 10/18/24 Order Info: [id number] - A1C Result Comment: Norm al < 5.7 % Prediabetic 5.7 - 6.4 % Diabetic >or= 6.5 % Please note range changes. Performed By: #### L 500.4100, L501.5200, L501.9985, L500.4050, L100.0100 #### [facility] [address] [place], [place], [address] Hemoglobin measurementOrdere d By: Ariadna Roth on 10-18-2024 Hemoglobin (Bld) [Mass/Vol] 14.4 g/dL 13.0-16.5 [facility] Immature granulocytes/100 WB C Auto (Bld)Ordered By: Ariadna Roth on 10-18-2024 Immature granulocytes/100 WBC (Bld) 0.500 % 0.0-0.9 [facility] Comment on above: IG% - Immature Granu locytes (promyelocytes, myelocytes and metamyelocytes) > 1% indicates that a LEFT SHIFT is Present. Ketones Test strip Ql (U)Ord ered By: Ariadna Roth on 10-18-2024 Ketones Ql (U) Negative Negative [facility] LDL calc ser/plasOrdered By: Ariadna Roth on 10-18-2024 Cholesterol in LDL [Mass/Vol] 100 mg/dL Normal [facility] Comment on above: Zdtikknlzt=332-779 m g/dL & Higher Wxpo=927 mg/dL or greater Order Comment: Order Date: 10/18/24 Order Info: [id number] - CMP Order Info: [id number] - LIPID Order Info: [id number] - MG Result Comment: Bord kiabna=555-657 mg/dL Higher Zziy=492 mg/dL or greater Performed By: #### L 500.4100, L501.5200, L501.9985, L500.4050, L100.0100 #### [facility] [address], [address] Lipid Profileon 10-18-2024 CHOL:HDL 4.25 Normal [facility] Comment on above: Order Comment: Order Date: 10/18/24 Order Info: [id number]- - CMP Order Info: [id number] - LIPID Order Info: [id number] - MG Performed By: #### L 500.4100, L501.5200, L501.9985, L500.4050, L100.0100 #### [facility] [address] [place], [address] Cholesterol in VLDL [Mass/Vol] 19 mg/dL Normal 5-40 [facility] Comment on above: Order Comment: Order Date: 10/18/24 Order Info: [id number] - CMP Order Info: [id number] - LIPID Order Info: [id number] - MG Performed By: #### L 500.4100, L501.5200, L501.9985, L500.4050, L100.0100 #### [facility] [address] [place], [address] MCV (mean corpuscular volume ) determinationOrdered By: Ariadna Roth on 10-18-2024 MCV (RBC) [Entitic vol] 89.5 fL 80-94 [facility] Magnesiumon 10-18-2024 Magnesium [Mass/Vol] 2.0 mg/dL Normal 1.5-2.2 [facility] Comment on above: Order Comment: Order Date: 10/18/24 Order Info: [id number] - CMP Order Info: [id number] - LIPID Order Info: [id number] - MG Performed By: #### L 500.4100, L501.5200, L501.9985, L500.4050, L100.0100 #### [facility] [address] [place], [address] Magnesium measurement (mass/ volume)Ordered By: Ariadna Roth on 10-18-2024 Magnesium (Unsp spec) [Mass/Vol] 2.0 mg/dL 1.5-2.2 [facility] Mean corpuscular hemoglobin (MCH) determinationOrdered By: Ariadna Roth on 10-18-2024 MCH (RBC) [Entitic mass] 30.3 pg 27.0-32.0 [facility] Mean corpuscular hemoglobin concentration (MCHC) determinationOrdered By: Ariadna Roth on 10-18-2024 MCHC (RBC) [Mass/Vol] 33.9 g/dL 32-36 [facility] Mean platelet volume determi nationOrdered By: Ariadna Roth on 10-18-2024 Platelet mean volume (Bld) [Entitic vol] 9.9 fL 6.2-12.0 [facility] Microscopic analysis of urin e for red blood cells (RBC)Ordered By: Ariadna Roth on 10-18-2024 Microscopic analysis of urine for red blood cells (RBC) 0 SEEN /hpf 0-5 [facility] Monocyte percentageOrdered B y: Ariadna Roth on 10-18-2024 Monocytes/100 WBC (Bld) 6.0 % 0-10 [facility] Mucus LM Ql (Urine sed)Order ed By: Ariadna Roth on 10-18-2024 Mucus Ql (Urine sed) 1+ /hpf [facility] Neutrophil percentageOrdered By: Ariadna Roth on 10-18-2024 Neutrophils/100 WBC (Bld) 64.0 % 47-70 [facility] Nitrite Test strip Ql (U)Ord ered By: Ariadna Roth on 10-18-2024 Nitrite Ql (U) Negative Negative [facility] Nucleated red blood cell per centageOrdered By: Ariadna Roth on 10-18-2024 Nucleated RBC/100 WBC (Bld) [Ratio] 0 % 0-5 [facility] Platelet countOrdered By: Constance Roth on 10-18-2024 Platelets (Bld) [#/Vol] 332 10*3/uL 150-450 [facility] Potassium measurement (mass/ volume)Ordered By: Ariadna Roth on 10-18-2024 Potassium (Unsp spec) [Mass/Vol] 4.0 mmol/L 3.3-5.1 [facility] Protein Test strip Ql (U)Ord ered By: Ariadna Roth on 10-18-2024 Protein Ql (U) 15 mg/dl High Negative [facility] RBC Auto (Bld) [#/Vol]Ordere d By: Ariadna Roth on 10-18-2024 RBC (Bld) [#/Vol] 4.75 10*6/uL 4.6-6.2 [facility] Screening total cholesterol/ high density lipoprotein (HDL) cholesterol ratioOrdered By: Ariadna Roth on 10-18-2024 Cholesterol.total/Elvie sterol in HDL [Mass ratio] 4.25 {ratio} [facility] Serum creatinine measurement (mass/volume)Ordered By: Ariadna Roth on 10-18-2024 Creatinine [Mass/Vol] 1.14 mg/dL Normal 0.70-1.20 [facility] Comment on above: Order Comment: Order Date: 10/18/24 Order Info: [id number] - CMP Order Info: [id number] - LIPID Order Info: [id number] - MG Performed By: #### L 500.4100, L501.5200, L501.9985, L500.4050, L100.0100 #### [facility] [address] [place], [address] Serum globulin measurementOr dered By: Ariadna Roth on 10-18-2024 Globulin (S) [Mass/Vol] 2.9 g/dL Normal 2.2-4.2 [facility] Comment on above: Order Comment: Order Date: 10/18/24 Order Info: [id number] - CMP Order Info: [id number] - LIPID Order Info: [id number] - MG Performed By: #### L 500.4100, L501.5200, L501.9985, L500.4050, L100.0100 #### [facility] [address] [place], [address] Serum glucose measurement (m ass/volume)Ordered By: Ariadna Roth on 10-18-2024 Glucose [Mass/Vol] 95 mg/dL Normal 70-99 [facility] Comment on above: Order Comment: Order Date: 10/18/24 Order Info: [id number] - CMP Order Info: [id number] - LIPID Order Info: [id number] - MG Performed By: #### L 500.4100, L501.5200, L501.9985, L500.4050, L100.0100 #### [facility] [address] [place], [address] Serum or plasma alanine greene otransferase (ALT) measurementOrdered By: Ariadna Roth on 10-18-2024 ALT [Catalytic activity/Vol] 42 U/L Normal <=46 [facility] Comment on above: Order Comment: Order Date: 10/18/24 Order Info: [id number] - CMP Order Info: [id number] - LIPID Order Info: [id number] - MG Performed By: #### L 500.4100, L501.5200, L501.9985, L500.4050, L100.0100 #### [facility] [address] [place], [address] Serum or plasma albumin paulino urement (mass/volume)Ordered By: Ariadna Roth on 10-18-2024 Albumin [Mass/Vol] 4.4 g/dL Normal 3.5-5.0 [facility] Comment on above: Order Comment: Order Date: 10/18/24 Order Info: [id number] - CMP Order Info: [id number] - LIPID Order Info: [id number] - MG Performed By: #### L 500.4100, L501.5200, L501.9985, L500.4050, L100.0100 #### [facility] [address] [place], [address] Serum or plasma albumin/glob ulin mass ratioOrdered By: Ariadna Roth on 10-18-2024 Albumin/Globulin [Mass ratio] 1.5 {ratio} Normal 0.9-2.4 [facility] Comment on above: Order Comment: Order Date: 10/18/24 Order Info: [id number]- - CMP Order Info: [id number] - LIPID Order Info: [id number] - MG Performed By: #### L 500.4100, L501.5200, L501.9985, L500.4050, L100.0100 #### [facility] [address] [place], [address] Serum or plasma alkaline marce sphatase measurementOrdered By: Ariadna Roth on 10-18-2024 ALP [Catalytic activity/Vol] 67 U/L 40-129 [facility] Serum or plasma calcium paulino urement (mass/volume)Ordered By: Ariadna Roth on 10-18-2024 Calcium [Mass/Vol] 9.5 mg/dL Normal 7.6-11.0 [facility] Comment on above: Order Comment: Order Date: 10/18/24 Order Info: [id number] - CMP Order Info: [id number] - LIPID Order Info: [id number] - MG Performed By: #### L 500.4100, L501.5200, L501.9985, L500.4050, L100.0100 #### [facility] [address] [place], [address] Serum or plasma cholesterol in HDL measurement (mass/volume)Ordered By: Ariadna Roth on 10-18-2024 Cholesterol in HDL [Mass/Vol] 37 mg/dL Low [facility] Comment on above: National Cholesterol Education Program (NCEP) guidelines:<40 mg/dL: Low HDL-cholesterol (major risk factor for CHD)>= 60 mg/dL: High HDL-cholesterol (negative risk factor for CHD)HDL-cholesterol is affected by a number of factors, e.g. smoking, exercise, hormones, sex and age. Order Comment: Order Date: 10/18/24 Order Info: [id number] - CMP Order Info: [id number] - LIPID Order Info: [id number] - MG Result Comment: Rubina onal Cholesterol Education Program (NCEP) guidelines: <40 mg/dL: Low HDL-cholesterol (major risk factor for CHD) >= 60 mg/dL: High HDL-cholesterol (negative risk factor for CHD) HDL-cholesterol is affected by a number of factors, e.g. smoking, exercise, hormones, sex and age. Performed By: #### L 500.4100, L501.5200, L501.9985, L500.4050, L100.0100 #### [facility] [address] [place], [address] Serum or plasma cholesterol measurement (mass/volume)Ordered By: Ariadna Roth on 10-18-2024 Cholesterol [Mass/Vol] 155 mg/dL Normal <=200 [facility] Comment on above: Cholesterol level, D esirable <200 mg/dLBorderline high cholesterol 200-239 mg/dLHigh cholesterol >=240 mg/dLRecommendations of the NCEP Adult Treatment Panel for the following risk-cutoff thresholds for the [place] population. Order Comment: Order Date: 10/18/24 Order Info: [id number] - CMP Order Info: [id number] - LIPID Order Info: [id number] - MG Result Comment: Chol esterol level, Desirable <200 mg/dL Borderline high cholesterol 200-239 mg/dL High cholesterol >=240 mg/dL Recommendations of the NCEP Adult Treatment Panel for the following risk-cutoff thresholds for the [place] population. Performed By: #### L 500.4100, L501.5200, L501.9985, L500.4050, L100.0100 #### [facility] [address] [place], [address] Serum or plasma urea nitroge n measurement (mass/volume)Ordered By: Ariadna Roth on 10-18-2024 Urea nitrogen [Mass/Vol] 13 mg/dL Normal 4-19 [facility] Comment on above: Order Comment: Order Date: 10/18/24 Order Info: [id number] - CMP Order Info: [id number] - LIPID Order Info: [id number] - MG Performed By: #### L 500.4100, L501.5200, L501.9985, L500.4050, L100.0100 #### [facility] [address] [place], [place], [address] Sodium levelOrdered By: Ariadna Roth on 10-18-2024 Sodium [Moles/Vol] 141 mmol/L Normal 133-145 [facility] Comment on above: Order Comment: Order Date: 10/18/24 Order Info: [id number] - CMP Order Info: [id number] - LIPID Order Info: - MG Performed By: #### L 500.4100, L501.5200, L501.9985, L500.4050, L100.0100 #### [facility] [address] [place], [place], [address] Squamous epithelial cells de tection in urine sediment by light microscopyOrdered By: Ariadna Roth on 10-18-2024 Epithelial cells.squamous LM Ql (Urine sed) 0-5 SEEN /hpf 0-5 [facility] Total proteinOrdered By: Hollis Roth on 10-18-2024 Protein [Mass/Vol] 7.3 g/dL 5.9-8.4 [facility] Triglycerides measurementOrd ered By: Ariadna Roth on 10-18-2024 Triglyceride [Mass/Vol] 94 mg/dL Normal [facility] Comment on above: The drugs N-Acetylcy steine and Metamizole may falsely depress this assay. Normal range: <150 mg/dLBorderline High: 150-199 mg/dLHigh: 200-499 mg/dLVery High: >500 mg/dL Order Comment: Order Date: 10/18/24 Order Info: [id number] - CMP Order Info: [id number] - LIPID Order Info: [id number] - MG Result Comment: The drugs N-Acetylcysteine and Metamizole may falsely depress this assay. Normal range: <150 mg/dL Borderline High: 150-199 mg/dL High: 200-499 mg/dL Very High: >500 mg/dL Performed By: #### L 500.4100, L501.5200, L501.9985, L500.4050, L100.0100 #### [facility] [address] [place], [address] Urinalysis, Completeon 10-18 Mucus Ql (Urine sed) 1+ /hpf Normal [facility] Comment on above: Order Comment: CLEAN CATCH Performed By: #### L 400.0001, L506.1001 #### [facility] [address] [place], [address] EPI,SQUAMOUS 0-5 SEEN Normal 0-5 [facility] Comment on above: Order Comment: CLEAN CATCH Performed By: #### L 400.0001, L506.1001 #### [facility] [address] [place], [address] WBC 0-5 SEEN Normal 0-5 [facility] Comment on above: Order Comment: CLEAN CATCH Performed By: #### L 400.0001, L506.1001 #### [facility] [address] [place], [address] BACTERIA 0 SEEN Normal None Seen [facility] Comment on above: Order Comment: CLEAN CATCH Performed By: #### L 400.0001, L506.1001 #### [facility] [address] [place], [address] RBC 0 SEEN Normal 0-5 [facility] Comment on above: Order Comment: CLEAN CATCH Performed By: #### L 400.0001, L506.1001 #### [facility] [address] [place], [place], [address] Urine clarityOrdered By: Hollis Roth on 10-18-2024 Clarity (U) Clear Clear [facility] Urine color determinationOrd ered By: Ariadna Roth on 10-18-2024 Color (U) Yellow Yellow [facility] Urine glucose detectionOrder ed By: Ariadna Roth on 10-18-2024 Glucose Ql (U) Normal mg/dl Normal [facility] Urine leukocyte esterase det ection by dipstickOrdered By: Ariadna Roth on 10-18-2024 Leukocyte esterase Test strip Ql (U) Negative Negative [facility] Urine pHOrdered By: Ariadna coughlin on 10-18-2024 pH (U) 6.0 [pH] 5.0 - 8.0 [facility] Urine sediment bacteria coun t by microscopy (number/high power field)Ordered By: Ariadna Roth on 10-18-2024 Bacteria LM.HPF (Urine sed) [#/Area] 0 /[HPF] None Seen [facility] Urine specific gravity measu rementOrdered By: Ariadna Roth on 10-18-2024 Specific gravity (U) [Rel density] 1.025 1.002-1.030 [facility] Urine urobilinogen measureme ntOrdered By: Ariadna Roth on 10-18-2024 Urobilinogen Ql (U) Normal mg/dl Normal [facility] Vitamin D,25 Hydroxyon 10-18 Vitamin D 25-OH 42.1 ng/mL Normal 30-100 [facility] Comment on above: Order Comment: Order Date: 10/18/24 Order Info: [id number] - CMP Order Info: [id number] - LIPID Order Info: [id number] - MG Result Comment: Thalia min D Status Deficiency: <20 ng/mL (50nmol/L) Insufficiency: 20-30 ng/mL (50-75 nmol/L) Sufficiency: 30-100 ng/mL (75-250 nmol/L) Toxicity: >100 ng/mL (>250 nmol/L) Performed By: #### L 400.0001, L506.1001 #### [facility] [address] [place], [address] White blood cell (WBC) count Ordered By: Ariadna Roth on 10-18-2024 WBC (Bld) [#/Vol] 7.6 10*3/uL 4.4-11.0 [facility] White blood cell countOrdere d By: Ariadna Roth on 10-18-2024 White blood cell count 0-5 SEEN /hpf 0-5 [facility] Vitamin D,25 Hydroxyon 03-22 Vitamin D 25-OH 23.4 ng/mL Normal [facility] Comment on above: Result Comment: Thalia min D 25(OH) Status Range Deficiency <20 ng/mL (50nmol/L) Insufficiency 20 - 30 ng/mL (50 - 75 nmol/L) Sufficiency 30 - 100 ng/mL (75 - 250 nmol/L) Toxicity >100 ng/mL (>250 nmol/L) Performed By: #### L 500.4100, L501.5200, L501.9985, L500.4050, L100.0100 #### [facility] [address] [place], [address] CBC W/Diff, Automatedon 03-05 Absolute Lymph 3.02 X10 3/uL Normal 0.83-4.51 [facility] Comment on above: Performed By: #### L 500.4100, L100.0100, L500.4050, L506.1000, L400.0001, L501.9985, L501.9910 #### [facility] [address] [place], [address] Absolute Neut 5.6 X10 3/uL Normal 2.0-7.7 [facility] Comment on above: Performed By: #### L 500.4100, L100.0100, L500.4050, L506.1000, L400.0001, L501.9985, L501.9910 #### [facility] [address] [place], [address] Basophils/100 WBC (Bld) 0.3 % Normal 0-1 [facility] Comment on above: Performed By: #### L 500.4100, L100.0100, L500.4050, L506.1000, L400.0001, L501.9985, L501.9910 #### [facility] [address] [place], [address] Eosinophils/100 WBC (Bld) 3.2 % Normal 0-5 [facility] Comment on above: Performed By: #### L 500.4100, L100.0100, L500.4050, L506.1000, L400.0001, L501.9985, L501.9910 #### [facility] [address] [place], [address] Erythrocyte distribution width (RBC) [Ratio] 13.2 % Normal 11.6-14.6 [facility] Comment on above: Performed By: #### L 500.4100, L100.0100, L500.4050, L506.1000, L400.0001, L501.9985, L501.9910 #### [facility] [address] [place], [address] Hematocrit (Bld) [Volume fraction] 44.4 % Normal 40-54 [facility] Comment on above: Performed By: #### L 500.4100, L100.0100, L500.4050, L506.1000, L400.0001, L501.9985, L501.9910 #### [facility] [address] [place], [address] Hemoglobin (Bld) [Mass/Vol] 14.8 g/dL Normal 13.0-16.5 [facility] Comment on above: Performed By: #### L 500.4100, L100.0100, L500.4050, L506.1000, L400.0001, L501.9985, L501.9910 #### [facility] [address] [place], [address] IG% 0.200 Normal 0.0-0.9 [facility] Comment on above: Result Comment: IG% - Immature Granulocytes (promyelocytes, myelocytes and metamyelocytes) > 1% indicates that a LEFT SHIFT is Present. Performed By: #### L 500.4100, L100.0100, L500.4050, L506.1000, L400.0001, L501.9985, L501.9910 #### [facility] [address] [place], [address] Lymphocytes/100 WBC (Bld) 31.7 % Normal 19-41 [facility] Comment on above: Performed By: #### L 500.4100, L100.0100, L500.4050, L506.1000, L400.0001, L501.9985, L501.9910 #### [facility] [address] [place], [address] MCH (RBC) [Entitic mass] 30.1 pg Normal 27.0-32.0 [facility] Comment on above: Performed By: #### L 500.4100, L100.0100, L500.4050, L506.1000, L400.0001, L501.9985, L501.9910 #### [facility] [address] [place], [address] MCHC (RBC) [Mass/Vol] 33.3 g/dL Normal 32-36 [facility] Comment on above: Performed By: #### L 500.4100, L100.0100, L500.4050, L506.1000, L400.0001, L501.9985, L501.9910 #### [facility] [address] [place], [address] MCV (RBC) [Entitic vol] 90.4 fL Normal 80-94 [facility] Comment on above: Performed By: #### L 500.4100, L100.0100, L500.4050, L506.1000, L400.0001, L501.9985, L501.9910 #### [facility] [address] [place], [address] Monocytes/100 WBC (Bld) 6.2 % Normal 0-10 [facility] Comment on above: Performed By: #### L 500.4100, L100.0100, L500.4050, L506.1000, L400.0001, L501.9985, L501.9910 #### [facility] [address] [place], [address] Neutrophils/100 WBC (Bld) 58.4 % Normal 47-70 [facility] Comment on above: Performed By: #### L 500.4100, L100.0100, L500.4050, L506.1000, L400.0001, L501.9985, L501.9910 #### [facility] [address] [place], [address] Nucleated RBC (Bld) [#/Vol] 0 10*3/uL Normal 0-5 [facility] Comment on above: Performed By: #### L 500.4100, L100.0100, L500.4050, L506.1000, L400.0001, L501.9985, L501.9910 #### [facility] [address] [place], [address] Platelet mean volume (Bld) [Entitic vol] 10.2 fL Normal 6.2-12.0 [facility] Comment on above: Performed By: #### L 500.4100, L100.0100, L500.4050, L506.1000, L400.0001, L501.9985, L501.9910 #### [facility] [address] [place], [address] Platelets (Bld) [#/Vol] 336 10*3/uL Normal 150-450 [facility] Comment on above: Performed By: #### L 500.4100, L100.0100, L500.4050, L506.1000, L400.0001, L501.9985, L501.9910 #### [facility] [address] [place], [address] RBC (Bld) [#/Vol] 4.91 10*6/uL Normal 4.6-6.2 [facility] Comment on above: Performed By: #### L 500.4100, L100.0100, L500.4050, L506.1000, L400.0001, L501.9985, L501.9910 #### [facility] [address] [place], [address] RDW SD 43.5 fl Normal 35.1-43.9 [facility] Comment on above: Performed By: #### L 500.4100, L100.0100, L500.4050, L506.1000, L400.0001, L501.9985, L501.9910 #### [facility] [address] [place], [address] WBC (Bld) [#/Vol] 9.5 10*3/uL Normal 4.4-11.0 [facility] Comment on above: Performed By: #### L 500.4100, L100.0100, L500.4050, L506.1000, L400.0001, L501.9985, L501.9910 #### [facility] [address] [place], [address] Comprehensive Metabolic Prof uton 03-21-2024 Albumin [Mass/Vol] 4.0 g/dL Normal 3.2-5.0 [facility] Comment on above: Performed By: #### L 500.4100, L100.0100, L500.4050, L506.1000, L400.0001, L501.9985, L501.9910 #### [facility] [address] [place], [address] Albumin/Globulin [Mass ratio] 1.1 {ratio} Normal 0.9-2.4 [facility] Comment on above: Performed By: #### L 500.4100, L100.0100, L500.4050, L506.1000, L400.0001, L501.9985, L501.9910 #### [facility] [address] [place], [address] ALK P 79 U/L Normal 45-117 [facility] Comment on above: Performed By: #### L 500.4100, L100.0100, L500.4050, L506.1000, L400.0001, L501.9985, L501.9910 #### [facility] [address] [place], [address] ALT [Catalytic activity/Vol] 57 U/L Normal 16-61 [facility] Comment on above: Performed By: #### L 500.4100, L100.0100, L500.4050, L506.1000, L400.0001, L501.9985, L501.9910 #### [facility] [address] [place], [address] AST [Catalytic activity/Vol] 31 U/L Normal 15-37 [facility] Comment on above: Performed By: #### L 500.4100, L100.0100, L500.4050, L506.1000, L400.0001, L501.9985, L501.9910 #### [facility] [address] [place], [address] Bilirubin [Mass/Vol] 0.30 mg/dL Normal 0.20-1.00 [facility] Comment on above: Result Comment: For patients on eltrombopag therapy, use of Dimension [place] TBIL is not recommended. Performed By: #### L 500.4100, L100.0100, L500.4050, L506.1000, L400.0001, L501.9985, L501.9910 #### [facility] [address] [place], [address] BUN/CRE 9.2 RATIO Low 10-20 [facility] Comment on above: Performed By: #### L 500.4100, L100.0100, L500.4050, L506.1000, L400.0001, L501.9985, L501.9910 #### [facility] [address] [place], [address] CA,Total 9.3 mg/dL Normal 8.5-10.1 [facility] Comment on above: Performed By: #### L 500.4100, L100.0100, L500.4050, L506.1000, L400.0001, L501.9985, L501.9910 #### [facility] [address] [place], [address] Chloride [Moles/Vol] 109 mmol/L High 98-107 [facility] Comment on above: Performed By: #### L 500.4100, L100.0100, L500.4050, L506.1000, L400.0001, L501.9985, L501.9910 #### [facility] [address] [place], [address] CO2 [Moles/Vol] 21.0 mmol/L Normal 21.0-32.0 [facility] Comment on above: Performed By: #### L 500.4100, L100.0100, L500.4050, L506.1000, L400.0001, L501.9985, L501.9910 #### [facility] [address] [place], [address] Creatinine [Mass/Vol] 1.30 mg/dL Normal 0.70-1.30 [facility] Comment on above: Result Comment: The validity of the calculated GFR GFRAA in patients over 70 years has not been determined. Clinical correlation is essential. Performed By: #### L 500.4100, L100.0100, L500.4050, L506.1000, L400.0001, L501.9985, L501.9910 #### [facility] [address] [place], [address] EST GFR - AA 74 mL/min Normal >60 [facility] Comment on above: Result Comment: Afri can Thai GFR Calc Performed By: #### L 500.4100, L100.0100, L500.4050, L506.1000, L400.0001, L501.9985, L501.9910 #### [facility] [address] [place], [address] GAP 7 Normal 5-15 [facility] Comment on above: Performed By: #### L 500.4100, L100.0100, L500.4050, L506.1000, L400.0001, L501.9985, L501.9910 #### [facility] [address] [place], [address] GFR/1.73 sq M.predicted among non-blacks MDRD (S/P/Bld) [Vol rate/Area] 61 mL/min/{1.73_m2} Normal >60 [facility] Comment on above: Result Comment: Non- GFR Calc Performed By: #### L 500.4100, L100.0100, L500.4050, L506.1000, L400.0001, L501.9985, L501.9910 #### [facility] [address] [place], [address] Globulin (S) [Mass/Vol] 3.6 g/dL Normal 2.2-4.2 [facility] Comment on above: Performed By: #### L 500.4100, L100.0100, L500.4050, L506.1000, L400.0001, L501.9985, L501.9910 #### [facility] [address] [place], [address] Glucose [Mass/Vol] 100 mg/dL Normal 74-106 [facility] Comment on above: Result Comment: Fast ing Glucose result from 100 to 125 mg/dL suggests IMPAIRED HOMEOSTASIS per A.D.A. criteria. Performed By: #### L 500.4100, L100.0100, L500.4050, L506.1000, L400.0001, L501.9985, L501.9910 #### [facility] [address] [place], [address] Potassium [Moles/Vol] 4.2 mmol/L Normal 3.5-5.1 [facility] Comment on above: Performed By: #### L 500.4100, L100.0100, L500.4050, L506.1000, L400.0001, L501.9985, L501.9910 #### [facility] [address] [place], [address] Sodium [Moles/Vol] 138 mmol/L Normal 136-145 [facility] Comment on above: Performed By: #### L 500.4100, L100.0100, L500.4050, L506.1000, L400.0001, L501.9985, L501.9910 #### [facility] [address] [place], [address] T PROT 7.6 g/dL Normal 6.4-8.2 [facility] Comment on above: Performed By: #### L 500.4100, L100.0100, L500.4050, L506.1000, L400.0001, L501.9985, L501.9910 #### [facility] [address] [place], [address] Urea nitrogen [Mass/Vol] 12 mg/dL Normal 7-18 [facility] Comment on above: Performed By: #### L 500.4100, L100.0100, L500.4050, L506.1000, L400.0001, L501.9985, L501.9910 #### [facility] [address] [place], [address] Hemoglobin A1con 03-21-2024 HbA1c (Bld) [Mass fraction] 5.7 % High 3.8-5.6 [facility] Comment on above: Result Comment: Norm al < 5.7 % Prediabetic 5.7 - 6.4 % Diabetic >or= 6.5 % Please note range changes. Performed By: #### L 500.4100, L501.5200, L501.9985, L500.4050, L100.0100 #### [facility] [address] [place], [address] Lipid Profileon 03-21-2024 Cholesterol [Mass/Vol] 182 mg/dL Normal 200 [facility] Comment on above: Result Comment: <200 mg/dL Desirable 200-240 mg/dL Borderline >240 mg/dL High Risk Performed By: #### L 500.4100, L501.5200, L501.9985, L500.4050, L100.0100 #### [facility] [address] [place], [address] Cholesterol in HDL [Mass/Vol] 33 mg/dL Low [facility] Comment on above: Result Comment: The drugs N-Acetylcysteine and Metamizole may falsely depress this assay. Reference Range HDL <40 mg/dL Low HDL Cholesterol HDL >or= 60 mg/dL High HDL Cholesterol Performed By: #### L 500.4100, L501.5200, L501.9985, L500.4050, L100.0100 #### [facility] [address] [place], [address] Cholesterol in LDL [Mass/Vol] 97 mg/dL Normal 0-130 [facility] Comment on above: Performed By: #### L 500.4100, L501.5200, L501.9985, L500.4050, L100.0100 #### [facility] [address] [place], [address] Cholesterol in VLDL [Mass/Vol] 52 mg/dL High 5-40 [facility] Comment on above: Performed By: #### L 500.4100, L501.5200, L501.9985, L500.4050, L100.0100 #### [facility] [address] [place], [address] Triglyceride [Mass/Vol] 261 mg/dL High [facility] Comment on above: Result Comment: The drugs N-Acetylcysteine and Metamizole may falsely depress this assay. Serum Triglycerides Reference Interval Normal <150 mg/dL Borderline high 150 - 199 mg/dL High 200 - 499 mg/dL Very High > or = 500 mg/dL Performed By: #### L 500.4100, L501.5200, L501.9985, L500.4050, L100.0100 #### [facility] [address] [place], [address] PSA,Total - Annual Screenon 03-21-2024 PSA,TOT SCREEN 0.49 ng/mL Normal 0.00-4.00 [facility] Comment on above: Result Comment: This test was performed using the TPSA assay method for the [employer] chemistry system. Values obtained with different assay methods cannot be used interchangably. When changing PSA assays in the course of monitoring a patient, additional sequential testing should be carried out to confirm baseline values. Performed By: #### L 500.4100, L501.5200, L501.9985, L500.4050, L100.0100 #### [facility] [address] [place], [address] Urinalysis, Completeon 03-21 Mucus Ql (Urine sed) RARE Normal [facility] Comment on above: Order Comment: CLEAN CATCH Performed By: #### L 500.4100, L100.0100, L500.4050, L506.1000, L400.0001, L501.9985, L501.9910 #### [facility] [address] [place], [address] CAST,HYALINE 0-5 SEEN Normal 0-5 [facility] Comment on above: Order Comment: CLEAN CATCH Performed By: #### L 500.4100, L100.0100, L500.4050, L506.1000, L400.0001, L501.9985, L501.9910 #### [facility] [address] [place], [address] EPI,SQUAMOUS 0-5 SEEN Normal 0-5 [facility] Comment on above: Order Comment: CLEAN CATCH Performed By: #### L 500.4100, L100.0100, L500.4050, L506.1000, L400.0001, L501.9985, L501.9910 #### [facility] [address] [place], [address] WBC 0-5 SEEN Normal 0-5 [facility] Comment on above: Order Comment: CLEAN CATCH Performed By: #### L 500.4100, L100.0100, L500.4050, L506.1000, L400.0001, L501.9985, L501.9910 #### [facility] [address] [place], [address] BACTERIA 0 SEEN Normal None Seen [facility] Comment on above: Order Comment: CLEAN CATCH Performed By: #### L 500.4100, L100.0100, L500.4050, L506.1000, L400.0001, L501.9985, L501.9910 #### [facility] [address] [place], [address] RBC 0 SEEN Normal 0-5 [facility] Comment on above: Order Comment: CLEAN CATCH Performed By: #### L 500.4100, L100.0100, L500.4050, L506.1000, L400.0001, L501.9985, L501.9910 #### [facility] [address] [address], [address] MR Wrist - left WO contrasto n 03-14-2024 Impression: Low-grade degenerative changes including tiny subarticular cysts within the scaphoid base and within the proximal trapezoid as well degeneration of the scapholunate ligament without tear. No scapholunate interval widening to suggest high-grade partial or complete tear. Report Dictated on Electronically Signed By: Santy Young MD Electronically Signed Date/Time: 03/14/2024 9:28 AM EDT [facility] [employer] Patient Name: ABRAHAM BLACK : 1970 Exam Date/Time: 03/13/2024 16:47 Procedure: MR WRIST LEFT WO IV CONTRAST Ordering Provider: ALRA WALTER Reason For Exam: [id number] Examination: MRI left wrist Clinical Indication: Pain Comparison: None Findings: Multiplanar multisequence high field strength MRI images were obtained through the left wrist without intravenous gadolinium contrast. Low-grade degenerative changes including tiny subarticular cysts within the scaphoid base and within the proximal trapezoid as well degeneration of the scapholunate ligament without tear. No scapholunate interval widening to suggest high-grade partial or complete tear. No fracture or osseous edema/contusion. The distal radioulnar joint demonstrates no joint effusion. The central and peripheral triangular fibrocartilage complex appears intact. No evidence of tear. The lunotriquetral ligament and interval are intact with no evidence of interval widening. Neutral ulnar variance. The flexor and extensor tendons are intact/unremarkable without tendinopathy, tendon tear or significant tendon tenosynovitis. The carpal tunnel is normal and the median nerve demonstrates no discrete compression. Normal muscle volume and signal intensity. [facility] Santy Young MD - 03/14/2024 Patient Name: ABRAHAM BLACK : 1970 Exam Date/Time: 03/13/2024 16:47 Procedure: MR WRIST LEFT WO IV CONTRAST Ordering Provider: LARA WALTER Reason For Exam: [id number] Examination: MRI left wrist Clinical Indication: Pain Comparison: None Findings: Multiplanar multisequence high field strength MRI images were obtained through the left wrist without intravenous gadolinium contrast. Low-grade degenerative changes including tiny subarticular cysts within the scaphoid base and within the proximal trapezoid as well degeneration of the scapholunate ligament without tear. No scapholunate interval widening to suggest high-grade partial or complete tear. No fracture or osseous edema/contusion. The distal radioulnar joint demonstrates no joint effusion. The central and peripheral triangular fibrocartilage complex appears intact. No evidence of tear. The lunotriquetral ligament and interval are intact with no evidence of interval widening. Neutral ulnar variance. The flexor and extensor tendons are intact/unremarkable without tendinopathy, tendon tear or significant tendon tenosynovitis. The carpal tunnel is normal and the median nerve demonstrates no discrete compression. Normal muscle volume and signal intensity. IMPRESSION: Impression: Low-grade degenerative changes including tiny subarticular cysts within the scaphoid base and within the proximal trapezoid as well degeneration of the scapholunate ligament without tear. No scapholunate interval widening to suggest high-grade partial or complete tear. Report Dictated on Electronically Signed By: Santy Young MD Electronically Signed Date/Time: 03/14/2024 9:28 AM EDT [facility] MR Wrist - left WO contrastO rdered By: Santy Young on 03-14-2024 [facility] [employer] Work Phone: MR Wrist - left WO contrasto n 03-13-2024 Radiology Study observation (narrative) [facility] alth Basophil percentageOrdered B y: Moncho Harrison on 10-03-2023 Basophil percentage 3.2 mg/dL 2.5-4.9 [facility] Chloride [Moles/Vol] 113 mmol/L 98-[address] [facility] [address] [facility] Glucose [Mass/Vol] 94 mg/dL 74-106 [facility] Hemoglobin (Bld) [Mass/Vol] 15.8 g/dL 13.0-16.5 [facility] Potassium [Moles/Vol] 4.1 mmol/L 3.5-5.1 [facility] Sodium [Moles/Vol] 141 mmol/L 136-145 [facility] WBC (Bld) [#/Vol] 7.7 10*3/uL 4.4-11.0 [facility] Determination of erythrocyte mean corpuscular volume (MCV)Ordered By: Moncho Harrison on 10-03-2023 MCV (RBC) [Entitic vol] 89.8 fL 80-94 [facility] Erythrocyte distribution wid th ratioOrdered By: Moncho Harirson on 10-03-2023 Erythrocyte distribution width (RBC) [Ratio] 13.2 % 11.6-14.6 [facility] Erythrocyte distribution wid th standard deviationOrdered By: Moncho Harrison on 10-03-2023 Erythrocyte distribution width (RBC) [Entitic vol] 43.2 fL 35.1-43.9 [facility] Hematocrit Auto (Bld) [Volum e fraction]Ordered By: Moncho Harrison on 10-03-2023 Hematocrit (Bld) [Volume fraction] 46.7 % 40-54 [facility] - Chemistry and C hemistry - challengeOrdered By: Moncho Harrison on 10-03-2023 CO2 [Moles/Vol] 25.0 mmol/L 21.0-32.0 [facility] Urea nitrogen/Creatinine [Mass ratio] 9.2 mg/mg 10-20 [facility] - Hematology and Cell countsOrdered By: Moncho Harrison on 10-03-2023 MCH (RBC) [Entitic mass] 30.4 pg 27.0-32.0 [facility] MCHC (RBC) [Mass/Vol] 33.8 g/dL 32-36 [facility] Platelet mean volume (Bld) [Entitic vol] 10.2 fL 6.2-12.0 [facility] Platelets (Bld) [#/Vol] 284 10*3/uL 150-450 [facility] No Panel InformationOrdered By: Moncho Harrison on 10-03-2023 Estimated GFR (MDRD) Amer 81 mL/min >60 [facility] Comment on above: GFR Calc Estimated GFR (MDRD) Non-Af Amer 67 mL/min >60 [facility] Comment on above: Non- GFR Calc Parathyroid Hormone (Intact) 45.0 pg/mL 18.4-80.1 [facility] Vitamin D 25-Hydroxy 31.0 ng/mL [facility] Comment on above: Vitamin D 25(OH) Sta tus Range Deficiency <20 ng/mL (50nmol/L) Insufficiency 20 - 30 ng/mL (50 - 75 nmol/L) Sufficiency 30 - 100 ng/mL (75 - 250 nmol/L) Toxicity >100 ng/mL (>250 nmol/L) RBC Auto (Bld) [#/Vol]Ordere d By: Moncho Harirson on 10-03-2023 RBC (Bld) [#/Vol] 5.20 10*6/uL 4.6-6.2 [facility] Serum or plasma calcium paulino urement (mass/volume)Ordered By: Moncho Harrison on 10-03-2023 Calcium [Mass/Vol] 9.1 mg/dL 8.5-10.1 [facility] Serum or plasma creatinine m easurement (mass/volume)Ordered By: Moncho Harrison on 10-03-2023 Creatinine [Mass/Vol] 1.20 mg/dL 0.70-1.30 [facility] Comment on above: The validity of the calculated GFR & GFRAA in patients over 70 years has not been determined. Clinical correlation is essential. Serum or plasma urea nitroge n measurement (mass/volume)Ordered By: Moncho Harrison on 10-03-2023 Urea nitrogen [Mass/Vol] 11 mg/dL 7-18 [facility] Thin prep Papanicolaou smear with manual screeningOrdered By: Moncho Harrison on 10-03-2023 Protein (U) [Mass/Vol] 12.5 mg/dL 0.0-11.8 [facility] Thin prep Papanicolaou smear with manual screening 3.9 g/dL 3.2-5.0 [facility] Urine creatinine measurement (mass/volume)Ordered By: Moncho Harrison on 10-03-2023 Creatinine (U) [Mass/Vol] 324.00 mg/dL NO RANGE EST. [facility] Urine protein/creatinine mas s ratioOrdered By: Moncho Harrison on 10-03-2023 Protein/Creatinine (U) [Mass ratio] 39 mg/g CRE 0-200 [facility] - Drug toxicology Ordered By: Chelita Gallego on 07-24-2023 Amphetamines Ql (U) Negative <1000 ng/mL [facility] Benzodiazepines Ql (U) Negative < 200 ng/mL [facility] Cannabinoids Screen Ql (U) Negative < 50 ng/mL [facility] Cocaine Ql (U) Negative < 300 ng/mL [facility] Opiates Ql (U) Positive < 300 ng/mL [facility] No Panel InformationOrdered By: Chelita Gallego on 07-24-2023 MDMA (Ecstasy) Screen Negative < 500 ng/mL [facility] Miscellaneous Test See comment [facility] Comment on above: [id number] 6+OXYCODONE-B UND (ng/mL) DRUG RESULT SCREEN CUTOFF____ Amphetamines,Urine Negative ng/mL 1000 Amphetamine test includes Amphetamine and Methamphetamine.Barbiturates Negative ng/mL 200Benzodiazepines Negative ng/mL 200Cannabinoid Negative ng/mL 20Cocaine (Metab) Negative ng/mL 300Opiates Positive ng/mL 300 Opiates test includes Codeine, Morphine, Hydromorphone, Hydrocodone. Codeine Negative 300 Morphine Positive Morphine Conf,MS,UR >3000 ng/mL 300 Hydromorphone Negative 300 Hydrocodone Negative 300Oxycodone/Oxymorphone,Urine Negative ng/mL 300 Test includes Oxycodone and Oxymorphone. TESTING PERFORMED AT [facility]. ORIGINAL REPORT ON FILE IN LAB CONTAINS ADDITIONAL TEST SITE INFORMATION. Urine Barbiturates Screen Negative < 200 ng/mL [facility] Urine Drug Screen Comment [facility] Comment on above: CONFIRMATORY TESTING FOR ALL POSITIVE URINE DRUG SCREENRESULTS WILL ONLY BE SENT OUT UPON PHYSICIAN ORDER. VISTA Urine Drug Screen methods provide only preliminaryanalytical test results. A more specific alternate chemicalmethod must be used in order to obtain a confirmedanalytical result. Gas chromatography/mass spectrometery(GC/MS) is the preferred confirmatory method. Clinicalconsideration and professional judgement should be appliedto any drug of abuse test result, particularly whenpreliminary positive results are used. URINE TCA TESTING MUST BE ORDERED SEPARATELY. USE TESTMNEMONIC: [facility] Urine Methadone Screen Negative < 300 ng/mL [facility] Urine phencyclidine (PCP) de tectionOrdered By: Chelita Gallego on 07-24-2023 Phencyclidine Ql (U) Negative < 25 ng/mL [facility] Whole blood hemoglobin A1c/t otal hemoglobin ratio (mass fraction)Ordered By: Ariadna Roth on 07-11-2023 HbA1c (Bld) [Mass fraction] 5.7 % 3.8-5.6 [facility] Comment on above: Normal < 5.7 % Predi abetic 5.7 - 6.4 % Diabetic >or= 6.5 % Please note range changes. Absolute lymphocyte countOrd ered By: Ariadna Roth on 07-07-2023 Lymphocytes Auto (Unsp spec) [#/Vol] 2.01 10*3/uL 0.83-4.51 [facility] Automated lymphocyte count a s percentage of total leukocytesOrdered By: Ariadna Roth on 07-07-2023 Lymphocytes/100 WBC Auto (Unsp spec) 28.8 % 19-41 [facility] Basophil percentageOrdered B y: Ariadna Roth on 07-07-2023 Basophils/100 WBC (Bld) 0.4 % 0-1 [facility] Bilirubin [Mass/Vol] 0.40 mg/dL 0.20-1.00 [facility] Comment on above: For patients on eltr ombopag therapy, use of Dimension [place] TBIL is not recommended. Chloride [Moles/Vol] 111 mmol/L 98-107 [facility] Cholesterol [Mass/Vol] 193 mg/dL <200 [facility] Comment on above: <200 mg/dL Desirable 200-240 mg/dL Borderline >240 mg/dL High Risk Eosinophils/100 WBC (Bld) 2.4 % 0-5 [facility] Glucose [Mass/Vol] 106 mg/dL 74-106 [facility] Comment on above: Fasting Glucose resu lt from 100 to 125 mg/dL suggests IMPAIRED HOMEOSTASIS per A.D.A. criteria. Hemoglobin (Bld) [Mass/Vol] 15.3 g/dL 13.0-16.5 [facility] Monocytes/100 WBC (Bld) 6.7 % 0-10 [facility] Neutrophils (Bld) [#/Vol] 4.3 10*3/uL 2.0-7.7 [facility] Neutrophils/100 WBC (Bld) 61.6 % 47-70 [facility] Potassium [Moles/Vol] 4.0 mmol/L 3.5-5.1 [facility] Protein [Mass/Vol] 7.5 g/dL 6.4-8.2 [facility] Sodium [Moles/Vol] 138 mmol/L 136-145 [facility] Triglyceride [Mass/Vol] 247 mg/dL <199 [facility] Comment on above: The drugs N-Acetylcy steine and Metamizole may falsely depress this assay.Serum Triglycerides Reference Interval Normal <150 mg/dL Borderline high 150 - 199 mg/dL High 200 - 499 mg/dL Very High > or = 500 mg/dL WBC (Bld) [#/Vol] 7.0 10*3/uL 4.4-11.0 [facility] Bilirubin Test strip Ql (U)O rdered By: Airadna Roth on 07-07-2023 Bilirubin Ql (U) Negative Negative [facility] Determination of erythrocyte mean corpuscular volume (MCV)Ordered By: Ariadna Roth on 07-07-2023 MCV (RBC) [Entitic vol] 90.2 fL 80-94 [facility] Erythrocyte distribution wid th ratioOrdered By: Ariadna Roth on 07-07-2023 Erythrocyte distribution width (RBC) [Ratio] 13.0 % 11.6-14.6 [facility] Erythrocyte distribution wid th standard deviationOrdered By: Ariadna Roth on 07-07-2023 Erythrocyte distribution width (RBC) [Entitic vol] 43.0 fL 35.1-43.9 [facility] Hematocrit Auto (Bld) [Volum e fraction]Ordered By: Ariadna Roth on 07-07-2023 Hematocrit (Bld) [Volume fraction] 47.2 % 40-54 [facility] Immature granulocytes/100 WB C Auto (Bld)Ordered By: Ariadna Roth on 07-07-2023 Immature granulocytes/100 WBC (Bld) 0.100 % 0.0-0.9 [facility] Comment on above: IG% - Immature Granu locytes (promyelocytes, myelocytes and metamyelocytes) > 1% indicates that a LEFT SHIFT is Present. Ketones Test strip Ql (U)Ord ered By: Ariadna Roth on 07-07-2023 Ketones Ql (U) 5 mg/dl Negative [facility] - Chemistry and C hemistry - challengeOrdered By: Ariadna Roth on 07-07-2023 Albumin/Globulin [Mass ratio] 1.1 {ratio} 0.9-2.4 [facility] ALP [Catalytic activity/Vol] 79 U/L 45-117 [facility] ALT [Catalytic activity/Vol] 61 U/L 16-61 [facility] Cholesterol in HDL (Body fld) [Mass/Vol] 33 mg/dL >40 [facility] Comment on above: The drugs N-Acetylcy steine and Metamizole may falsely depress this assay. Reference Range HDL <40 mg/dL Low HDL Cholesterol HDL >or= 60 mg/dL High HDL Cholesterol Cholesterol in LDL (Body fld) [Moles/Vol] 111 mg/dL 0-130 [facility] Cholesterol in VLDL Calc [Moles/Vol] 49 mg/dL 5-40 [facility] CO2 [Moles/Vol] 24.0 mmol/L 21.0-32.0 [facility] Globulin (S) [Mass/Vol] 3.6 g/dL 2.2-4.2 [facility] Magnesium [Mass/Vol] 2.2 mg/dL 1.6-2.6 [facility] Urea nitrogen/Creatinine [Mass ratio] 10.9 mg/mg 10-20 [facility] - Hematology and Cell countsOrdered By: Ariadna Roth on 07-07-2023 MCH (RBC) [Entitic mass] 29.3 pg 27.0-32.0 [facility] MCHC (RBC) [Mass/Vol] 32.4 g/dL 32-36 [facility] Nucleated RBC/100 WBC (Bld) [Ratio] 0 % 0-5 [facility] Platelets (Bld) [#/Vol] 301 10*3/uL 150-450 [facility] Nitrite Test strip Ql (U)Ord ered By: Ariadna Roth on 07-07-2023 Nitrite Ql (U) Negative Negative [facility] No Panel InformationOrdered By: Ariadna Roth on 07-07-2023 Estimated GFR (MDRD) Amer 82 mL/min >60 [facility] Comment on above: GFR Calc Estimated GFR (MDRD) Non-Af Amer 68 mL/min >60 [facility] Comment on above: Non- GFR Calc Vitamin D 25-Hydroxy 23.4 ng/mL [facility] Comment on above: Vitamin D 25(OH) Sta tus Range Deficiency <20 ng/mL (50nmol/L) Insufficiency 20 - 30 ng/mL (50 - 75 nmol/L) Sufficiency 30 - 100 ng/mL (75 - 250 nmol/L) Toxicity >100 ng/mL (>250 nmol/L) Platelet mean volume Rene-Ec ker (Bld) [Entitic vol]Ordered By: Ariadna Roth on 07-07-2023 Platelet mean volume (Bld) [Entitic vol] 10.2 fL 6.2-12.0 [facility] Protein Test strip Ql (U)Ord ered By: Ariadna Roth on 07-07-2023 Protein Ql (U) Negative Negative [facility] RBC Auto (Bld) [#/Vol]Ordere d By: Ariadna Roth on 07-07-2023 RBC (Bld) [#/Vol] 5.23 10*6/uL 4.6-6.2 [facility] Serum or plasma calcium paulino urement (mass/volume)Ordered By: Ariadna Roth on 07-07-2023 Calcium [Mass/Vol] 9.2 mg/dL 8.5-10.1 [facility] Serum or plasma creatinine m easurement (mass/volume)Ordered By: Ariadna Roth on 07-07-2023 Creatinine [Mass/Vol] 1.19 mg/dL 0.70-1.30 [facility] Comment on above: The validity of the calculated GFR & GFRAA in patients over 70 years has not been determined. Clinical correlation is essential. Serum or plasma thyroid stim ulating hormone (TSH) measurement (units/volume)Ordered By: Ariadna Roth on 07-07-2023 TSH Qn 0.98 uIU/mL 0.358-3.74 [facility] Serum or plasma urea nitroge n measurement (mass/volume)Ordered By: Ariadna Roth on 07-07-2023 Urea nitrogen [Mass/Vol] 13 mg/dL 7-18 [facility] Thin prep Papanicolaou smear with manual screeningOrdered By: Ariadna Roth on 07-07-2023 Thin prep Papanicolaou smear with manual screening 3.9 g/dL 3.2-5.0 [facility] Thin prep Papanicolaou smear with manual screening 29 U/L 15-37 [facility] Thin prep Papanicolaou smear with manual screening 3 5-15 [facility] Urine blood detectionOrdered By: Ariadna Roth on 07-07-2023 RBC Ql (U) Negative Negative [facility] Urine clarityOrdered By: Hollis Roth on 07-07-2023 Clarity (U) Clear Clear [facility] Urine color determinationOrd ered By: Ariadna Roth on 07-07-2023 Color (U) Yellow Yellow [facility] Urine glucose detectionOrder ed By: Ariadna Rtoh on 07-07-2023 Glucose Ql (U) Normal mg/dl Normal [facility] Urine leukocyte esterase det ection by dipstickOrdered By: Ariadna Roth on 07-07-2023 Leukocyte esterase Test strip Ql (U) Negative Negative [facility] Urine pHOrdered By: Ariadna coughlin on 07-07-2023 pH (U) 7.0 [pH] 5.0 - 8.0 [facility] Urine specific gravity measu rementOrdered By: Ariadna Roth on 07-07-2023 Specific gravity (U) [Rel density] 1.010 1.002-1.030 [facility] Urine urobilinogen measureme ntOrdered By: Ariadna Roth on 07-07-2023 Urobilinogen Ql (U) Normal mg/dl Normal [facility] Absolute lymphocyte countOrd ered By: Ariadna Roth on 06-16-2023 Lymphocytes Auto (Unsp spec) [#/Vol] 3.60 10*3/uL 0.83-4.51 [facility] Basophil percentageOrdered B y: Ariadna Roth on 06-16-2023 Basophils/100 WBC (Bld) 0.3 % 0-1 [facility] Bilirubin [Mass/Vol] 0.30 mg/dL 0.20-1.00 [facility] Comment on above: For patients on eltr ombopag therapy, use of Dimension [place] TBIL is not recommended. Chloride [Moles/Vol] 112 mmol/L 98-107 [facility] Eosinophils/100 WBC (Bld) 2.4 % 0-5 [facility] Glucose [Mass/Vol] 89 mg/dL 74-106 [facility] Neutrophils (Bld) [#/Vol] 5.2 10*3/uL 2.0-7.7 [facility] Neutrophils/100 WBC (Bld) 53.6 % 47-70 [facility] Potassium [Moles/Vol] 4.1 mmol/L 3.5-5.1 [facility] Protein [Mass/Vol] 8.0 g/dL 6.4-8.2 [facility] Sodium [Moles/Vol] 140 mmol/L 136-145 [facility] WBC (Bld) [#/Vol] 9.7 10*3/uL 4.4-11.0 [facility] Blood erythrocytes count (nu mber/volume)Ordered By: Ariadna Roth on 06-16-2023 RBC (Bld) [#/Vol] 5.46 10*6/uL 4.6-6.2 [facility] Blood hemoglobin measurement (mass/volume)Ordered By: Ariadna Roth on 06-16-2023 Hemoglobin (Bld) [Mass/Vol] 16.3 g/dL 13.0-16.5 [facility] Blood lymphocytes/100 leukoc ytesOrdered By: Ariadna Roth on 06-16-2023 Lymphocytes/100 WBC (Bld) 37.0 % 19-41 [facility] Blood monocytes/100 leukocyt esOrdered By: Ariadna Roth on 06-16-2023 Monocytes/100 WBC (Bld) 6.4 % 0-10 [facility] Blood platelet mean volumeOr dered By: Ariadna Roth on 06-16-2023 Platelet mean volume (Bld) [Entitic vol] 10.9 fL 6.2-12.0 [facility] Culture, urineOrdered By: Constance Roth on 06-16-2023 Bacteria identified Cx Nom (U) Culture exhibits no growth. [facility] Bacteria identified Cx Nom (U) Culture exhibits no growth. [facility] Determination of erythrocyte mean corpuscular volume (MCV)Ordered By: Ariadna Roth on 06-16-2023 MCV (RBC) [Entitic vol] 91.6 fL 80-94 [facility] Hematocrit Auto (Bld) [Volum e fraction]Ordered By: Ariadna Roth on 06-16-2023 Hematocrit (Bld) [Volume fraction] 50.0 % 40-54 [facility] Laboratory - Chemistry and C hemistry - challengeOrdered By: Ariadna Roth on 06-16-2023 ALP [Catalytic activity/Vol] 77 U/L 45-117 [facility] ALT [Catalytic activity/Vol] 69 U/L 16-61 [facility] CO2 [Moles/Vol] 21.0 mmol/L 21.0-32.0 [facility] Globulin (S) [Mass/Vol] 3.7 g/dL 2.2-4.2 [facility] Urea nitrogen/Creatinine [Mass ratio] 12.4 mg/mg 10-20 [facility] Laboratory - Hematology and Cell countsOrdered By: Ariadna Roth on 06-16-2023 Erythrocyte distribution width (RBC) [Entitic vol] 44.2 fL 35.1-43.9 [facility] Erythrocyte distribution width (RBC) [Ratio] 13.2 % 11.6-14.6 [facility] Immature granulocytes/100 WBC (Bld) 0.300 % 0.0-0.9 [facility] Comment on above: IG% - Immature Granu locytes (promyelocytes, myelocytes and metamyelocytes) > 1% indicates that a LEFT SHIFT is Present. MCH (RBC) [Entitic mass] 29.9 pg 27.0-32.0 [facility] Nucleated RBC/100 WBC (Bld) [Ratio] 0 % 0-5 [facility] MCHC Auto (RBC) [Mass/Vol]Or dered By: Ariadna Roth on 06-16-2023 MCHC (RBC) [Mass/Vol] 32.6 g/dL 32-36 [facility] No Panel InformationOrdered By: Ariadna Roth on 06-16-2023 Estimated GFR (MDRD) Amer 80 mL/min >60 [facility] Comment on above: GFR Calc Estimated GFR (MDRD) Non-Af Amer 66 mL/min >60 [facility] Comment on above: Non- GFR Calc Platelets bldOrdered By: Hollis Roth on 06-16-2023 Platelets (Bld) [#/Vol] 280 10*3/uL 150-450 [facility] Serum or plasma C reactive p rotein measurement (mass/volume)Ordered By: Ariadna Roth on 06-16-2023 CRP [Mass/Vol] mg/L 0.0-3.0 [facility] Comment on above: C-Reactive Protein ( CRP) provides useful information for thediagnosis, therapy and monitoring of inflammatory processesand associated diseases. For the evaluation of Relative Riskfor Cardiovascular Disease, a High Sensitivity CRP (HSCRP)should be ordered. Serum or plasma albumin paulino urement (mass/volume)Ordered By: Ariadna Roth on 06-16-2023 Albumin [Mass/Vol] 4.3 g/dL 3.2-5.0 [facility] Serum or plasma albumin/glob ulin mass ratioOrdered By: Ariadna Roth on 06-16-2023 Albumin/Globulin [Mass ratio] 1.2 {ratio} 0.9-2.4 [facility] Serum or plasma calcium paulino urement (mass/volume)Ordered By: Ariadna Roth on 06-16-2023 Calcium [Mass/Vol] 9.5 mg/dL 8.5-10.1 [facility] Serum or plasma creatinine m easurement (mass/volume)Ordered By: Ariadna Roth on 06-16-2023 Creatinine [Mass/Vol] 1.21 mg/dL 0.70-1.30 [facility] Comment on above: The validity of the calculated GFR & GFRAA in patients over 70 years has not been determined. Clinical correlation is essential. Serum or plasma urea nitroge n measurement (mass/volume)Ordered By: Ariadna Roth on 06-16-2023 Urea nitrogen [Mass/Vol] 15 mg/dL 7-18 [facility] Thin prep Papanicolaou smear with manual screeningOrdered By: Ariadna Roth on 06-16-2023 Thin prep Papanicolaou smear with manual screening 31 U/L 15-37 [facility] Thin prep Papanicolaou smear with manual screening 7 5-15 [facility] Absolute lymphocyte countOrd ered By: Dr. Roth on 10-07-2022 Lymphocytes Auto (Unsp spec) [#/Vol] 2.32 10*3/uL 0.83-4.51 [facility] Basophil percentageOrdered B y: Dr. Roth on 10-07-2022 Basophils/100 WBC (Bld) 0.5 % 0-1 [facility] Bilirubin [Mass/Vol] 0.50 mg/dL 0.20-1.00 [facility] Comment on above: For patients on eltr ombopag therapy, use of Dimension [place] TBIL is not recommended. Chloride [Moles/Vol] 109 mmol/L 98-107 [facility] Eosinophils/100 WBC (Bld) 2.3 % 0-5 [facility] Glucose [Mass/Vol] 97 mg/dL 74-106 [facility] Neutrophils (Bld) [#/Vol] 5.2 10*3/uL 2.0-7.7 [facility] Neutrophils/100 WBC (Bld) 62.8 % 47-70 [facility] Potassium [Moles/Vol] 4.5 mmol/L 3.5-5.1 [facility] Protein [Mass/Vol] 7.8 g/dL 6.4-8.2 [facility] Sodium [Moles/Vol] 141 mmol/L 136-145 [facility] WBC (Bld) [#/Vol] 8.3 10*3/uL 4.4-11.0 [facility] Blood erythrocytes count (nu mber/volume)Ordered By: Dr. Roth on 10-07-2022 RBC (Bld) [#/Vol] 5.29 10*6/uL 4.6-6.2 [facility] Blood hemoglobin measurement (mass/volume)Ordered By: Dr. Roth on 10-07-2022 Hemoglobin (Bld) [Mass/Vol] 16.0 g/dL 13.0-16.5 [facility] Blood lymphocytes/100 leukoc ytesOrdered By: Dr. Roth on 10-07-2022 Lymphocytes/100 WBC (Bld) 27.9 % 19-41 [facility] Blood monocytes/100 leukocyt esOrdered By: Dr. Roth on 10-07-2022 Monocytes/100 WBC (Bld) 6.1 % 0-10 [facility] Blood platelet mean volumeOr dered By: Dr. Roth on 10-07-2022 Platelet mean volume (Bld) [Entitic vol] 10.1 fL 6.2-12.0 [facility] Determination of erythrocyte mean corpuscular volume (MCV)Ordered By: Dr. Roth on 10-07-2022 MCV (RBC) [Entitic vol] 94.3 fL 80-94 [facility] Hematocrit Auto (Bld) [Volum e fraction]Ordered By: Dr. Roth on 10-07-2022 Hematocrit (Bld) [Volume fraction] 49.9 % 40-54 [facility] Laboratory - Chemistry and C hemistry - challengeOrdered By: Dr. Roth on 10-07-2022 ALP [Catalytic activity/Vol] 59 U/L 45-117 [facility] ALT [Catalytic activity/Vol] 66 U/L 16-61 [facility] CO2 [Moles/Vol] 24.0 mmol/L 21.0-32.0 [facility] Globulin (S) [Mass/Vol] 3.5 g/dL 2.2-4.2 [facility] Urea nitrogen/Creatinine [Mass ratio] 12.3 mg/mg 10-20 [facility] - Hematology and Cell countsOrdered By: Dr. Roth on 10-07-2022 Erythrocyte distribution width (RBC) [Entitic vol] 45.1 fL 35.1-43.9 [facility] Erythrocyte distribution width (RBC) [Ratio] 13.2 % 11.6-14.6 [facility] Immature granulocytes/100 WBC (Bld) 0.400 % 0.0-0.9 [facility] Comment on above: IG% - Immature Granu locytes (promyelocytes, myelocytes and metamyelocytes) > 1% indicates that a LEFT SHIFT is Present. MCH (RBC) [Entitic mass] 30.2 pg 27.0-32.0 [facility] Nucleated RBC/100 WBC (Bld) [Ratio] 0 % 0-5 [facility] MCHC Auto (RBC) [Mass/Vol]Or dered By: Dr. Roth on 10-07-2022 MCHC (RBC) [Mass/Vol] 32.1 g/dL 32-36 [facility] No Panel InformationOrdered By: Dr. Roth on 10-07-2022 D-Dimer Quantitative (PE/DVT) < 0.27 FEU/ug/m 0.27-0.49 [facility] Comment on above: NORMAL D-Dimer level (<0.50) indicates no DVT or PE. Estimated GFR (MDRD) Amer 86 mL/min >60 [facility] Comment on above: GFR Calc Estimated GFR (MDRD) Non-Af Amer 71 mL/min >60 [facility] Comment on above: Non- GFR Calc Platelets bldOrdered By: Dr. Roth on 10-07-2022 Platelets (Bld) [#/Vol] 342 10*3/uL 150-450 [facility] Serum or plasma albumin paulino urement (mass/volume)Ordered By: Dr. Roth on 10-07-2022 Albumin [Mass/Vol] 4.3 g/dL 3.2-5.0 [facility] Serum or plasma albumin/glob ulin mass ratioOrdered By: Dr. Roth on 10-07-2022 Albumin/Globulin [Mass ratio] 1.2 {ratio} 0.9-2.4 [facility] Serum or plasma calcium paulino urement (mass/volume)Ordered By: Dr. Roth on 10-07-2022 Calcium [Mass/Vol] 9.6 mg/dL 8.5-10.1 [facility] Serum or plasma creatinine m easurement (mass/volume)Ordered By: Dr. Roth on 10-07-2022 Creatinine [Mass/Vol] 1.14 mg/dL 0.70-1.30 [facility] Comment on above: The validity of the calculated GFR & GFRAA in patients over 70 years has not been determined. Clinical correlation is essential. Serum or plasma urea nitroge n measurement (mass/volume)Ordered By: Dr. Roth on 10-07-2022 Urea nitrogen [Mass/Vol] 14 mg/dL 7-18 [facility] Thin prep Papanicolaou smear with manual screeningOrdered By: Dr. Roth on 10-07-2022 Thin prep Papanicolaou smear with manual screening 31 U/L 15-37 [facility] Thin prep Papanicolaou smear with manual screening 8 5-15 [facility] Basic metabolic 1998 panelon 10-06-2022 Anion gap [Moles/Vol] 11 mmol/L 3 - 13 mmol/L [facility] Calcium [Mass/Vol] 10.3 mg/dL 8.4 - 10. 4 mg/dL [facility] Chloride [Moles/Vol] 108 mmol/L High 98 - 10 7 mmol/L [facility] CO2 [Moles/Vol] 22 mmol/L 22 - 30 mmol/L [facility] Creatinine [Mass/Vol] 1.31 mg/dL High 0.66 - 1.25 mg/dL [facility] GFR/1.73 sq M.predicted MDRD (S/P/Bld) [Vol rate/Area] 65.1 mL/min/{1.73_m2} - [facility] Comment on above: Calculation based on the Chronic Kidney Disease Epidemiology Collaboration (CKD-EPI) equation refit without adjustment for race Glucose [Mass/Vol] 87 mg/dL 70 - 100 mg/dL [facility] Potassium [Moles/Vol] 4.6 mmol/L 3.5 - 5.1 mmol/L [facility] Sodium [Moles/Vol] 142 mmol/L 135 - 145 mmol/L [facility] Urea nitrogen [Mass/Vol] 14 mg/dL 9 - 20 mg/dL [facility] CBC W Auto Differential pane l (Bld)Ordered By: Breanna Farmer on 10-06-2022 Basophils (Bld) [#/Vol] 0.1 10*3/uL 0.0 - 0.2 10*3/uL [facility] Basophils/100 WBC (Bld) 0.9 % 0.0 - 2.0 % [facility] Eosinophils (Bld) [#/Vol] 0.1 10*3/uL 0.0 - 0.5 10*3/uL [facility] Eosinophils/100 WBC (Bld) 1.4 % 1.0 - 6.0 % [facility] Erythrocyte distribution width (RBC) [Ratio] 13.3 % 11.5 - 14.5 % [facility] Hematocrit (Bld) [Volume fraction] 47.5 % 40.0 - 52.0 % [facility] Hemoglobin (Bld) [Mass/Vol] 15.5 g/dL 13.0 - 18.0 g/dL [facility] Interpretation and review of laboratory results Abnormal [facility] Lymphocytes (Bld) [#/Vol] 2.5 10*3/uL 1.0 - 4.3 10*3/uL [facility] Lymphocytes/100 WBC (Bld) 22.6 % 20.0 - 40.0 % [facility] MCH (RBC) [Entitic mass] 30.1 pg 26.0 - 34.0 pg [facility] MCHC (RBC) [Mass/Vol] 32.6 % 32.0 - 36.0 % [facility] MCV (RBC) [Entitic vol] 92.3 fL 80.0 - 98.0 fL [facility] Monocytes (Bld) [#/Vol] 0.7 10*3/uL 0.0 - 0.8 10*3/uL [facility] Monocytes/100 WBC (Bld) 6.4 % 2.0 - 10.0 % [facility] Neutrophils (Bld) [#/Vol] 7.6 10*3/uL High 1.8 - 7.0 10*3/uL [facility] Neutrophils/100 WBC (Bld) 68.7 % 40.0 - 80.0 % [facility] Nucleated RBC/100 WBC (Bld) [Ratio] 0.0 % [facility] Platelet mean volume (Bld) [Entitic vol] 7.3 fL Low 7.4 - 12.4 fL [facility] Platelets (Bld) [#/Vol] 314 10*3/uL 140 - 440 10*3/uL [facility] RBC (Bld) [#/Vol] 5.14 10*6/uL 4.40 - 5.9 0 10*6/uL [facility] WBC (Bld) [#/Vol] 11.0 10*3/uL High 3.6 - 10.7 10*3/uL [facility] Hepatic function 2000 panelo n 10-06-2022 Albumin [Mass/Vol] 4.8 g/dL 3.5 - 5.0 g/dL [facility] ALP [Catalytic activity/Vol] 67 U/L 38 - 126 U/L [facility] ALT [Catalytic activity/Vol] 50 U/L High 0 - 49 U/L [facility] AST [Catalytic activity/Vol] 36 U/L 15 - 46 U/L [facility] Bilirubin [Mass/Vol] 0.4 mg/dL 0.2 - 1 .3 mg/dL [facility] Bilirubin.conjugated [Mass/Vol] 0.0 mg/dL 0.0 - 0.3 mg/dL [facility] Protein [Mass/Vol] 8.3 g/dL High 6.3 - 8.2 g/dL [facility] Laboratory - Chemistry and C hemistry - challengeon 10-06-2022 Troponin I.cardiac [Mass/Vol] ng/mL 0.000 - 0.034 ng/mL [facility] Troponin I.cardiac [Mass/Vol] ng/mL 0.000 - 0.034 ng/mL [facility] No Panel Informationon 10-06 P [place] 56 degrees [facility] DC Interval 170 ms [facility] QRS [place] -38 degrees [facility] QRSD Interval 89 ms [facility] QT Interval 325 ms [facility] QTC Interval 415 ms [facility] T Wave [place] 31 degrees [facility] Sinus rhythm Left axis deviation Borderline ST elevation, anterior leads Electronically Signed On 10-06-2022 17:00:59 EDT by Josh Macias Josh Clemente MD - 10/06/2022 IMPRESSION: Sinus rhythm Left axis deviation Borderline ST elevation, anterior leads Electronically Signed On 10-06-2022 17:00:59 EDT by Josh Macias [facility] Interpretation and review of laboratory results Abnormal [facility] Troponin I.cardiac [Mass/Vol ]on 10-06-2022 Interpretation and review of laboratory results Normal [facility] Patients with high levels of Biotin oral intake (ie >5 mg/day) may have falsely decreased Troponin levels. [facility] Interpretation and review of laboratory results Normal [facility] Patients with high levels of Biotin oral intake (ie >5 mg/day) may have falsely decreased Troponin levels. [facility] Vital signson 10-06-2022 Heart rate 98 /min bpm [facility] XR Chest Single viewon 10-06 No acute abnormality Report Dictated on Electronically Signed By: Aneudy Pena Electronically Signed Date/Time: 10/06/2022 2:45 PM EDT [facility] Patient Name: ABRAHAM BLACK : 1970 Exam Date/Time: 10/06/2022 14:11 Procedure: XR CHEST 1 VIEW Ordering Provider: HART DANIELLE Reason For Exam: chest pain PORTABLE CHEST CLINICAL INDICATION: Chest pain TECHNIQUE: Portable AP COMPARISON: 02/20/2013 FINDINGS: Exam quality: EKG leads obscure small portions of the chest. The heart and mediastinum are normal. The lungs are clear. Costophrenic angles are sharp. The osseous structures are unremarkable. [facility] Aneudy Pena MD - 10/06/2022 Patient Name: ABRAHAM BLACK : 1970 Exam Date/Time: 10/06/2022 14:11 Procedure: XR CHEST 1 VIEW Ordering Provider: HART DANIELLE Reason For Exam: chest pain PORTABLE CHEST CLINICAL INDICATION: Chest pain TECHNIQUE: Portable AP COMPARISON: 02/20/2013 FINDINGS: Exam quality: EKG leads obscure small portions of the chest. The heart and mediastinum are normal. The lungs are clear. Costophrenic angles are sharp. The osseous structures are unremarkable. IMPRESSION: No acute abnormality Report Dictated on Electronically Signed By: Aneudy Pena Electronically Signed Date/Time: 10/06/2022 2:45 PM EDT [facility] Radiology Study observation (narrative) [facility]th XR Chest Single viewOrdered By: Aneudy Pena on 10-06-2022 [facility] Work Phone: Absolute lymphocyte countOrd ered By: Dr. Roth on 09-28-2022 Lymphocytes Auto (Unsp spec) [#/Vol] 2.28 10*3/uL 0.83-4.51 [facility] Basophil percentageOrdered B y: Dr. Roth on 09-28-2022 Basophils/100 WBC (Bld) 0.6 % 0-1 [facility] Bilirubin [Mass/Vol] 0.50 mg/dL 0.20-1.00 [facility] Comment on above: For patients on eltr ombopag therapy, use of Dimension [place] TBIL is not recommended. Chloride [Moles/Vol] 109 mmol/L 98-107 [facility] Cholesterol [Mass/Vol] 158 mg/dL <200 [facility] Comment on above: <200 mg/dL Desirable 200-240 mg/dL Borderline >240 mg/dL High Risk Eosinophils/100 WBC (Bld) 2.6 % 0-5 [facility] Glucose [Mass/Vol] 80 mg/dL 74-106 [facility] Neutrophils (Bld) [#/Vol] 5.4 10*3/uL 2.0-7.7 [facility] Neutrophils/100 WBC (Bld) 63.1 % 47-70 [facility] Potassium [Moles/Vol] 4.3 mmol/L 3.5-5.1 [facility] Comment on above: Slight Hemolysis, Re sult may be falsely increased. Protein [Mass/Vol] 8.1 g/dL 6.4-8.2 [facility] Sodium [Moles/Vol] 135 mmol/L 136-145 [facility] Triglyceride [Mass/Vol] 59 mg/dL <199 [facility] Comment on above: The drugs N-Acetylcy steine and Metamizole may falsely depress this assay.Serum Triglycerides Reference Interval Normal <150 mg/dL Borderline high 150 - 199 mg/dL High 200 - 499 mg/dL Very High > or = 500 mg/dL WBC (Bld) [#/Vol] 8.6 10*3/uL 4.4-11.0 [facility] Blood erythrocytes count (nu mber/volume)Ordered By: Dr. Roth on 09-28-2022 RBC (Bld) [#/Vol] 5.13 10*6/uL 4.6-6.2 [facility] Blood hemoglobin measurement (mass/volume)Ordered By: Dr. Roth on 09-28-2022 Hemoglobin (Bld) [Mass/Vol] 15.6 g/dL 13.0-16.5 [facility] Blood lymphocytes/100 leukoc ytesOrdered By: Dr. Roth on 09-28-2022 Lymphocytes/100 WBC (Bld) 26.5 % 19-41 [facility] Blood monocytes/100 leukocyt esOrdered By: Dr. Roth on 09-28-2022 Monocytes/100 WBC (Bld) 6.9 % 0-10 [facility] Blood platelet mean volumeOr dered By: Dr. Roth on 09-28-2022 Platelet mean volume (Bld) [Entitic vol] 10.4 fL 6.2-12.0 [facility] Determination of erythrocyte mean corpuscular volume (MCV)Ordered By: Dr. Roth on 09-28-2022 MCV (RBC) [Entitic vol] 94.2 fL 80-94 [facility] Hematocrit Auto (Bld) [Volum e fraction]Ordered By: Dr. Roth on 09-28-2022 Hematocrit (Bld) [Volume fraction] 48.3 % 40-54 [facility] Laboratory - Chemistry and C hemistry - challengeOrdered By: Dr. Roth on 09-28-2022 ALP [Catalytic activity/Vol] 64 U/L 45-117 [facility] ALT [Catalytic activity/Vol] 49 U/L 16-61 [facility] CO2 [Moles/Vol] 21.0 mmol/L 21.0-32.0 [facility] Globulin (S) [Mass/Vol] 4.0 g/dL 2.2-4.2 [facility] Urea nitrogen/Creatinine [Mass ratio] 13.6 mg/mg 10-20 [facility] - Hematology and Cell countsOrdered By: Dr. Roth on 09-28-2022 Erythrocyte distribution width (RBC) [Entitic vol] 45.2 fL 35.1-43.9 [facility] Erythrocyte distribution width (RBC) [Ratio] 13.1 % 11.6-14.6 [facility] Immature granulocytes/100 WBC (Bld) 0.300 % 0.0-0.9 [facility] Comment on above: IG% - Immature Granu locytes (promyelocytes, myelocytes and metamyelocytes) > 1% indicates that a LEFT SHIFT is Present. MCH (RBC) [Entitic mass] 30.4 pg 27.0-32.0 [facility] Nucleated RBC/100 WBC (Bld) [Ratio] 0 % 0-5 [facility] MCHC Auto (RBC) [Mass/Vol]Or dered By: Dr. Roth on 09-28-2022 MCHC (RBC) [Mass/Vol] 32.3 g/dL 32-36 [facility] No Panel InformationOrdered By: Dr. Roth on 09-28-2022 Estimated GFR (MDRD) Amer 78 mL/min >60 [facility] Comment on above: GFR Calc Estimated GFR (MDRD) Non-Af Amer 64 mL/min >60 [facility] Comment on above: Non- GFR Calc Thyroid Stimulating Hormone (TSH) 1.86 uIU/mL 0.358-3.74 [facility] Vitamin D 25-Hydroxy 41.1 ng/mL [facility] Comment on above: Vitamin D 25(OH) Sta tus Range Deficiency <20 ng/mL (50nmol/L) Insufficiency 20 - 30 ng/mL (50 - 75 nmol/L) Sufficiency 30 - 100 ng/mL (75 - 250 nmol/L) Toxicity >100 ng/mL (>250 nmol/L) Platelets bldOrdered By: Dr. Roth on 09-28-2022 Platelets (Bld) [#/Vol] 331 10*3/uL 150-450 [facility] Serum or plasma albumin paulino urement (mass/volume)Ordered By: Dr. Roth on 09-28-2022 Albumin [Mass/Vol] 4.1 g/dL 3.2-5.0 [facility] Serum or plasma albumin/glob ulin mass ratioOrdered By: Dr. Roth on 09-28-2022 Albumin/Globulin [Mass ratio] 1.0 {ratio} 0.9-2.4 [facility] Serum or plasma calcium paulino urement (mass/volume)Ordered By: Dr. Roth on 09-28-2022 Calcium [Mass/Vol] 9.2 mg/dL 8.5-10.1 [facility] Serum or plasma cholesterol in HDL measurement (mass/volume)Ordered By: Dr. Roth on 09-28-2022 Cholesterol in HDL [Mass/Vol] 44 mg/dL >40 [facility] Comment on above: The drugs N-Acetylcy steine and Metamizole may falsely depress this assay. Reference Range HDL <40 mg/dL Low HDL Cholesterol HDL >or= 60 mg/dL High HDL Cholesterol Serum or plasma cholesterol in VLDL measurement (mass/volume)Ordered By: Dr. Roth on 09-28-2022 Cholesterol in VLDL [Mass/Vol] 12 mg/dL 5-40 [facility] Serum or plasma creatinine m easurement (mass/volume)Ordered By: Dr. Roth on 09-28-2022 Creatinine [Mass/Vol] 1.25 mg/dL 0.70-1.30 [facility] Comment on above: The validity of the calculated GFR & GFRAA in patients over 70 years has not been determined. Clinical correlation is essential. Serum or plasma low density lipoprotein (LDL) cholesterol measurement (mass/volume)Ordered By: Dr. Roth on 09-28-2022 Cholesterol in LDL [Mass/Vol] 102 mg/dL 0-130 [facility] Serum or plasma urea nitroge n measurement (mass/volume)Ordered By: Dr. Roth on 09-28-2022 Urea nitrogen [Mass/Vol] 17 mg/dL 7-18 [facility] Thin prep Papanicolaou smear with manual screeningOrdered By: Dr. Roth on 09-28-2022 Thin prep Papanicolaou smear with manual screening 27 U/L 15-37 [facility] Comment on above: Slight Hemolysis, Re sult may be falsely increased. Thin prep Papanicolaou smear with manual screening 5 5-15 [facility] Basophil percentageOrdered B y: Dr. Harrison on 07-21-2022 Basophil percentage 2.7 mg/dL 2.5-4.9 [facility] Chloride [Moles/Vol] 112 mmol/L 98-107 [facility] Glucose [Mass/Vol] 102 mg/dL 74-106 [facility] Comment on above: Fasting Glucose resu lt from 100 to 125 mg/dL suggests IMPAIRED HOMEOSTASIS per A.D.A. criteria. Potassium [Moles/Vol] 4.2 mmol/L 3.5-5.1 [facility] Sodium [Moles/Vol] 143 mmol/L 136-145 [facility] WBC (Bld) [#/Vol] 7.1 10*3/uL 4.4-11.0 [facility] Blood erythrocytes count (nu mber/volume)Ordered By: Dr. Harrison on 07-21-2022 RBC (Bld) [#/Vol] 5.08 10*6/uL 4.6-6.2 [facility] Blood hemoglobin measurement (mass/volume)Ordered By: Dr. Harrison on 07-21-2022 Hemoglobin (Bld) [Mass/Vol] 15.4 g/dL 13.0-16.5 [facility] Blood platelet mean volumeOr dered By: Dr. Harrison on 07-21-2022 Platelet mean volume (Bld) [Entitic vol] 9.8 fL 6.2-12.0 [facility] Determination of erythrocyte mean corpuscular volume (MCV)Ordered By: Dr. Harrison on 07-21-2022 MCV (RBC) [Entitic vol] 92.1 fL 80-94 [facility] Hematocrit Auto (Bld) [Volum e fraction]Ordered By: Dr. Harrison on 07-21-2022 Hematocrit (Bld) [Volume fraction] 46.8 % 40-54 [facility] Laboratory - Chemistry and C hemistry - challengeOrdered By: Dr. Harrison on 07-21-2022 CO2 [Moles/Vol] 25.0 mmol/L 21.0-32.0 [facility] Urea nitrogen/Creatinine [Mass ratio] 10.5 mg/mg 10-20 [facility] Laboratory - Hematology and Cell countsOrdered By: Dr. Harrison on 07-21-2022 Erythrocyte distribution width (RBC) [Entitic vol] 45.8 fL 35.1-43.9 [facility] Erythrocyte distribution width (RBC) [Ratio] 13.3 % 11.6-14.6 [facility] MCH (RBC) [Entitic mass] 30.3 pg 27.0-32.0 [facility] MCHC Auto (RBC) [Mass/Vol]Or dered By: Dr. Harrison on 07-21-2022 MCHC (RBC) [Mass/Vol] 32.9 g/dL 32-36 [facility] No Panel InformationOrdered By: Dr. Harrison on 07-21-2022 Estimated GFR (MDRD) Amer 78 mL/min >60 [facility] Comment on above: GFR Calc Estimated GFR (MDRD) Non-Af Amer 65 mL/min >60 [facility] Comment on above: Non- GFR Calc Parathyroid Hormone (Intact) 41.8 pg/mL 18.4-80.1 [facility] Vitamin D 25-Hydroxy 43.7 ng/mL [facility] Comment on above: Vitamin D 25(OH) Sta tus Range Deficiency <20 ng/mL (50nmol/L) Insufficiency 20 - 30 ng/mL (50 - 75 nmol/L) Sufficiency 30 - 100 ng/mL (75 - 250 nmol/L) Toxicity >100 ng/mL (>250 nmol/L) Platelets bldOrdered By: Dr. Harrison on 07-21-2022 Platelets (Bld) [#/Vol] 295 10*3/uL 150-450 [facility] Serum or plasma albumin paulino urement (mass/volume)Ordered By: Dr. Harrison on 07-21-2022 Albumin [Mass/Vol] 4.1 g/dL 3.2-5.0 [facility] Serum or plasma calcium paulino urement (mass/volume)Ordered By: Dr. Harrison on 07-21-2022 Calcium [Mass/Vol] 9.2 mg/dL 8.5-10.1 [facility] Serum or plasma creatinine m easurement (mass/volume)Ordered By: Dr. Harrison on 07-21-2022 Creatinine [Mass/Vol] 1.24 mg/dL 0.70-1.30 [facility] Comment on above: The validity of the calculated GFR & GFRAA in patients over 70 years has not been determined. Clinical correlation is essential. Serum or plasma urea nitroge n measurement (mass/volume)Ordered By: Dr. Harrison on 07-21-2022 Urea nitrogen [Mass/Vol] 13 mg/dL 7-18 [facility] Urine creatinine measurement (mass/volume)Ordered By: Dr. Harrison on 07-21-2022 Creatinine (U) [Mass/Vol] 342.00 mg/dL NO RANGE EST. [facility] Urine protein measurement (m ass/volume)Ordered By: Dr. Harrison on 07-21-2022 Protein (U) [Mass/Vol] 10.3 mg/dL 0.0-11.8 [facility] Urine protein/creatinine mas s ratioOrdered By: Dr. Harrison on 07-21-2022 Protein/Creatinine (U) [Mass ratio] 30 mg/g CRE 0-200 [facility] Laboratory - Drug toxicology Ordered By: Dr. Gallego on 04-18-2022 Amphetamines Ql (U) Negative <1000 ng/mL [facility] Benzodiazepines Ql (U) Negative < 200 ng/mL [facility] Cannabinoids Screen Ql (U) Negative < 50 ng/mL [facility] Cocaine Ql (U) Negative < 300 ng/mL [facility] Opiates Ql (U) Positive < 300 ng/mL [facility] No Panel InformationOrdered By: Dr. Gallego on 04-18-2022 MDMA (Ecstasy) Screen Negative < 500 ng/mL [facility] Miscellaneous Test See comment [facility] Comment on above: [id number] 6+OXYCODONE-B UND (ng/mL) DRUG RESULT SCREEN CUTOFF____ Amphetamines,Urine Negative ng/mL 1000 Amphetamine test includes Amphetamine and Methamphetamine.Barbiturates Negative ng/mL 200Benzodiazepines Negative ng/mL 200Cannabinoid Negative ng/mL 20Cocaine (Metab) Negative ng/mL 300Opiates Negative ng/mL 300 Opiates test includes Codeine, Morphine, Hydromorphone, Hydrocodone. Oxycodone/Oxymorphone,Urine Positive ng/mL 300 Test includes Oxydodone and Oxymorphone. Oxycodone Positive Oxycodone Conf, [place], UR 1738 ng/mL 300 Oxymorphone Positive Oxymorphone Conf, MS, UR 1417 ng/mL 300 TESTING PERFORMED AT [facility]. ORIGINAL REPORT ON FILE IN LAB CONTAINS ADDITIONAL TEST SITE INFORMATION. Urine Barbiturates Screen Negative < 200 ng/mL [facility] Urine Drug Screen Comment [facility] Comment on above: CONFIRMATORY TESTING FOR ALL POSITIVE URINE DRUG SCREENRESULTS WILL ONLY BE SENT OUT UPON PHYSICIAN ORDER. VISTA Urine Drug Screen methods provide only preliminaryanalytical test results. A more specific alternate chemicalmethod must be used in order to obtain a confirmedanalytical result. Gas chromatography/mass spectrometery(GC/MS) is the preferred confirmatory method. Clinicalconsideration and professional judgement should be appliedto any drug of abuse test result, particularly whenpreliminary positive results are used. URINE TCA TESTING MUST BE ORDERED SEPARATELY. USE TESTMNEMONIC: MOCA Urine Methadone Screen Negative < 300 ng/mL [facility] Urine phencyclidine (PCP) de tectionOrdered By: Dr. Gallego on 04-18-2022 Phencyclidine Ql (U) Negative < 25 ng/mL [facility] CNOVon 06-23-2021 CNOV Office Visit (PSYLWM ) ABRAHAM BLACK ([id number]) 1970 M Date Time Provider Department 06/23/21 10:00 AM MARYLOU RICH During your visit today, we recorded the following information about you: Marylou Rich, PhD 06/23/2021 11:01 AM Signed [facility] Behavioral Health Progress Note Abraham Black 06/23/2021 [id number] Provider: Marylou Rich, PhD CPT Code: 46395 Psychiatric diagnostic evaluation Time: Approximately 50 minutes [...] cannabis Mental Status: Mood: variable Affect: mood-congruent Thoughts/Associations:g oal directed Suicidal/Homicidal Ideation: None expressed or evidenced [...] Psychiatric Medication Issues: see med record DIAGNOSIS: [place] I: Chronic Pain [place] II: deferred [place] III: see med record [place] IV: pain [place] V: 50-55 Treatment Modality/Interventions: Cognitive Behavioral Reassurance/Supportive Psychoeducation TREATMENT ASSESSMENT/PROGRESS: . Progressing satisfactorily. TREATMENT PLAN/GOALS: Continue in therapy focusing on self-care, stress management, affect management and coping with pain. Next appointment: None scheduled. Pt wiill call if issues arise. Marylou Rich, PhD Referring Provider: CHELITA GALLEGO [[id number]] Allergies As of Date: 06/23/2021 Noted Allergy Reaction HYDROCODONE-ACETAMINOPH EN 04/04/2019 9 - Itching IODINATED CONTRAST MEDIA 04/04/2019 12 - Shortness of Breath TRAMADOL 04/04/2019 14 - Other: See Comments Comments: headache Date Reviewed: 07/16/2020 Reviewed by: Kathy L Brissa Ma - Fully Assessed Primary Visit Diagnosis:Other chronic pain [G89.29] Prescriptions as of 06/23/2021 - oxybutynin ER (DITROPAN XL) 10 mg [...] prn, as tolerated; can taper slowly as a (more content not included)... Normal [facility] CR Spine Cervical 4+ Viewson 12-27-2018 CR Spine Cervical 4+ Views Patient Name: ABRAHAM BLACK Diagnostic Radiology Exam Date/Time 12/27/2018 12:57:49 EDT Exam CR Spine Cervical 4+ Views Ordering Physician [id number] TACHO PASTOR Accession Number [id number] CPT4 Codes 95220 () Reason For Exam Cervical pain Report Clinical indication: Neck pain. COMPARISON: None. TECHNIQUE: AP, lateral, oblique, and odontoid views were obtained of the cervical spine. FINDINGS: The vertebral bodies of the cervical spine are normal in height without evidence of an acute compression fracture. There is mild degenerative disc disease at C4-C5 and C5-C6 with anterior bridging osteophytes. No listhesis is present. There is straightening of the normal cervical lordosis. No prevertebral soft tissue swelling is identified. The airways are patent and the lung apices are clear. The bony neuroforamina are patent bilaterally. The odontoid is intact. Lateral masses of C1 are in appropriate position. IMPRESSION: No acute osseous abnormality of the cervical spine. Mild degenerative disc disease at C4-C5 and C5-C6. Straightening of normal cervical lordosis which could be secondary to muscular spasm versus positioning. Report Dictated on Final Dictated: 12/27/2018 2:02 pm Dictating Physician: MD SWENSON YUN ROBERT Signed Date and Time: 12/27/2018 2:05 pm Signed by: MD SWENSON YUN ROBERT Transcribed Date and Time: 12/27/2018 2:02 Normal [facility] .Auto Diffon 04-28-2018 Ammonia mass conc (P) 0.50 10 3/mcL Normal 0.15-1.00 [facility] ([place]) Comment on above: Performed By: #### C BC, ADIFF, ANEU ####[address]et [address] [place] [address]#### BMP, GFR ####[address] [address] Basophils Auto #/vol (Bld) 0.10 10 3/mcL Normal 0.00-0.19 [facility] ([place]) Comment on above: Performed By: #### Nancy BC, ADIFF, ANEU ####Harjeet [address] [place] [address]#### BMP, GFR ####[address] [address] Basophils/100 WBC Auto (Bld) 1.0 % Normal 0.0-2.5 [facility] ([place]) Comment on above: Performed By: #### C BC, ADIFF, ANEU ####Harjeet [address] [place] [address]#### BMP, GFR ####[address] [address] Eosinophils Auto #/vol (Bld) 0.20 10 3/mcL Normal 0.00-0.40 [facility] ([place]) Comment on above: Performed By: #### C BC, ADIFF, ANEU ####Harjeet [address] [place] [address]#### BMP, GFR ####[address] [address] Eosinophils/100 WBC Auto (Bld) 1.9 % Normal 0.0-7.0 [facility] ([place]) Comment on above: Performed By: #### C BC, ADIFF, ANEU ####Harjeet R[address]mtxqsh[address] [place] [address]#### BMP, GFR ####[address] [address] Lymphocytes Auto #/vol (Bld) 2.80 10 3/mcL Normal 0.77-3.85 [facility] ([place]) Comment on above: Performed By: #### C BC, ADIFF, ANEU ####[address]jeet [address] [address]#### BMP, GFR ####[address] [address] Lymphocytes/100 WBC Auto (Bld) 29.2 % Normal 10.0-50.0 [facility] ([place]) Comment on above: Performed By: #### C BC, ADIFF, ANEU ####Harjeet [place] [address]#### BMP, GFR ####[address] [address] Monocytes/100 WBC Auto (Bld) 5.6 % Normal 1.7-13.0 [facility] ([place]) Comment on above: Performed By: #### C BC, ADIFF, ANEU ####Harjeet [address]pekfr[address] [place] [address]#### BMP, GFR ####[address] [address] Neutrophils/100 WBC Auto (Bld) 62.3 % Normal 37.0-80.0 [facility] ([place]) Comment on above: Performed By: #### C BC, ADIFF, ANEU ####Harjeet [address] [place] [address]#### BMP, GFR ####[address] [address] .GFRon 04-28-2018 GFR 64 ml/min/1.73sqm Normal [facility] ([place]) Comment on above: Result Comment: GFR Population mean for , Non- Americans Ages 20-29 = 116 mL/min/1.73 sq.m. Ages 30-39 = 107 mL/min/1.73 sq.m. Ages 40-49 = 99 mL/min/1.73 sq.m. Ages 50-59 = 93 mL/min/1.73 sq.m. Ages 60-69 = 85 mL/min/1.73 sq.m. Ages 70+ = 75 mL/min/1.73 sq.m.Chronic Kidney Disease: Less than 60 mL/min/1.73 square metersEnd Stage Renal Disease: Less than 15 mL/min/1.73 square meters Performed By: #### C BC, ADIFF, ANEU ####Harjeet [address] [place], [place] [address]#### BMP, GFR ####[address] [address] GFR Non- 53 ml/min/1.73sqm Normal [facility] ([place]) Comment on above: Result Comment: GFR Population mean for , Non- Americans Ages 20-29 = 116 mL/min/1.73 sq.m. Ages 30-39 = 107 mL/min/1.73 sq.m. Ages 40-49 = 99 mL/min/1.73 sq.m. Ages 50-59 = 93 mL/min/1.73 sq.m. Ages 60-69 = 85 mL/min/1.73 sq.m. Ages 70+ = 75 mL/min/1.73 sq.m.Chronic Kidney Disease: Less than 60 mL/min/1.73 square metersEnd Stage Renal Disease: Less than 15 mL/min/1.73 square meters Performed By: #### C BC, ADIFF, ANEU ####[address] [place], [place] [address]#### BMP, GFR ####[address] [address] .NEUABSon 04-28-2018 Neutrophil, Absolute 6.00 10 3/mcL Normal 2.85-6.16 A [facility] ([place]) Comment on above: Performed By: #### C BC, ADIFF, ANEU ####[place] [address]#### BMP, GFR ####[address] [address] .Urinalysis Microscopic (AO) on 04-28-2018 RBC Test strip #/vol (U) 15-25 Invalid Interpretation Code None Seen [facility] ([place]) Comment on above: Performed By: #### U A, UAMICAO ####[place] [address] [address] UA Squam Epithelial None Seen Normal None Seen [facility] ([place]) Comment on above: Performed By: #### U A, UAMICAO ####[place] [address] [place] [address] UA WBC None Seen Normal None Seen [facility] ([place]) Comment on above: Performed By: #### U A, UAMICAO ####[place] [address] [place] [address] BMPon 04-28-2018 Calcium mass conc 8.9 mg/dL Normal 8.4-10.2 [facility] ([place]) Comment on above: Performed By: #### C BC ADIFF, ANEU ####[place] [address]#### BMP, GFR ####[place] [address] Chloride molar conc 103 mmol/L Normal 98-107 [facility] ([place]) Comment on above: Performed By: #### C BC, ADIFF, ANEU ####[address] [place] [address]#### BMP, GFR ####[place] [address] CO2 molar conc 27 mmol/L Normal 22-29 [facility] ([place]) Comment on above: Performed By: #### C BC, ADIFF, ANEU ####[address] [place] [address]#### BMP, GFR ####[place] [address] Creatinine mass conc 1.42 mg/dL High 0.70-1.30 [facility] ([place]) Comment on above: Performed By: #### C BC, ADIFF, ANEU ####Harjeet [address] [place], [place] [address]#### BMP, GFR ####[address] [address] Electrolyte Balance 11.0 mEq/L Normal [facility] ([place]) Comment on above: Performed By: #### C BC, ADIFF, ANEU ####Harje[address] [place], [place] [address]#### BMP, GFR ####[address] [address] Glucose mass conc 108 mg/dL High 70-105 [facility] ([place]) Comment on above: Performed By: #### C BC, ADIFF, ANEU ####[address] [address]#### BMP, GFR ####[address] [address] Potassium molar conc 3.9 mmol/L Normal 3.5-5.1 [facility] ([place]) Comment on above: Performed By: #### C BC, ADIFF, ANEU ####[place] [address] [place], [place] [address]#### BMP, GFR ####[address] [address] Sodium molar conc 141 mmol/L Normal 136-145 [facility] ([place]) Comment on above: Performed By: #### C BC, ADIFF, ANEU ####Harje[address] Qit[address]als[address] [place], [place] [address]#### BMP, GFR ####[place] [address] [place] [address] Urea nitrogen mass conc 23 mg/dL High 7-18 A [facility] ([place]) Comment on above: Performed By: #### C BC, ADIFF, ANEU ####Harjeet [address] [place], [place] [address]#### BMP, GFR ####[address] [address] Urea nitrogen/Creatinine mass ratio 16 ratio Normal 7-27 [facility] ([place]) Comment on above: Performed By: #### C BASSEM ADIFF, ANEU ####[address] [place] [address]#### BMP, GFR ####[place] [address] CBCon 04-28-2018 Erythrocyte distribution width Auto Ratio (RBC) 12.7 % Normal 11.5-14.5 [facility] ([place]) Comment on above: Performed By: #### C BC ADIFF, ANEU ####[address] [place] [address]#### BMP, GFR ####[place] [address] Hematocrit Auto Volume Fraction (Bld) 44.0 % Normal 42.0-52.0 [facility] ([place]) Comment on above: Performed By: #### C PIO LUEVANO, ANEU ####[address] [place] [address]#### BMP, GFR ####[place] [address] Hemoglobin mass conc (Bld) 14.7 G/dL Normal 14.0-18.0 [facility] ([place]) Comment on above: Performed By: #### C BASSEM ADIFF, ANEU ####[address] [place] [address]#### BMP, GFR ####[place] [address] MCH Auto Entitic mass (RBC) 30.4 pg Normal 27.0-31.2 [facility] ([place]) Comment on above: Performed By: #### C BC ADIFF, ANEU ####Harjeet [address] [place] [address]#### BMP, GFR ####[place] [address] MCHC Auto mass conc (RBC) 33.3 G/dL Normal 31.8-35.4 [facility] ([place]) Comment on above: Performed By: #### C BC, ADIFF, ANEU ####Harjeet [address] [place], [place] [address]#### BMP, GFR ####[address] [address] MCV Auto Entitic volume (RBC) 91.4 fL Normal 80.0-94.0 [facility] ([place]) Comment on above: Performed By: #### C BC, ADIFF, ANEU ####Harjeet [address] [place] [id number]#### BMP, GFR ####[address] [address] Platelet mean volume Auto Entitic volume (Bld) 7.8 fL Normal 7.4-10.4 [facility] ([place]) Comment on above: Performed By: #### C BC, ADIFF, ANEU ####[place] [address]#### BMP, GFR ####[address] [address] Platelets Auto #/vol (Bld) 330 10 3/mcL Normal 130-400 [facility] ([place]) Comment on above: Performed By: #### C BC, ADIFF, ANEU ####Harjeet [address] [place], [place] [address]#### BMP, GFR ####[address] [address] RBC Auto #/vol (Bld) 4.82 10 6/mcL Normal 4.04-6.13 A [facility] ([place]) Comment on above: Performed By: #### C BC, ADIFF, ANEU ####Harjeet [address] [place] [id number]#### BMP, GFR ####[address] [address] WBC Auto #/vol (Bld) 9.70 10 3/mcL Normal 4.60-10.80 A [facility] ([place]) Comment on above: Performed By: #### C BC, ADIFF, ANEU ####[address] [place], [place] [address]#### BMP, GFR ####[place] [address] CT ABDOMEN/PELVIS W/O CONTRA STon 04-28-2018 CT ABDOMEN/PELVIS W/O CONTRAST ORIGINALClinical history: LEFT flank pain. COMPARISON: CT abdomen and pelvis on 03/06/2014. Axial scans were obtained through the abdomen and pelvis. Intravenous contrast was not given for this exam. This exam was performed according to our departmental dose optimization program, and includes the following measures where applicable: automated exposure control, adjustment of the mAs and/or kVp according to patient size and/or exam, and an iterative reconstruction algorithm. No acute abnormality is present at the lung bases. The liver, pancreas, spleen, adrenal glands, abdominal aorta, and inferior vena cava show no sign of acute abnormality within the limits of this noncontrast enhanced scan. The kidneys are normal in size. There are punctate nonobstructing intrarenal stones bilaterally. Mild LEFT hydronephrosis is present caused by a 2 mm stone obstructing the LEFT ureterovesical junction. There are no additional ureteral stones. There is no intestinal obstruction or inflammation. The colon is remarkable for diverticulosis with no signs of acute diverticulitis. The appendix is normal. Scans through the pelvis show urinary bladder is partly distended. 2 mm stone at LEFT ureterovesical junction is again noted. There is no pelvic mass, abnormal fluid collection or signs of inflammation. Patient has had instrumented fusion at L4-L5. Lumbar spine alignment is normal with no acute abnormality. IMPRESSION: 2 mm stone obstructing the LEFT ureterovesical junction causing mild LEFT hydronephrosis. Punctate bilateral nephrolithiasis. Interpreted By: Ralph Caicedo MDPreliminary Report By: Ralph Caicedo MDElectronically Signed By: Ralph Caicedo MD Dictated Date: 04/28/2018 6:38:35 AM Prelim Date: 04/28/2018 6:38:35 AM Sign Date: 04/28/2018 6:42:41 AM Normal [facility] ([place]) UAon 04-28-2018 Color Nom (U) Yellow Normal [facility] ([place]) Comment on above: Performed By: #### U A, UAMICAO ####Harje[address] [place] [address] Glucose mass conc (U) Negative Normal Negative [facility] ([place]) Comment on above: Performed By: #### U A, UAMICAO ####Harjeet [address] [place] [address] Ketones Ql (U) Negative Normal Negative [facility] ([place]) Comment on above: Performed By: #### U A, UAMICAO ####Harjeet [address] [place] [address] UA Appear Clear Normal Clear [facility] ([place] Comment on above: Performed By: #### U A, UAMICAO ####Harjeet [address] [place] [address] UA Blood Large Invalid Interpretation Code Negative [facility] ([place]) Comment on above: Performed By: #### U A, UAMICAO ####Harjeet [address] [place] [address] UA Leuk Est Negative Normal Negative [facility] ([place]) Comment on above: Performed By: #### U A, UAMICAO ####Harjeet [address] [place] [address] UA Nitrite Negative Normal Negative [facility] ([place] Comment on above: Performed By: #### U A, UAMICAO ####Harjeet [address] [place] [address] UA pH 6.0 Normal [facility] ([place]) Comment on above: Performed By: #### U A, UAMICAO ####Harjeet [address] [place] [address] UA Protein Negative Normal Negative [facility] ([place]) Comment on above: Performed By: #### U A, UAMICAO ####Harjeet [address] [place] [address] UA Spec Grav >=1.030 Invalid Interpretation Code [facility] ([place]) Comment on above: Performed By: #### U A, UAMICAO ####Harjeet [address] [place] [address] UA Specimen Type Void Normal [facility] ([place]) Comment on above: Performed By: #### U A, UAMICAO ####Harje[address] [place], [place] [address] UA Urobilinogen 0.2 E.U./dL Normal [facility] ([place]) Comment on above: Performed By: #### U A, UAMICAO ####Harjeet [address] [place], [place] [address] Urobilinogen Test strip Qn (U) Negative Normal Negative [facility] ([place]) Comment on above: Performed By: #### U A, UAMICAO ####Harjeet [address] [place], [place] [address] Vital Signs Date Time Vital Sign Value Performing Clinician Facility 02-17-2023 14:26-0400 Body temperature 96.9 [degF] Dr. Ariadna Roth Work Phone: [facility] 02-17-2023 14:26-0400 Diastolic blood pressure 86 mm[Hg] Dr. Ariadna Roth Work Phone: [facility] 02-17-2023 14:26-0400 Heart rate 65 /min Dr. Ariadna Roth Work Phone: [facility] 02-17-2023 14:26-0400 Respiratory rate 16 /min Dr. Ariadna Roth Work Phone: [facility] 02-17-2023 14:26-0400 SaO2% (BldA) [Mass fraction] 100 % Dr. Ariadna Roth Work Phone: [facility] 02-17-2023 14:26-0400 Systolic blood pressure 127 mm[Hg] Dr. Ariadna Roth Work Phone: [facility] 02-17-2023 09:43-0400 Body height 177.[address] Ariadna Roth Work Phone: [facility] 02-17-2023 09:43-0400 Body mass index (BMI) [Ratio] 30.4 kg/m2 Dr. Ariadna Roth Work Phone: [facility] 02-17-2023 09:43-0400 Body weight 96.[address] Ariadna Roth Work Phone: [facility] 01-05-2023 10:54-0400 Body mass index (BMI) [Ratio] 29.3 kg/m2 Dr. Ariadna Roth Work Phone: [facility] 01-05-2023 10:54-0400 Body weight 95.[address] Ariadna Roth Work Phone: [facility] 10-06-2022 18:58-0400 Diastolic blood pressure 90 mm[Hg] Josh Macias MD Work Phone: [facility] [employer] 10-06-2022 18:58-0400 Heart rate 81 /min Josh Macias MD Work Phone: [facility] [employer] 10-06-2022 18:58-0400 Respiratory rate 18 /min Josh Macias MD Work Phone: [facility] [employer] 10-06-2022 18:58-0400 Systolic blood pressure 137 mm[Hg] Josh Macias MD Work Phone: [facility] [employer] 10-06-2022 15:15-0400 SaO2% (BldA) [Mass fraction] 100 % Josh Macias MD Work Phone: [facility] [employer] 10-06-2022 13:17-0400 Body temperature 98.71 [degF] Josh Macias MD Work Phone: [facility] [employer] Encounters Encounter Date Encounter Type Care Provider Facility Start: 10-18-2024 End: 10-18-[address] Ariadna Roth MD Work Phone: [facility] Work Phone: Start: 10-18-2024 End: 10-18-[address] Ariadna Roth MD -Laboratory [facility] Start: 10-18-2024 End: 10-18-2024 ambulatory Ariadna Roth Facility:[facility] Start: 03-21-2024 End: 03-21-2024 ambulatory Ariadna Roth Facility:[facility] Start: 03-13-2024 End: 03-13-2024 Subsequent hospital visit by physician George Lara MD Work Phone: [facility] Comment on above: Sprain of unspecifie d part of left wrist and hand, initial encounter Start: 03-13-2024 End: 03-13-2024 [facility] Start: 03-04-2024 End: 06-03-2024 Transcribe Orders George Lara MD Work Phone: [facility] Comment on above: Sprain of unspecifie d part of left wrist and hand, initial encounter (Primary Dx) Start: 02-23-2024 End: 02-23-2024 ambulatory GEOR[facility] Start: 02-23-2024 End: 02-23-2024 Subsequent hospital visit by physician George Lara MD Work Phone: [facility] Comment on above: Sprain of unspecifie d part of left wrist and hand, initial encounter Start: 10-03-2023 End: 10-03-2023 ambulatory [facility] Work Phone: Start: 10-03-2023 End: 10-03-2023 Patient encounter procedure [facility] Work Phone: Start: 07-24-2023 End: 07-24-2023 ambulatory [facility] Work Phone: Start: 07-24-2023 End: 07-24-2023 Patient encounter procedure [facility] Work Phone: Start: 07-07-2023 End: 07-07-2023 ambulatory [facility] Work Phone: Start: 07-07-2023 End: 07-07-2023 Patient encounter procedure [facility], [facility] Start: 06-16-2023 End: 06-16-2023 ambulatory [facility] Work Phone: Start: 06-16-2023 End: 06-16-2023 Patient encounter procedure [facility] Work Phone: Start: 02-17-2023 End: 02-17-2023 Admission to same day [facility] Dr. Ariadna Roth Work Phone: [facility] Start: 02-17-2023 End: 02-17-[address] Ariadna Roth Work Phone: [facility] Work Phone: Start: 01-05-2023 End: 01-05-[address] Ariadna Roth Work Phone: [facility] Work Phone: Start: 12-03-2022 End: 12-03-[address] Ariadna Roth Work Phone: [facility] Work Phone: Start: 12-03-2022 End: 12-03-[address] Ariadna Roth Work Phone: [facility] Work Phone: Start: 10-12-2022 Non-patient / Non-visit Dr. Constance Roth Work Phone: [facility] Start: 10-12-2022 End: 10-12-[address] Ariadna Roth Work Phone: [facility] Work Phone: Start: 10-12-2022 End: 10-12-[address] [facility] Start: 10-10-2022 Non-patient / Non-visit Dr. Constance Roth Work Phone: [facility] Start: 10-10-2022 End: 10-10-[address] Ariadna Roth Work Phone: [facility] Work Phone: Start: 10-10-2022 End: 10-10-[address] Ariadna Roth Work Phone: [facility] Start: 10-07-2022 End: 10-07-[address] Ariadna Roth Work Phone: [facility] Work Phone: Start: 10-07-2022 End: 10-07-[address] Ariadna Roth Work Phone: [facility] Start: 10-06-2022 End: 10-06-2022 Emergency department patient visit Josh Macias MD Work Phone: [facility] EM[facility] Comment on above: Chest pain, unspecif ied type (Primary Dx) Start: 09-28-2022 End: 09-28-2022 ambulatory [facility] Work Phone: Start: 09-28-2022 End: 09-28-2022 Patient encounter procedure [facility] Start: 07-21-2022 End: 07-21-2022 ambulatory [facility] Work Phone: Start: 07-21-2022 End: 07-21-2022 [facility] Start: 04-18-2022 End: 04-18-2022 ambulatory [facility] Work Phone: Start: 04-18-2022 End: 04-18-2022 [facility] Start: 04-28-2018 End: 04-28-2018 Emergency department patient visit [facility] Facility:B Start: 03-10-2017 Patient encounter [place] Maribel [facility] Start: 10-08-2014 End: 10-09-2014 Ambulatory [facility] Young H[place]LEY Facility:[facility] Procedures Date Procedure Procedure Detail Performing Clinician Start: 10-18-2024 Urnls dip stick/tabl et reagent auto microscopy Dr. Ariadna Roth MD Work Phone: Start: 10-18-2024 Vitamin D, 25-hydrox y measurement Dr. Ariadna Roth MD Work Phone: Comment on above: Vitamin D StatusDefi ciency: <20 ng/mL (50nmol/L)Insufficiency: 20-30 ng/mL (50-75 nmol/L)Sufficiency: 30-100 ng/mL (75-250 nmol/L)Toxicity: >100 ng/mL (>250 nmol/L) Start: 06-16-2023 Diagnostic radiograp hy of abdomen Start: 06-16-2023 Urine culture Start: 02-17-2023 Fluoroscopic guidance Abiodun Roth Work Phone: Start: 02-17-2023 X-ray of lumbar spin e, two or three views Dr. Ariadna Roth Work Phone: Start: 02-17-2023 Implantation of neurostimulator in spine Dr. Ariadna Roth Work Phone: Start: 01-05-2023 X-ray of lumbar spin e, two or three views Dr. Airadna Roth Work Phone: Start: 12-03-2022 MRI of lumbar spine Dr. Ariadna Roth Work Phone: Start: 10-10-2022 Cardiovascular stres s test using pharmacologic stress agent Dr. Ariadna Roth Work Phone: Start: 10-06-2022 Assay of troponin quantitative Jackie Traore APRN [facility] Work Phone: Start: 10-06-2022 Radiologic exam ches t single view Maren Hart APRN - [employer] Work Phone: Start: 10-06-2022 Basic metabolic pane l calcium total Maren Hart APRN - [employer] Work Phone: Start: 10-06-2022 Ecg routine ecg w/le ast 12 lds trcg only w/o i&r Maren Hart APRN - [employer] Work Phone: Plan of Treatment Date Care Activity Detail Author Start: 2044 RSV Immunization for Adults (1 - 1-dose 75+ series) RSV Immunization for Adults (1 - 1-dose 75+ series) [facility] Start: 2029 RSV Immunization age d 60 or older (1 - 1-dose 60+ series) RSV Immunization aged 60 or older (1 - 1-dose 60+ series) [facility] Start: 02-04-2024 COVID-19 Vaccine ( season) COVID-19 Vaccine ( season) [facility] Start: 02-04-2024 COVID-19 Vaccine ( season) COVID-19 Vaccine ( season) [facility] Start: 02-04-2024 Influenza vaccination Influenza Vacc ine (#1) [facility] Start: 02-17-[facility]23 [facility] Start: 02-03-2023 Influenza vaccination Influenz a Vaccine (Season Ended) [facility] Start: 12-08-2020 COVID-19 Vaccine (3 - Booster for Pfizer series) COVID-19 Vaccine (3 - Booster for Pfizer series) [facility] Start: 2019 Pneumococcal Vaccine : 50+ Years (1 of 1 - PCV) Pneumococcal Vaccine: 50+ Years (1 of 1 - PCV) [facility] Start: 2019 Zoster Vaccines (1 of 2) Zoste r Vaccines (1 of 2) [facility] Start: 1988 DTaP/Tdap/Td Vaccine s (1 - Tdap) DTaP/Tdap/Td Vaccines (1 - Tdap) [facility] Start: 1988 Hepatitis B Vaccines (1 of 3 - 19+ 3-dose series) Hepatitis B Vaccines (1 of 3 - 19+ 3-dose series) [facility] Start: 1987 Hepatitis C screening Hepatitis C Sc reening [facility] Start: 1981 Depression Screening Depression Scre ening [facility] Start: 1970 MMR Vaccines (1 of 1 - Standard series) MMR Vaccines (1 of 1 - Standard series) [facility] Start: 1969 Hepatitis B Vaccines (1 of 3 - 3-dose series) Hepatitis B Vaccines (1 of 3 - 3-dose series) [facility] Start: 1969 HIV screening HIV Screening [facility] Start: 1969 Lipid panel Lipid Panel [facility] Start: 1969 Screening for malign ant neoplasm of colon [facility] End: 03-13-2024 MR Wrist - left WO contrast [facility] Work Phone: Comment on above: Once for 1 Occurrenc es starting 03/13/2024 until 03/13/2024 Patient referral [facility] Work Phone: End: 02-23-2024 XR Wrist - left 3 Views [facility] Work Phone: Comment on above: Once for 1 Occurrenc es starting 02/23/2024 until 02/23/2024 Payers Date Payer Category Payer Private Health Insurance [id number] 2024 Self-pay [id number] 2024 Unknown [id number] 2024 Worker's Compensation 2024 Worker's Compensation [id number] 2019 [place] [facility] [id number] 2018 Unknown [id number] 1970 Unknown [id number] Unknown [id number] Unknown [id number] Social History Date Type Detail Facility Start: 04-16-2020 End: 02-16-2023 Tobacco smoking status NHIS Unknown if ever smoked [facility] Start: 1970 Sex Assigned At Male [facility] Start: 1970 Sex Assigned At Not on file [facility] Start: 09-26-2022 End: 10-06-2022 Exposure to SARS-CoV-2 (event) Not sure [facility] Gender identity Not on file [facility] Start: 01-03-2022 Sex Male (finding) [facility] Start: 02-16-2023 Tobacco smoking stat us NHIS Never smoked tobacco (finding) [facility] Medical Equipment Procedure Code Equipment Code Equipment Origin al Text Equipment Identifier Dates Insertion, spinal cord stimulator, permanent intellis adaptive stim FDA Start: 02-17-2023 Insertion, spinal cord stimulator, permanent [id number] FDA Start: 02-17-2023 Insertion, spinal cord stimulator, permanent [id number] FDA Start: 02-17-2023 Insertion, spinal cord stimulator, permanent intellis adaptive stim FDA Start: 02-17-2023 Insertion, spinal cord stimulator, permanent intellis adaptive stim FDA Start: 02-17-2023 Insertion, spinal cord stimulator, permanent intellis adaptive stim FDA Start: 02-17-2023 Insertion, spinal cord stimulator, permanent intellis adaptive stim FDA Start: 02-17-2023 Stimulator [id number] Start: 02-17-2023 Comment on above: Description: Exit MR I mode with patient controller. Please rrefer to full manual; [email or web address] or digedu Placing the device in MRI mode turns stimulation off. Position the patient in a prone or supine position in the MRI bore Do not cover the patient with blankets or heated blankets. Blankets raise the patient's body temperature and increase the risk of tissue heating, which could cause tissue damage. 1.5-T: Approximately 64 MHz.(Can be 3.0T, refer to specific instructions on [employer]) Types of transmit coils permitted: RF Whole Body Transmit Coil (Integrated Transmit Coil) Detachable Head Transmit/Receive Volume Coil Detachable Lower Extremity Transmit/Receive Volume Coil Receive-only coil: any type. 1.5-T: Use Normal Operating Mode. 1.5-T: Whole body NEYMAR must be less than or equal to 2.0 W/kg as reported by the MRI equipment. 1.5-T: Head NEYMAR must be less than or equal to 3.2 W/kg as reported by the MRI equipment. Gradient systems with a maximum gradient slew rate performance per axis of 200 T/m/s or less. MRI scan durations should not exceed a total of 30 minutes of active scan time within a 90-minute window (within every 90-minute window, there should be a total of 60 minutes of nonscan time). [place] (isocenter location) No restrictions. All anatomical locations can be scanned. Goals Date Patient Goal Desired Activity /State Mental Status Date Assessment Result Facility 02-17-2023 Cognitive function Voice/Name [facility] Work Phone: Clinical Notes 06-23-2021 to 10-06-2022 Kelley Mitchell RN - 10/06/2022 6:52 PM Svitlana Mitchell RN - 10/06/2022 6:52 PM Svitlana Mitchell RN - 10/06/2022 6:11 PM Svitlana Mitchell RN - 10/06/2022 5:19 PM EDT Note Date & Type Note Facility 10-06-2022 Emergency department Note Pt requesting to leave AMA. Physician notified. Kelley Mitchell RN 10/06/221852 [facility] 10-06-2022 Emergency department Note Pt requesting to leave AMA. Physician notified. Kelley Mitchell RN 10/06/221852 Physician paged for pain medications. Kelley Mitchell RN 10/06/22 1811 Meal tray delivered to pt. Family at bedside. Kelley Mitchell RN 10/06/22 1719 EMERGENCY DEPARTMENT ENCOUNTER Pt Name: Abraham Black Birthdate 1970 Date of evaluation: 10/06/2022 ED Provider: Maren Hart APRN - [facility] EDcare was supervised by Dr. Macias who independently examined and evaluated the patient. Please see their attestation note for further details. CHIEF COMPLAINT Chief Complaint Patient presents with Chest Pain BIB [place] for non radiating chest pain x 1 [...] patient and possibility of him having an [place] Patient states understanding and will still sign [...] 10/06/22 1522 DIMAS Oliva CNP 10/06/22 1527 Emergency Department Encounter [facility] EMERGENCY DEPT Patient: Abraham Black : 1970 [...] are mis-transcribed.) JOSH MACIAS MD Acute Care [facility] Josh Macias MD 10/06/22 1647 Bed: 26 Expected date: Expected time: Means of arrival: Comments: EMS Sindy Dukes RN 10/06/22 1316 documented in this encounter [facility] 10-06-2022 Emergency department Note Physician paged for pain medications. Kelley Mitchell RN 10/06/22 1811 [facility] 10-06-2022 Emergency department Note Meal tray delivered to pt. Family at bedside. Kelley Mitchell RN 10/06/22 1719 [facility] 10-06-2022 Emergency department Note Bed: 26 Expected date: Expected time: Means of arrival: Comments: EMS Sindy Dukes RN 10/06/22 1316 [facility] 10-06-2022 Physician Emergency department Note EMERGENCY DEPARTMENT ENCOUNTER Pt Name: Abraham Black Birthdate 1970 Date of evaluation: 10/06/2022 ED Provider: Maren Hart APRN - [facility] EDcare was supervised by Dr. Macias who independently examined and evaluated the patient. Please see their attestation note for further details. CHIEF COMPLAINT Chief Complaint Patient presents with Chest Pain BIB [place] for non radiating chest pain x 1 [...] patient and possibility of him having an [place] Patient states understanding and will still sign [...] DIMAS Oliva CNP 10/06/22 1527 [facility] 10-06-2022 Physician Emergency department Note Emergency Department Encounter [facility] EMERGENCY DEPT Patient: Abraham Black : 1970 [...] are mis-transcribed.) JOSH MACIAS MD Acute Care [facility] Josh Macias MD 10/06/22 1647 [facility] Work Phone: 06-23-2021 Note HNO ID: [id number] Author: Marylou Rich, PhD Service: ? Author Type: Psychologist Type: Progress Notes Filed: 06/23/2021 11:01 AM Note Text: [facility] Progress Note Abraham Black 06/23/2021 [id number] Provider: Marylou Rich, PhD CPT Code: 43932 Psychiatric diagnostic evaluation Time: Approximately 50 minutes [...] Psychiatric Medication Issues: see med record DIAGNOSIS: [place] I: Chronic Pain [place] II: deferred [place] III: see med record [place] IV: pain [place] V: 50-55 Treatment Modality/Interventions: Cognitive Behavioral Reassurance/Supportive Psychoeducation TREATMENT ASSESSMENT/PROGRESS: . Progressing satisfactorily. TREATMENT PLAN/GOALS: Continue in therapy focusing on self-care, stress management, affect management and coping with pain. Next appointment: None scheduled. Pt wiill call if issues arise. Marylou Rich, PhD [facility] Evaluation note No assessment inform ation available [facility] Work Phone: Evaluation note Diagnosis Chest pain, unspecified type Chest pain, unspecified type documented [facility] this [facility] Diagnosis Onset Date Resolution Status S/P lumbar fusion acute [facility] Work Phone: Evaluation note* Diagnosis Sprain of unspecified part of left wrist and hand, initial encounter documented in this encounter [facility] [employer] note* Diagnosis Sprain of unspecified part of left wrist and hand, initial encounter documented in this encounter [facility]* Diagnosis Sprain of unspecified part of left wrist and hand, initial encounter- Primary Sprain of unspecified part of left wrist and hand, initial encounter documented in this encounter [facility] Discharge instructions Additional Instructions Implant Used?: [facility] Work Phone: Reason for referral (narrative)No reason for referral information available[facility] Hospital Work Phone: Summary Purpose Family History No Family History Records Found Relationship Condition Age at Onset Recorded Date/T madai mother Diabetes mellitus Unknown Hypertension Unknown father Malignant neoplasm of colon Unknown Advance Directives No Advanced Directives Records Found Advance Directive Response Recorded Date/ Time Living Will No March 25 12:42pm Power of Automation Operator No March 25, 2020 12:42pm Advance Directive Response Recorded Date/ Time Living Will No March 25 1:42pm Power of Automation Operator No March 25, 2020 1:42pm Latest Code Status on File Code Status Date Activated Date Inactivated Comments Full Code 10/06/2022 2:49 PM 10/06/2022 9:04 PM Advance Directive Response Recorded Date/ Time Living Will No February 16, 2023 2:03pm Power of Automation Operator No February 2:03pm Advance Directive Response Recorded Date/ Time Living Will No February 16, 2023 1:03pm Power of Automation Operator No February 1:03pm Date Activated Date Inactivated Comments 10/06/2022 2:49 PM 10/06/2022 9:04 PM Date Activated Date Inactivated Comments 10/06/2022 2:49 PM 10/06/2022 9:04 PM Chief Complaint and Reason for Visit Chief Complaint CP CP Chief Complaint CP CP SOB ON EXERTION Chief Complaint CP CP SOB ON EXERTION Postlaminectomy syndrome Chief Complaint Postlaminectomy synd gilma LUMBAR SPINE RM 3 Insertion, Spinal Cord Stim,Permane Reason for Visit S/P lumbar fusion Reason for Referral Specialty Diagnoses / Procedures Referred By Kai t Referred To Contact Radiology Diagnoses Sprain of unspecified part of left wrist and hand, initial encounter Procedures MR wrist left wo IV contrast George Lara MD [address] [place] [address] [facility] [address] [place] [address] Referral ID Status Reason Start Date Expiration Date Visits Re quested Visits Authorized [id number] Closed 03/04/2024 03/04/2025 1 1 Additional Source Comments (unrecognized sect ion and content) No Status Records FoundNo Status Records FoundNo Status Records FoundNo Status Records FoundNo Status Records FoundNo Status Records FoundNo Status Records Found INFORMATION SOURCE (unrecogn ized section and content) DATE CREATED AUTHOR 11/29/2017 [place] [facility] DATE CREATED AUTHOR AUTHOR'S ORGANIZ ATION 12/21/2017 [facility] DATE CREATED AUTHOR AUTHOR'S ORGANIZ ATION 05/14/2018 [facility] ([place]) DATE CREATED AUTHOR AUTHOR'S ORGANIZ ATION 12/27/2019 [facility] DATE CREATED AUTHOR AUTHOR'S ORGANIZ ATION 07/28/2021 [facility] DATE CREATED AUTHOR AUTHOR'S ORGANIZ ATION 03/15/2024 [facility] DATE CREATED AUTHOR AUTHOR'S ORGANIZ ATION 10/24/2024 [facility] Goals (unrecognized section and content) Goals may be documented in a n alternate sectionGoals may be documented in an alternate sectionGoals may be documented in an alternate sectionGoals may be documented in an alternate sectionGoals may be documented in an alternate sectionGoals may be documented in an alternate sectionGoals may be documented in an alternate sectionGoals may be documented in an alternate sectionGoals may be documented in an alternate sectionGoals may be documented in an alternate sectionGoals may be documented in an alternate sectionGoals may be documented in an alternate section Care Teams (unrecognized sec tion and content) Team Status: Active Member Role Status Dates Dr. Hudson Overton MD Family Provider Active No Primary Care Physician Primary Care Provider Active Team Status: Inactive Member Role Status Dates Dr. Hudson Overton MD Primary Care Provider Active Dr. Chelita Gallego MD Attending Provider, Referring Pr ovider Active Team Status: Inactive Member Role Status Dates Dr. Moncho Harrison MD Attending Provider, Referri ng Provider Active No Primary Care Physician Primary Care Provider Active Team Status: Active Member Role Status Dates Dr. Hudson Overton MD Family Provider Active Dr. Ariadna Roth MD Primary Care Provider Active Team Status: Inactive Member Role Status Dates Dr. Ariadna Roth MD Primary Care Provider, Attend ing Provider Active Team Status: Active Member Role Status Dates Dr. Ariadna Roth MD Primary Care Pr ovider, Referring Provider, Other Provider Active Dr. Danny Arroyo MD Attending Provider Activ e Team Status: Active Member Role Status Dates Dr. Ariadna Roth MD Primary Care Pr ovider, Attending Provider, Referring Provider Active Team Status: Active Member Role Status Dates Dr. Ariadna Roth MD Primary Care Provider Active Dr. Benito Solis MD Attending Provider Active Team Status: Inactive Member Role Status Dates Dr. Ariadna Roth MD Primary Care Pr ovider, Attending Provider, Referring Provider Active Team Status: Inactive Member Role Status Dates Dr. Ariadna Roth MD Primary Care Provider Active Dr. Chelita Gallego MD Attending Provider, Referring Pr ovider Active Team Status: Inactive Member Role Status Dates Dr. Ariadna Roth MD Primary Care Provider, Referr ing Provider Active Dr. Yuriy Tripathi DO Attending Provider Active Team Status: Inactive Member Role Status Dates Dr. Ariadna Roth MD Primary Care Provider Active Dr. Benito Solis MD Attending Provider Active Team Status: Inactive Member Role Status Dates Dr. Ariadna Roth MD Primary Care Provider Active Dr. Moncho Harrison MD Attending Provider, Referri Provider Active [employer] Relationship Specialty Start Date End Date Ariadna Roth MD [address] [place] [id number] PCP - General Family Medicine 03/05/24 Team Status: Inactive Member Role Status Dates Dr. Ariadna Roth MD Primary Care Provider Active Start: October 18, 2024 End: October 18, 2024 Dr. Ariadna Roth MD Attending Provider Active Start: October 18, 2024 End: October 18, 2024 Dr. Ariadna oRth MD Referring Provider Active Start: October 18, 2024 End: October 18, 2024 Reason for Visit (unrecogniz ed section and content) Reason Comments Chest Pain BIB [place] for non ra diating chest pain x 1 day while walking up the steps at work. Pt is HTN upon arrival and states he took his HTN meds this am. EMS gave 0.4 nitroglycerin and 325 mg ASA. Specialty Diagnoses / Procedures Referred By Kai king Referred To Contact Radiology Diagnoses Sprain of unspecified part of left wrist and hand, initial encounter Procedures MR wrist left wo IV contrast George Lara MD [address] [place] [address] [facility] [address] [place] [address] Referral ID Status Reason Start Date Expiration Date Visits Re quested Visits Authorized [id number] Closed 03/04/2024 03/04/2025 1 1 Scheduled Active and Recently Administ ered Medications (unrecognized section and content) Medication Order 10/04/2022 10/05/2022 10/06/2022 amLODIPine (Norvasc) tablet 5 mg 5 mg, Oral, Daily, First dose on Giovana 10/06/22 at 1540 1705 (Given - Provid er: Kelley Mitchell RN) aspirin chewable tablet 81 mg 81 mg, Oral, Daily, First dose on Mon10/07/22 at 0900 enoxaparin (Lovenox) syringe 40 mg 40 mg, SubCUTAneous, Every 24 hours scheduled (Daily), First dose on Mon10/06/22 at 1450, Indication of Use: Prophylaxis-DVT/PE, Indications: Prophylaxis of Venous Thromboembolism 1450 (Not Given - Pr ovider: Kelley Mitchell RN - Reason: Patient/family refused) famotidine (Pepcid) tablet 40 mg 40 mg, Oral, Daily, First dose on Giovana 10/06/22 at 1540 1705 (Given - Provid er: Kelley Mitchell RN) fenofibrate (Triglide) tablet 160 mg 160 mg, Oral, Daily, First dose on Mon10/06/22 at 1540, Substituted for Fenofibrate (Non-Formulary Dose). 1714 (Given - Provid er: Kelley Mitchell RN) oxyCODONE (Roxicodone) immediate release tablet 15 mg 15 mg, Oral, Once, On Mon10/06/22 at 1850, For 1 dose 1850 (Canceled Entry - Provider: Automatic Discharge Provider - Comment: Automatically canceled at discontinue of medication order) pravastatin (Pravachol) tablet 80 mg 80 mg, Oral, Nightly, First dose on Mon10/06/22 at 2100 2100 (Canceled Entry - Provider: Automatic Discharge Provider - Comment: Automatically canceled at discontinue of medication order) valACYclovir (Valtrex) tablet 500 mg 500 mg, Oral, Daily, First dose on Mon10/06/22 at 1540, Coverage: Herpes simplex, Infection Site: Site Not Specified 1540 (Given - Provid er: Kelley Mitchell RN) valsartan (Diovan) tablet 160 mg 160 mg, Oral, Daily, First dose on Mon10/06/22 at 1540 [id number] (Given - Provid er: Kelley Mitchell RN) PRN Medication Order 10/04/2022 10/05/2022 10/06/2022 acetaminophen [...] BE BASED ON THE PRIMARY CLINICAL RECORDS. [employer] provides no warranty or guarantee of the accuracy or completeness of information in this document.
== END | disposition home or self-care (01) ==
LOC: MRI 15:28
PROVIDERS: PCP Family Medicine; Referring Provider Anesthesiology Pain Medicine; Visit Provider Anesthesiology Pain Medicine
DX: M96.1 Postlaminectomy syndrome, not elsewhere classified (principal)
CPT/HCPCS: 72148